=== PATIENT | female | born 1940 | race African-American/Black ===

== ENCOUNTER 2020-06-17 18:32 | Inpatient (IN) | payer MEDICARE, MEDICAID, OTHER ==
--- NOTE | 2020-06-17 19:14 | RAD ---
Exam: Chest one view HISTORY:Trauma. COVID pneumonia. Comparison: 01/06/2020 FINDINGS: Cardiac silhouette:Cardiomegaly. Aorta: Atherosclerosis Pulmonary vessels: Normal Costophrenic angles: Clear LUNGS: Hyperinflation. Interstitial and alveolar infiltrates predominantly in the right lower lobe. Pneumothorax: None Osseous abnormalities: None IMPRESSION: 1. Cardiomegaly 2. Atherosclerosis 3. Interstitial and alveolar opacities in the right lower lobe.
--- NOTE | 2020-06-17 19:22 | CT ---
Exam: Head CT without contrast HISTORY: Unwitnessed fall COMPARISON: 12/07/2019 FINDINGS: Hemorrhage: No intraparenchymal hemorrhage or extra-axial hematoma. Brain parenchyma: Cortical carmona-white matter differentiation is preserved. No mass effect or midline shift. Basilar cisterns are patent.Diffuse atrophy. Confluent white matter hypodensities due to chronic small vessel ischemic change. Ventricular system: Marked dilatation of ventricular system which is slightly greater than expected f or the degree of atrophy. Ventricular dilatation has not increased since the previous examination. Correlate for normal pressure hydrocephalus. Calvarium: Intact. Sinuses and mastoid air cells: Adequate aeration. IMPRESSION: No acute intracranial process.
[2020-06-17 19:52] LABS: Hemoglobin 7.2 g/dL (12.0-16.0); Mean Corpuscular HGB CONC 29.6 g/dL (32.0-36.0); Mean Corpuscular Hemoglobin 29.2 pg (27.0-31.0); Mean Corpuscular Volume 98.8 fL (78.0-98.0); Mean Platelet Volume 7.7 fL (7.4-10.4); Platelet Count 408 thou/uL (130-400); RBC Distribution Width 16.3 % (11.5-14.5); Red Blood Cell (RBC) Count 2.46 mill/uL (4.20-5.40)
[2020-06-17 20:04] LABS: Anisocytosis SLIGHT = 6-15 cells (100X) (0-5/hpf); Band 8 % (5-11); Lymphocytes 4 % (21-51); MDiff Complete? YES; Monocytes 2 % (0-10); Neutrophil 86 % (42-75); Platelet Morphology Comment Appears Increased; Polychromasia SLIGHT = 2-3 cells (100X) (0-2/hpf); Target Cells SLIGHT = 2-5 cells (100X) (0-1/hpf); White Blood Cell (WBC) Count 24.9 thou/uL (4.8-10.8)
[2020-06-17 20:12] LABS: ALT (SGPT) Less than 7 U/L (8-55); AST (SGOT) 19 U/L (5-34); Albumin 2.7 g/dL (3.4-4.8); Alkaline Phosphatase 103 U/L (40-110); Anion Gap 18 mmol/L (10-20); BUN (Urea Nitrogen) 34 mg/dL (9.8-20.1); Bilirubin, Total 0.2 mg/dL (0.2-1.2); Calc. Creatinine Clearance 0 mL/min (70-130); Calcium 8.5 mg/dL (7.8-10.44); Carbon Dioxide 21 mmol/L (23-31); Chloride 111 mmol/L (98-107); Estimated GFR-MDRD 61; Globulin 4.4 g/dL (2.4-3.5); Glucose 144 mg/dL (83-110); Potassium 4.2 mmol/L (3.5-5.1); Protein, Total 7.1 g/dL (6.0-8.3); Sodium 146 mmol/L (136-145)
[2020-06-17] MEDS ORDERED: Cefepime 1 GM VIAL ONE (20:27)
[2020-06-17] MEDS ORDERED: Cefepime 1 GM in Sodium Chloride 0.9% 100 ML IVPB SCH (20:30)
[2020-06-17] MEDS ORDERED: Sodium Chloride 0.9% 1,000 ML IV SCH ×2 (20:30→23:15)
[2020-06-17] MEDS ORDERED: Vancomycin HCl 750 MG in Sodium Chloride 0.9% 250 ML 250 ML IVPB SCH (20:30)
[2020-06-17 20:34] LABS: Bilirubin Negative (Negative); Blood, Urine Negative (Negative); Clarity Turbid (Clear); Glucose, Urine (Dipstick) Normal (Negative); Ketone, Urine Trace mg/dL (Negative); Leukocyte 250 Leu/uL (Negative); Nitrite Negative (Negative); Protein, Urine (Dipstick) 50 mg/dL (Neg-Trace); RBC/HPF 0-3 HPF (0-3); Specific Gravity, Urine 1.028 (1.002-1.036); Squamous Epithelial 0-3 HPF (0-3); Urobilinogen Normal mg/dL (Less than 2); pH, Urine 5.5 (5.0-9.0)
[2020-06-17 20:39] LABS: Bacteria/HPF Rare-Few HPF (None Seen); Yeast-Budding 2+ HPF (None Seen)
[2020-06-17 22:51] LABS: Lactic Acid 3.1 mmol/L (0.5-2.2)
[2020-06-17] MEDS ORDERED: cloNIDine 0.1 MG TAB PO PRN (23:10)
[2020-06-17] MEDS ORDERED: Labetalol HCl 100 MG/20 ML VIAL SLOW IVP PRN (23:10)
[2020-06-17] MEDS ORDERED: hydrALAZINE 20 MG/ML VIAL SLOW IVP PRN (23:10)
[2020-06-17] MEDS ORDERED: Ondansetron PF 4 MG/2 ML Vial IVP PRN (23:10)
[2020-06-17] MEDS ORDERED: Promethazine HCl 12.5 MG in Sodium Chloride 0.9% 50 ML IVPB PRN (23:10)
[2020-06-17] MEDS ORDERED: Bisacodyl 5 MG TAB PO PRN (23:12)
--- NOTE | 2020-06-17 23:15 | PDOC.HHP ---
Hospitalist HPI - History of Present Illness Fall, altered mental status History of Present Illness: Patient is a 79 year old female with PMH COPD, dementia, HTN, GERD, rheumatoid arthritis who presents to ED for unwitnessed fall. Patient lives at [facility] and was found on floor around 1830, unknown duration on floor, she was AOx0 and at baseline is AOx1. She has longstanding RLE dry gangrene and has not been able to have operations reportedly per ortho and cardiology as stated by [facility] hospital records she was sent with, otherwise there is no supporting evidence provided of issues, they do report that this is an ischemic leg Hospitalist ROS - Review of Systems ROS unobtainable: due to mental status - Medication Medications: ascorbic acid (vitamin C) oral TueJun 17, 2020 19:37 ZOIE Ruiz Hannah tablet : Strength - 500 mg : ORAL Patient Dose: 1 tab(s) Oral 2 times a day. budesonide inhalation TueJun 17, 2020 19:38 ZOIE Ruiz Hannah suspension for nebulization : Strength - 0.5 mg/2 mL : INHALATION Patient Dose: 2 mL Inhaler every 12 hours PRN. Claritin TueJun 17, 2020 19:38 ZOIE Ruiz Hannah tablet : Strength - 10 mg : ORAL Patient Dose: 1 tab(s) Oral once a day. docusate sodium TueJun 17, 2020 19:39 ZOIE Ruiz Hannah tablet : Strength - 100 mg : ORAL Patient Dose: 1 tab(s) Oral 2 times a day. donepezil TueJun 17, 2020 19:40 ZOIE Ruiz Hannah tablet : Strength - 10 mg : ORAL Patient Dose: 1 tab(s) Oral once a day (at bedtime). ferrous sulfate TueJun 17, 2020 19:41 ZOIE Ruiz Hannah tablet : Strength - 325 mg (65 mg iron) : ORAL Patient Dose: 1 tab(s) Oral 2 times a day. Lactobacillus acidophilus TueJun 17, 2020 19:42 ZOIE Ruiz Hannah capsule : ORAL Patient Dose: 1 cap(s) Oral once a day. leflunomide TueJun 17, 2020 19:42 ZOIE Ruiz Hannah tablet : Strength - 20 mg : ORAL Patient Dose: 1 tab(s) Oral once a day. levETIRAcetam oral TueJun 17, 2020 19:43 ZOIE Ruiz Hannah tablet : Strength - 500 mg : ORAL Patient Dose: 1 tab(s) Oral 2 times a day. magnesium TueJun 17, 2020 19:43 ZOIE Ruiz Hannah tablet : Strength - 200 mg : ORAL Patient Dose: 2 tab(s) Oral 2 times a day. metoprolol tartrate oral TueJun 17, 2020 19:44 ZOIE Ruiz Hannah tablet : Strength - 50 mg : ORAL Patient Dose: 1 tab(s) Oral 2 times a day. miSOPROStol TueJun 17, 2020 19:44 ZOIE Ruiz Hannah tablet : Strength - 200 mcg : ORAL Patient Dose: 1 tab(s) Oral 3 times a day. multivitamin oral TueJun 17, 2020 19:45 ZOIE Ruiz Hannah tablet : ORAL Patient Dose: 1 tab(s) Oral once a day. Tylenol TueJun 17, 2020 19:45 ZOIE Ruiz Hannah tablet : Strength - 325 mg : ORAL Patient Dose: 2 tab(s) Oral every 6 hours PRN. Tylenol-Codeine #3 TueJun 17, 2020 19:46 ZOIE Ruiz Hannah tablet : Strength - 300 mg-30 mg : ORAL Patient Dose: 1 tab(s) Oral every 6 hours PRN. Hospitalist History - Past Medical History Other Medical History: COPD, dementia, HTN, GERD, rheumatoid arthritis - Past Surgical History Other Surgical History: unable to obtain due to altered mental status - Family History Other Family History: unable to obtain due to altered mental status - Social History Smoking Status: Never smoker Alcohol: reports: None Drugs: reports: none - Exam General Appearance: NAD, awake alert General - other findings: altered mental status Eye: PERRL, anicteric sclera ENT: normocephalic atraumatic, no oropharyngeal lesions Neck: supple, no JVD Heart: RRR, no murmur, no gallops Respiratory: CTAB, no wheezes, no rales, no ronchi Gastrointestinal: soft, non-tender, non-distended, normal bowel sounds Extremities: no clubbing, no edema Extremities - other findings: RLE contracted with dry gangrene and eschar on most of leg no erythema Skin - other findings: as above under extremities Neurological - other findings: contracture to extremities, altered mental status Musculoskeletal - other findings: contracture to extremities, RLE as above Psychiatric - other findings: altered mental status Hospitalist Results - Labs Result Diagrams: 06/17/20 19:42 06/17/20 19:42 Lab results: WBC 24.9 thou/uL (4.8-10.8) H 06/17/20 19:42 Hgb 7.2 g/dL (12.0-16.0) L 06/17/20 19:42 Hct 24.3 % (36.0-47.0) L 06/17/20 19:42 MCV 98.8 fL (78.0-98.0) H 06/17/20 19:42 Plt Count 408 thou/uL (130-400) H 06/17/20 19:42 Band Neuts % (Manual) 8 % (5-11) 06/17/20 19:42 Sodium 146 mmol/L (136-145) H 06/17/20 19:42 Potassium 4.2 mmol/L (3.5-5.1) 06/17/20 19:42 Chloride 111 mmol/L (98-107) H 06/17/20 19:42 Carbon Dioxide 21 mmol/L (23-31) L 06/17/20 19:42 BUN 34 mg/dL (9.8-20.1) H 06/17/20 19:42 Creatinine 1.05 mg/dL (0.6-1.1) 06/17/20 19:42 Glucose 144 mg/dL (83-110) H 06/17/20 19:42 Lactic Acid 3.1 mmol/L (0.5-2.2) H 06/17/20 22:27 Calcium 8.5 mg/dL (7.8-10.44) 06/17/20 19:42 Total Bilirubin 0.2 mg/dL (0.2-1.2) 06/17/20 19:42 AST 19 U/L (5-34) 06/17/20 19:42 ALT Less than 7 U/L (8-55) L 06/17/20 19:42 Alkaline Phosphatase 103 U/L (40-110) 06/17/20 19:42 Serum Total Protein 7.1 g/dL (6.0-8.3) 06/17/20 19:42 Albumin 2.7 g/dL (3.4-4.8) L 06/17/20 19:42 Urine Ketones Trace mg/dL (Negative) A 06/17/20 19:00 Urine Blood Negative (Negative) 06/17/20 19:00 Urine Nitrite Negative (Negative) 06/17/20 19:00 Ur Leukocyte Esterase 250 Luis/uL (Negative) A 06/17/20 19:00 Urine RBC 0-3 HPF (0-3) 06/17/20 19:00 Urine WBC 11-20 HPF (0-3) A 06/17/20 19:00 Ur Squamous Epith Cells 0-3 HPF (0-3) 06/17/20 19:00 Urine Bacteria Rare-Few HPF (None Seen) 06/17/20 19:00 Additional comment: VITAL SIGNS TueJun 17, 2020 23:01 ZOIE Bender Miranda BP: 128/66 Pulse: 92 O2 sat: 96 on (Room Air) Time: 06/17/2020 23:01. outside records reviewed ~[address] head, CXR reports reviewed - EKG Interpretation EKG: sinus tachycardia, rate 102, no ST elevtions or dropped beats Hospitalist H&P A/P - Plan Plan: Patient is a 79 year old female with PMH COPD, dementia, HTN, GERD, rheumatoid arthritis who presents to ED for unwitnessed fall. 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 # sepsis due to above - admit to floor - surgery consulted by ED - consult wound care - empiric vancomycin/unasyn - follow cultures - in past has been deemed not surgical candidate by cardiology, consult cardiology, no testing records were provided - has previously tested positive for covid but now negative # hypernatremia - in setting of hypovolemia and sepsis, IVF and trend BMP # metabolic encephalopathy - treat infection as above # lung opacities - history of covid, no respiratory symptoms currently may be resolving pneumonia # COPD - PRN duonebs, continue budesonide, hold claritin # UTI - will be treated with above abx, follow cultures # Dementia - continue donepezil # history of seizure - continue keppra # RA - hold leflunomide in setting of infection, PRN pain medications ordered # HTN - prn medications ordered, continue metoprolol # anemia - chronic, hold DVT ppx # GERD - H2RA # debility - requires full care, consult therapy and case management DVT ppx - held due to lower extremity edema and wounds so no SCDs, lovenox held due to anemia Code status - full per longterm records
[2020-06-18] MEDS: Ampicillin/Sulbactam 3 GM in Sodium Chloride 0.9% 100 ML IVPB SCH ×4 (00:23→18:27)
[2020-06-18 00:37] VITALS: BMI 26.2
[2020-06-18 05:31] LABS: #Basophils 0.1 thou/uL (0.0-0.2); #Lymphocytes 1.6 thou/uL (1.20-3.40); #Neutrophils 19.5 thou/uL (1.40-6.50); %Basophils 0.3 % (0.0-1.0); %Eosinophils 0.1 % (0.0-10.0); %Monocytes 4.7 % (0.0-10.0); %Neutrophils 87.9 % (42.0-75.0); Hemoglobin 6.7 g/dL (12.0-16.0); Mean Corpuscular HGB CONC 28.5 g/dL (32.0-36.0); Mean Corpuscular Hemoglobin 28.2 pg (27.0-31.0); Mean Corpuscular Volume 98.8 fL (78.0-98.0); Mean Platelet Volume 8.6 fL (7.4-10.4); Platelet Count 374 thou/uL (130-400); RBC Distribution Width 16.3 % (11.5-14.5); Red Blood Cell (RBC) Count 2.36 mill/uL (4.20-5.40); White Blood Cell (WBC) Count 22.2 thou/uL (4.8-10.8)
[2020-06-18 05:40] LABS: Anion Gap 16 mmol/L (10-20); BUN (Urea Nitrogen) 31 mg/dL (9.8-20.1); Calc. Creatinine Clearance 36 mL/min (70-130); Calcium 7.8 mg/dL (7.8-10.44); Carbon Dioxide 19 mmol/L (23-31); Chloride 116 mmol/L (98-107); Estimated GFR-MDRD 84; Glucose 102 mg/dL (83-110); Sodium 147 mmol/L (136-145)
[2020-06-18] MEDS ORDERED: Budesonide 0.5 MG/2 ML NEB INH SCH (06:30)
[2020-06-18] MEDS: levETIRAcetam 500 MG TAB PO SCH ×2 (08:21→19:56)
[2020-06-18] MEDS: Famotidine 20 MG TAB PO SCH ×2 (08:21→19:56)
[2020-06-18] MEDS ORDERED: Enoxaparin Sodium 30 MG/0.3 ML SYRINGE SC SCH (09:00)
--- NOTE | 2020-06-18 10:06 | PDOC.HOSPP ---
- Subjective Encounter Date: 06/18/20 Subjective: Confused related to dementia. - Objective Vital Signs & Weight: Vital Signs (12 hours) Temp Pulse Resp BP BP Pulse Ox 06/18/20 07:42 104 H 16 100 06/18/20 07:40 104 H 16 100 06/18/20 07:15 98.7 F 106 H 15 131/66 97 06/18/20 05:18 97.9 F 98 16 101/62 100 06/17/20 23:35 97.8 F 104 H 18 156/64 H 100 Weight Weight 85 lb 12.157 oz I&O: 06/17/20 06/18/20 06/19/20 06:59 06:59 06:59 Output Total 300 Balance -300 Result Diagrams: 06/18/20 05:13 06/18/20 05:13 Hospitalist ROS - Medication Medications: Active Medications Generic Name Dose Route Start Last Admin Trade Name Freq PRN Reason Stop Dose Admin Albuterol/Ipratropium 3 ml 06/17/20 23:10 06/18/20 07:42 Duoneb NEB 3 ml [id number] PRN Administration SOB &/or Wheezing Budesonide 0.5 mg 06/18/20 06:30 06/18/20 07:40 Pulmicort Neb Solution INH 0.5 mg BID-RT JOSE Administration Famotidine 20 mg 06/18/20 09:00 06/18/20 08:21 Pepcid PO Not Given BID JOSE Ampicillin Sodium/Sulbactam 100 mls @ 200 mls/hr 06/17/20 23:59 06/18/20 05: 56 Sodium 3 gm/ Sodium Chloride IVPB 100 mls Q6HR JOSE Administration Levetiracetam 500 mg 06/18/20 09:00 06/18/20 08:21 Keppra PO Not Given BID JOSE Sodium Chloride 10 ml 06/18/20 09:00 06/18/20 08:21 Flush - Normal Saline IVF Not Given Q12HR JOSE - Exam General - other findings: Nonverbal and confused Neck: supple Respiratory: normal chest expansion, no tachypnea Extremities - other findings: Left lower extremity from the toes to below the knee is Gangrenous Hosp A/P - Plan Hospitalist H&P A/P - Plan Plan: Patient is a 79 year old female with PMH COPD, dementia, HTN, GERD, rheumatoid arthritis who presents to ED for unwitnessed fall. 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 # sepsis due to above - admit to floor - surgery consulted by ED - consult wound care - empiric vancomycin/unasyn - follow cultures - in past has been deemed not surgical candidate by cardiology, consult cardiology, no testing records were provided - has previously tested positive for covid but now negative # hypernatremia - in setting of hypovolemia and sepsis, IVF and trend BMP # metabolic encephalopathy - treat infection as above # lung opacities - history of covid, no respiratory symptoms currently may be resolving pneumonia # COPD - PRN duonebs, continue budesonide, hold claritin # UTI - will be treated with above abx, follow cultures # Dementia - continue donepezil # history of seizure - continue keppra # RA - hold leflunomide in setting of infection, PRN pain medications ordered # HTN - prn medications ordered, continue metoprolol # anemia - chronic, hold DVT ppx # GERD - H2RA # debility - requires full care, consult therapy and case management DVT ppx - held due to lower extremity edema and wounds so no SCDs, lovenox held due to anemia Code status - full per [facility] records 06/18: Patient is septic likely due to UTI. We continued IV antibiotics for now. Gangrenous left lower extremity. Dr. Roawn discussed patient's condition with the family. He has extremely poor prognosis long-term. Recommended against amputation, PEG tube, and full CODE STATUS. The family expressed understanding. Consult for palliative care to facilitate goals of care discussed hospice.
[2020-06-18 12:09] LABS: SARS-CoV-2 by NAA DETECTED (NotDetected)
[2020-06-18 12:10] LABS: SARS-CoV-2 MS2 Positive; SARS-CoV-2 N Gene Positive; SARS-CoV-2 S Gene Positive; SARS-CoV-2 orf1ab Positive
--- NOTE | 2020-06-18 13:02 | CON ---
DATE OF CONSULTATION: HISTORY OF PRESENT ILLNESS: Aidee Fuentes is a 79-year-old female patient, had been in a care facility, brought into the hospitalist service late last night. I was consulted regarding gangrenous right leg and poor intake. The patient is a resident at [facility]. I have talked to the daughter on the telephone, who informed me the patient has a history of dementia, severe rheumatoid arthritis, and disability, bedridden and nonambulatory. She suffers hypertension and GERD and presents for an unwitnessed fall. The family states that she does talk occasionally, although she will not talk to me. Daughter states that she was recently at [facility], and amputation was considered, but she was anemic and hypokalemic and the operation was not performed. This hospitalization, her potassium is normal, renal function is normal, hemoglobin was 7.2 yesterday and 6.7 today, and white count [id number]. Blood cultures obtained, no growth today. The patient has a Quintanilla catheter in place. ALLERGIES: REPORTED NONE. MEDICATIONS: From the correction: 1. Zinc. 2. Misoprostol. 3. Tylenol No. 3. 4. Multivitamin. 5. Ascorbic acid. 6. Tylenol. 7. Keppra. 8. Metoprolol. 9. Arava. 10. Lactobacillus. 11. Ferrous sulfate. 12. Colace. 13. Loratidine. REVIEW OF SYSTEMS: The patient cannot give a history and past history is taken from the hospital records. The patient is bed ridden, nonambulatory, resident at [facility]. PAST MEDICAL HISTORY: She has a history of: 1. GERD. 2. Hypertension. 3. Rheumatoid arthritis, nonambulatory status. 4. COPD. 5. PAD with arteriosclerosis and gangrene of her right leg to below the knee, contracture of right leg, unable to straighten her right hip and knee. The patient's family denies that she had a stroke. SOCIAL HISTORY: Tobacco, alcohol, and drug never. PAST SURGICAL HISTORY: None reported. PHYSICAL EXAMINATION: VITAL SIGNS: Height 4 feet tall, weight 85 pounds, 26 BMI, temperature 98.7, heart rate 104, and blood pressure 131/66. HEAD, EARS, EYES, NOSE, AND THROAT: Unremarkable. LUNGS: Clear. CARDIAC: Regular rate and rhythm. ABDOMEN: Soft. EXTREMITIES: I can palpate femoral pulse with some difficulties. She has a contracted right knee and right hip. I cannot straighten them out. She has dry gangrene of the entire right leg below the knee. LABORATORY DATA: As noted with severe anemia. ASSESSMENT AND PLAN: The patient is a full code. She has dry gangrene in the right leg and surgical intervention is not warranted. She is feeding poorly and feeding tube should be considered and discussed with the family. Code status should be discussed with family. I then on the telephone talked to the patient's daughter who lives in [place]. There are other family members in [place]. One of the family members was refused to access to visit their mother yesterday because of the COVID situation. I have talked to the daughter in [place] and she requests the family to be able to see her and I have put the family in contact with nursing to allow the family to visit her to help establish code status. We would recommend DNR status. Family does not want a feeding tubes, tracheostomies, or amputations and I agree that this would not be appropriate as it would not improve her quality of life. Would suggest DNR status and the family will discuss that. At this point, I will see her as needed. Please call if necessary. I suspect her sepsis is due to urinary source or pneumonia or decubitus, but not her right leg. Job ID: [id number]
--- NOTE | 2020-06-18 14:48 | CON ---
DATE OF CONSULTATION: CONSULTING DOCTOR: Dr. Murray. HISTORY OF PRESENT ILLNESS: The patient is an unfortunate woman with severe dementia and cachexia, who presents with a gangrenous foot and may need to undergo surgery. The patient is unable to give any type of coherent history. She was recently at the [facility] with sepsis. She was apparently felt to be at high risk for complication from undergoing surgery. She was in the [facility] when she apparently fell. The patient was admitted for further evaluation. PAST MEDICAL HISTORY: Significant for; 1. Dementia. 2. History of renal failure. 3. Cachexia. 4. Hypertension. 5. COPD. PAST SURGICAL HISTORY: SOCIAL HISTORY: Lives in [facility]. MEDICATIONS: See nursing list. ALLERGIES: NO KNOWN DRUG ALLERGIES. REVIEW OF SYSTEMS: Not obtainable. PHYSICAL EXAMINATION: VITAL SIGNS: Blood pressure 131/66, heart rate is 106. Physical exam is deferred due to COVID. LABORATORY RESULTS: White blood cell count 22.2, hemoglobin 6.7, hematocrit 23.3, platelets 374. Sodium 147, potassium 4.0, chloride 116, bicarb 19, BUN 31, creatinine was 0.8. Her EKG revealed sinus tachycardia with low-voltage QRS and poor R-wave progression. IMPRESSION: 1. Sepsis. 2. Gangrene. 3. Dementia. 4. History of renal failure. 5. Cachexia. 6. COVID positive. The patient presents with sepsis and apparently gangrene of her leg. She is COVID positive. The patient is at high risk for cardiac complications from undergoing general anesthesia, with overall poor health, if there is no viable good alternative, then we would proceed with surgery after discussing with the family, their wishes. We will follow this patient with you through her hospitalization. Job ID: [id number]
[2020-06-18] MEDS ORDERED: Albuterol 200 PUFF (6.7GM INHALER) INH PRN (17:04)
[2020-06-18] MEDS: Mometasone 100 MCG/PUFF (1 INHALER) INH SCH (19:28)
[2020-06-18] MEDS: Guaifenesin DM 100-10/5 ML UDCUP PO PRN (19:57)
[2020-06-18 21:41] LABS: Vancomycin, Random 8.8 ug/mL (See Comment)
[2020-06-18] MEDS ORDERED: Vancomycin HCl 750 MG in Sodium Chloride 0.9% 250 ML 250 ML IVPB SCH (22:30)
[2020-06-18] MEDS ORDERED: Vancomycin HCl 500 MG in Sodium Chloride 0.9% 100 ML IVPB SCH (23:00)
[2020-06-19] MEDS: Ampicillin/Sulbactam 3 GM in Sodium Chloride 0.9% 100 ML IVPB SCH ×5 (00:37→23:05)
[2020-06-19] MEDS: Mometasone 100 MCG/PUFF (1 INHALER) INH SCH ×2 (06:20→20:18)
[2020-06-19 06:28] LABS: Hemoglobin 6.1 g/dL (12.0-16.0); Mean Corpuscular Hemoglobin 28.4 pg (27.0-31.0); Mean Platelet Volume 8.6 fL (7.4-10.4); Platelet Count 378 thou/uL (130-400); RBC Distribution Width 16.4 % (11.5-14.5); Red Blood Cell (RBC) Count 2.16 mill/uL (4.20-5.40); White Blood Cell (WBC) Count 19.5 thou/uL (4.8-10.8)
[2020-06-19 06:32] LABS: Band 21 % (5-11); Lymphocytes 11 % (21-51); MDiff Complete? YES; Monocytes 1 % (0-10); Neutrophil 67 % (42-75); Platelet Morphology Comment Appears Adequate
[2020-06-19 06:38] LABS: Anion Gap 16 mmol/L (10-20); BUN (Urea Nitrogen) 30 mg/dL (9.8-20.1); Calc. Creatinine Clearance 40 mL/min (70-130); Calcium 8.2 mg/dL (7.8-10.44); Carbon Dioxide 20 mmol/L (23-31); Chloride 115 mmol/L (98-107); Estimated GFR-MDRD Greater than 90; Glucose 98 mg/dL (83-110); Sodium 147 mmol/L (136-145)
[2020-06-19] MEDS: Famotidine 20 MG TAB PO SCH ×2 (08:35→20:18)
[2020-06-19] MEDS: levETIRAcetam 500 MG TAB PO SCH ×2 (08:35→20:18)
--- NOTE | 2020-06-19 10:03 | PDOC.HOSPP ---
- Subjective Encounter Date: 06/19/20 Subjective: The patient is pleasantly confused. - Objective Vital Signs & Weight: Vital Signs (12 hours) Temp Pulse Resp BP Pulse Ox 06/19/20 04:00 98 F 99 18 127/69 100 06/18/20 23:46 97.7 F 105 H 18 116/69 99 Weight Admit Weight 85 lb 12.157 oz Weight 85 lb 12.157 oz I&O: 06/18/20 06/19/20 06/20/20 06:59 06:59 06:59 Intake Total 1300 Output Total 300 350 Balance -300 950 Result Diagrams: 06/19/20 05:22 06/19/20 05:22 Hospitalist ROS - Medication Medications: Active Medications Generic Name Dose Route Start Last Admin Trade Name Freq PRN Reason Stop Dose Admin Famotidine 20 mg 06/18/20 09:00 06/19/20 08:35 Pepcid PO 20 mg BID JOSE Administration Guaifenesin/Dextromethorphan 15 ml 06/17/20 23:10 06/18/20 19:57 Robitussin Dm PO 15 ml Q4H PRN Administration Cough Ampicillin Sodium/Sulbactam 100 mls @ 200 mls/hr 06/17/20 23:59 06/19/20 05: 12 Sodium 3 gm/ Sodium Chloride IVPB 100 mls Q6HR JOSE Administration Levetiracetam 500 mg 06/18/20 09:00 06/19/20 08:35 Keppra PO 500 mg BID JOSE Administration Mometasone Furoate 200 mcg 06/18/20 18:30 06/19/20 06:20 Asmanex Hfa 100 Mcg INH Not Given BID-RT JOSE Sodium Chloride 10 ml 06/18/20 09:00 06/19/20 08:35 Flush - Normal Saline IVF Not Given Q12HR JOSE - Exam General Appearance: awake alert General - other findings: Confused Neck: supple, no JVD Respiratory: normal chest expansion, no tachypnea Gastrointestinal: soft Musculoskeletal - other findings: Necrotic left lower extremity with contractures Hosp A/P - Plan Hospitalist H&P A/P - Plan Plan: Patient is a 79 year old female with PMH COPD, dementia, HTN, GERD, rheumatoid arthritis who presents to ED for unwitnessed fall. 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 # sepsis due to above - admit to floor - surgery consulted by ED - consult wound care - empiric vancomycin/unasyn - follow cultures - in past has been deemed not surgical candidate by cardiology, consult cardiology, no testing records were provided - has previously tested positive for covid but now negative # hypernatremia - in setting of hypovolemia and sepsis, IVF and trend BMP # metabolic encephalopathy - treat infection as above # lung opacities - history of covid, no respiratory symptoms currently may be resolving pneumonia # COPD - PRN duonebs, continue budesonide, hold claritin # UTI - will be treated with above abx, follow cultures # Dementia - continue donepezil # history of seizure - continue keppra # RA - hold leflunomide in setting of infection, PRN pain medications ordered # HTN - prn medications ordered, continue metoprolol # anemia - chronic, hold DVT ppx # GERD - H2RA # debility - requires full care, consult therapy and case management DVT ppx - held due to lower extremity edema and wounds so no SCDs, lovenox held due to anemia Code status - full per intermediate records 06/18: Patient is septic likely due to UTI. We continued IV antibiotics for now. Gangrenous left lower extremity. Dr. Rowan discussed patient's condition with the family. He has extremely poor prognosis long-term. Recommended against amputation, PEG tube, and full CODE STATUS. The family expressed understanding. Consult for palliative care to facilitate goals of care discussed hospice. 06/19: The patient appears to be clinically stable today. She is confused. Her hypernatremia is persistent despite D5 with quarter normal saline. I will change her fluids to D5W. Repeat BMP in the a.m. Family are discussing her situation amongst themselves to make a decision regarding her disposition and goals of care. Urine culture is pending. Continue IV antibiotics. The patient covid positive but she is currently not hypoxic.
[2020-06-19] MEDS: Dextrose 5% in Water 1,000 ML IV SCH (11:55)
[2020-06-19] MEDS: Acetaminophen 325 MG TAB PO PRN (20:18)
[2020-06-19] MEDS: Guaifenesin DM 100-10/5 ML UDCUP PO PRN (20:19)
[2020-06-19 22:51] LABS: Vancomycin, Random 5.9 ug/mL (See Comment)
[2020-06-19] MEDS ORDERED: Vancomycin 1 GM in Premix Bag 1 BAG IVPB SCH (23:15)
[2020-06-20] MEDS: Dextrose 5% in Water 1,000 ML IV SCH (00:08)
[2020-06-20] MEDS: Ampicillin/Sulbactam 3 GM in Sodium Chloride 0.9% 100 ML IVPB SCH ×3 (05:06→17:48)
[2020-06-20] MEDS: Mometasone 100 MCG/PUFF (1 INHALER) INH SCH ×2 (06:37→17:42)
[2020-06-20] MEDS: Famotidine 20 MG TAB PO SCH ×2 (07:45→20:04)
[2020-06-20] MEDS: levETIRAcetam 500 MG TAB PO SCH ×2 (07:45→20:04)
[2020-06-20 07:58] LABS: Band 7 % (5-11); Burr Cells SLIGHT = 2-5 cells (100X) (0-1/hpf); Hemoglobin 5.9 g/dL (12.0-16.0); Hypochromia MODERATE=16-30 cells (100X) (0-5/hpf); Lymphocytes 7 % (21-51); MDiff Complete? YES; Mean Corpuscular HGB CONC 30.4 g/dL (32.0-36.0); Mean Corpuscular Hemoglobin 30.4 pg (27.0-31.0); Mean Platelet Volume 8.1 fL (7.4-10.4); Monocytes 2 % (0-10); Neutrophil 83 % (42-75); Platelet Count 374 thou/uL (130-400); Platelet Morphology Comment Appears Adequate; Poikilocytosis MODERATE=16-30 cells (100X) (0-5/hpf); Polychromasia SLIGHT = 2-3 cells (100X) (0-2/hpf); RBC Distribution Width 17.1 % (11.5-14.5); Red Blood Cell (RBC) Count 1.96 mill/uL (4.20-5.40); Schistocytes SLIGHT = 2-5 cells (100X) (0-1/hpf); White Blood Cell (WBC) Count 13.8 thou/uL (4.8-10.8)
--- NOTE | 2020-06-20 09:59 | PDOC.HOSPP ---
- Subjective Encounter Date: 06/20/20 Subjective: Confused. - Objective Vital Signs & Weight: Vital Signs (12 hours) Temp Pulse Resp BP Pulse Ox 06/20/20 08:00 100 06/20/20 07:45 98.0 F 102 H 18 152/76 H 100 06/19/20 23:24 97.8 F 93 18 103/60 100 Weight Admit Weight 85 lb 12.157 oz Weight 85 lb 12.157 oz I&O: 06/19/20 06/20/20 06/21/20 06:59 06:59 06:59 Intake Total 1300 120 Output Total 350 Balance 950 120 Result Diagrams: 06/20/20 06:46 06/19/20 05:22 Hospitalist ROS - Medication Medications: Active Medications Generic Name Dose Route Start Last Admin Trade Name Freq PRN Reason Stop Dose Admin Acetaminophen 650 mg 06/17/20 23:10 06/19/20 20:18 Tylenol PO 650 mg Q4H PRN Administration Headache/Fever/Mild Pain (1-3) Famotidine 20 mg 06/18/20 09:00 06/20/20 07:45 Pepcid PO 20 mg BID JOSE Administration Guaifenesin/Dextromethorphan 15 ml 06/17/20 23:10 06/19/20 20:19 Robitussin Dm PO 15 ml Q4H PRN Administration Cough Ampicillin Sodium/Sulbactam 100 mls @ 200 mls/hr 06/17/20 23:59 06/20/20 05: 06 Sodium 3 gm/ Sodium Chloride IVPB 100 mls Q6HR JOSE Administration Levetiracetam 500 mg 06/18/20 09:00 06/20/20 07:45 Keppra PO 500 mg BID JOSE Administration Mometasone Furoate 200 mcg 06/18/20 18:30 06/20/20 06:37 Asmanex Hfa 100 Mcg INH Not Given BID-RT JOSE Sodium Chloride 10 ml 06/18/20 09:00 06/20/20 07:46 Flush - Normal Saline IVF 10 ml Q12HR JOSE Administration - Exam General Appearance: awake alert ENT: normocephalic atraumatic Neck: supple Heart: RRR Respiratory: normal chest expansion, no tachypnea Extremities: no cyanosis Extremities - other findings: RLE necrosis Hosp A/P - Plan Hospitalist H&P A/P - Plan Plan: Patient is a 79 year old female with PMH COPD, dementia, HTN, GERD, rheumatoid arthritis who presents to ED for unwitnessed fall. 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 # sepsis due to above - admit to floor - surgery consulted by ED - consult wound care - empiric vancomycin/unasyn - follow cultures - in past has been deemed not surgical candidate by cardiology, consult cardiology, no testing records were provided - has previously tested positive for covid but now negative # hypernatremia - in setting of hypovolemia and sepsis, IVF and trend BMP # metabolic encephalopathy - treat infection as above # lung opacities - history of covid, no respiratory symptoms currently may be resolving pneumonia # COPD - PRN duonebs, continue budesonide, hold claritin # UTI - will be treated with above abx, follow cultures # Dementia - continue donepezil # history of seizure - continue keppra # RA - hold leflunomide in setting of infection, PRN pain medications ordered # HTN - prn medications ordered, continue metoprolol # anemia - chronic, hold DVT ppx # GERD - H2RA # debility - requires full care, consult therapy and case management DVT ppx - held due to lower extremity edema and wounds so no SCDs, lovenox held due to anemia Code status - full per prison records 06/18: Patient is septic likely due to UTI. We continued IV antibiotics for now. Gangrenous left lower extremity. Dr. Rowan discussed patient's condition with the family. He has extremely poor prognosis long-term. Recommended against amputation, PEG tube, and full CODE STATUS. The family expressed understanding. Consult for palliative care to facilitate goals of care discussed hospice. 06/19: The patient appears to be clinically stable today. She is confused. Her hypernatremia is persistent despite D5 with quarter normal saline. I will change her fluids to D5W. Repeat BMP in the a.m. Family are discussing her situation amongst themselves to make a decision regarding her disposition and goals of care. Urine culture is pending. Continue IV antibiotics. The patient covid positive but she is currently not hypoxic. 06/20: The patient's mental status remains the same given her chronic dementia. Her hemoglobin level dropped below 6 today. We will transfuse 2 units of packed RBCs. BMP sample was hemolyzed. I will repeated to see the sodium level. We will change IV fluids to D5 with half-normal saline if her sodium level improves. Awaiting family response regarding hospice.
--- NOTE | 2020-06-20 10:18 | PDOC.PALFU ---
Palliative Care Follow-up Note Attempted again to Call patient daughter Ruth, have left voice message and again today 06/20/2020. Number listed on patient demographic sheet is incorrect and not a working number. Ruth [phone]
[2020-06-20] MEDS: Dextrose 5 %-0.45 % NaCl 1,000 ML IV SCH (10:46)
--- NOTE | 2020-06-20 11:04 | PDOC.FMACP ---
Advance Care Planning - Problem (1) Ischemia of right lower extremity Status: Acute Code(s): I99.8 - OTHER DISORDER OF CIRCULATORY SYSTEM (2) Metabolic encephalopathy Status: Acute Code(s): G93.41 - METABOLIC ENCEPHALOPATHY (3) COPD (chronic obstructive pulmonary disease) Status: Acute (4) COVID-19 Status: Acute Code(s): U07.1 - COVID-19 - Note Participants: surrogate decision-maker Summary: Discussed Advanced Care Planning with patient daughter who is surrogate decision maker secondary to patient confused state. The diagnosis, prognosis and goals of care were discussed. Appropriate forms and documentation to accomplish the goals of care were discussed. All questions were answered. She states that she does not want to have the resuscitation status addressed again, and to remain with full resuscitation measures in place. They have collectively agreed as a family not to pursue surgery, no PEG/no trach if ever needed. However continue with all other treatments, including resuscitation in needed. No interest in hospice care at this time to manage multiple morbidities. The Palliative Care Team will continue to assist with completion of any outstanding forms as identified. Communicated that I would continue to follow up and potentially readdress the Goal of care if her mothers status declines seocnary to gangrene of lower extremity, COVID, known debilitated state, progression of dementia, and COPD. Communicated with Dr Huntley Time Spent (mins): 30
[2020-06-20 12:32] LABS: Calcium 7.8 mg/dL (7.8-10.44); Chloride 108 mmol/L (98-107); Potassium 3.7 mmol/L (3.5-5.1); Sodium 141 mmol/L (136-145)
[2020-06-20 12:33] LABS: Glucose 86 mg/dL (83-110)
[2020-06-20 12:34] LABS: Anion Gap 15 mmol/L (10-20); Carbon Dioxide 22 mmol/L (23-31)
[2020-06-20 12:36] LABS: Calc. Creatinine Clearance 43 mL/min (70-130); Estimated GFR-MDRD Greater than 90
[2020-06-20 12:37] LABS: BUN (Urea Nitrogen) 20 mg/dL (9.8-20.1)
[2020-06-20] MEDS: Acetaminophen 325 MG TAB PO PRN (20:04)
[2020-06-20] MEDS: Guaifenesin DM 100-10/5 ML UDCUP PO PRN (20:05)
[2020-06-20 22:22] LABS: Vancomycin, Random 14.4 ug/mL (See Comment)
[2020-06-20] MEDS ORDERED: Vancomycin 1 GM in Premix Bag 1 BAG IVPB SCH (23:00)
[2020-06-21] MEDS: Ampicillin/Sulbactam 3 GM in Sodium Chloride 0.9% 100 ML IVPB SCH ×5 (00:09→23:16)
[2020-06-21] MEDS: Mometasone 100 MCG/PUFF (1 INHALER) INH SCH ×2 (06:25→21:14)
[2020-06-21] MEDS: Dextrose 5 %-0.45 % NaCl 1,000 ML IV SCH ×2 (06:25→16:00)
[2020-06-21] MEDS: levETIRAcetam 500 MG TAB PO SCH ×2 (07:50→21:16)
[2020-06-21] MEDS: Famotidine 20 MG TAB PO SCH ×2 (07:50→23:15)
[2020-06-21] MEDS ORDERED: Zolpidem Tartrate 5 MG TAB PO PRN (08:03)
[2020-06-21] MEDS ORDERED: Calcium Carbonate 500 MG ChewTAB PO PRN (08:03)
[2020-06-21] MEDS ORDERED: Bisacodyl 10 MG SUPP PR PRN (08:03)
[2020-06-21] MEDS ORDERED: Ondansetron ODT 4 MG TAB SL PRN (08:03)
[2020-06-21] MEDS ORDERED: Sodium Chloride 0.65% Nasal 44 ML BOT EA NARE PRN (08:03)
[2020-06-21] MEDS ORDERED: Diabetic Tussin 200 MG/10 ML UDCUP PO PRN (08:03)
[2020-06-21] MEDS ORDERED: Loratadine 10 MG TAB PO PRN (08:03)
[2020-06-21] MEDS ORDERED: Loperamide HCl 2 MG CAP PO PRN (08:03)
[2020-06-21] MEDS ORDERED: Cepastat Lozenges 1 LOZ PO PRN (08:03)
[2020-06-21] MEDS ORDERED: Nitroglycerin 0.4 MG TAB (25 Tab Bottle) SL PRN (08:03)
[2020-06-21] MEDS ORDERED: Acetaminophen 650 MG Suppository PR PRN (08:03)
[2020-06-21] MEDS ORDERED: Acetaminophen/Codeine 30-300mg Tablet PO PRN (08:04)
[2020-06-21] MEDS ORDERED: Leflunomide 10 mg Tablet PO SCH (09:30)
[2020-06-21 09:56] LABS: Hemoglobin 10.9 g/dL (12.0-16.0); Mean Corpuscular HGB CONC 32.8 g/dL (32.0-36.0); Mean Corpuscular Hemoglobin 31.1 pg (27.0-31.0); Mean Corpuscular Volume 94.8 fL (78.0-98.0); Mean Platelet Volume 7.6 fL (7.4-10.4); Platelet Count 364 thou/uL (130-400); RBC Distribution Width 15.3 % (11.5-14.5); Red Blood Cell (RBC) Count 3.49 mill/uL (4.20-5.40); White Blood Cell (WBC) Count 15.2 thou/uL (4.8-10.8)
[2020-06-21] MEDS: Lactinex Tablet PO SCH (10:06)
[2020-06-21] MEDS: Multivitamin W/ Minerals 1 TAB PO SCH (10:06)
[2020-06-21] MEDS: Magnesium Oxide 400 MG TAB PO SCH ×2 (10:06→21:16)
[2020-06-21] MEDS: Cyanocobalamin (Vitamin B-12) 1,000 MCG TAB PO SCH (10:06)
[2020-06-21] MEDS: Ascorbic Acid 500 mg Chewable Tablet PO SCH ×2 (10:06→21:16)
[2020-06-21] MEDS: Metoprolol Tartrate 50 MG TAB PO SCH ×2 (10:06→21:16)
[2020-06-21] MEDS: Folic Acid 1 MG TAB PO SCH (10:07)
[2020-06-21] MEDS: Docusate 100 MG CAP PO SCH ×2 (10:07→21:16)
[2020-06-21] MEDS: Ferrous Sulfate 325 MG TAB PO SCH ×2 (10:07→21:15)
[2020-06-21 10:12] LABS: Anion Gap 14 mmol/L (10-20); BUN (Urea Nitrogen) 15 mg/dL (9.8-20.1); Calc. Creatinine Clearance 43 mL/min (70-130); Calcium 7.9 mg/dL (7.8-10.44); Carbon Dioxide 22 mmol/L (23-31); Chloride 110 mmol/L (98-107); Estimated GFR-MDRD Greater than 90; Glucose 82 mg/dL (83-110); Potassium 3.6 mmol/L (3.5-5.1); Sodium 142 mmol/L (136-145)
[2020-06-21 10:16] LABS: Band 3 % (5-11); Eosinophils 1 % (0-10); Lymphocytes 8 % (21-51); MDiff Complete? YES; Monocytes 11 % (0-10); Neutrophil 77 % (42-75)
[2020-06-21] MEDS: Zinc Sulfate 220 MG CAP PO SCH (10:24)
[2020-06-21] MEDS: Misoprostol 200 MCG TAB PO SCH ×3 (10:24→21:17)
[2020-06-21 11:40] LABS: Ferritin 3513.43 ng/mL (10-291)
--- NOTE | 2020-06-21 11:50 | PDOC.HOSPP ---
- Subjective Encounter Date: 06/21/20 Encounter Time: 07:35 Subjective: Patient seen and examined bedside today, no overnight event, patient has dry gangrene foot which smells bad - Objective Vital Signs & Weight: Vital Signs (12 hours) Temp Pulse Resp BP Pulse Ox 06/21/20 08:00 100 06/21/20 07:45 97.8 F 89 18 163/80 H 100 06/20/20 23:53 97.8 F 96 18 139/74 96 Weight Admit Weight 85 lb 12.157 oz Weight 85 lb 12.157 oz I&O: 06/20/20 06/21/20 06/22/20 06:59 06:59 06:59 Intake Total 1230 240 Output Total 400 Balance 830 240 Result Diagrams: 06/21/20 09:46 06/21/20 09:46 Radiology Reviewed by me: Yes (All radiological investigations reviewed) Hospitalist ROS - Review of Systems ROS unobtainable: due to mental status - Medication Medications: Active Medications Generic Name Dose Route Start Last Admin Trade Name Freq PRN Reason Stop Dose Admin Acetaminophen 650 mg 06/17/20 23:10 06/20/20 20:04 Tylenol PO 650 mg Q4H PRN Administration Headache/Fever/Mild Pain (1-3) Acidophilus 1 tab 06/21/20 09:00 06/21/20 10:06 Floranex PO 1 tab DAILY JOSE Administration Ascorbic Acid 500 mg 06/21/20 09:00 06/21/20 10:06 Vitamin C PO 500 mg BID JOSE Administration Cyanocobalamin 1,000 mcg 06/21/20 09:00 06/21/20 10:06 Vitamin B-12 PO 1,000 mcg DAILY JOSE Administration Docusate Sodium 100 mg 06/21/20 09:00 06/21/20 10:07 Colace PO 100 mg BID JOSE Administration Famotidine 20 mg 06/18/20 09:00 06/21/20 07:50 Pepcid PO 20 mg BID JOSE Administration Ferrous Sulfate 325 mg 06/21/20 09:00 06/21/20 10:07 Feosol PO 325 mg BID JOSE Administration Folic Acid 1 mg 06/21/20 09:00 06/21/20 10:07 Folvite PO 1 mg DAILY JOSE Administration Guaifenesin/Dextromethorphan 15 ml 06/17/20 23:10 06/20/20 20:05 Robitussin Dm PO 15 ml Q4H PRN Administration Cough Ampicillin Sodium/Sulbactam 100 mls @ 200 mls/hr 06/17/20 23:59 06/21/20 11: 37 Sodium 3 gm/ Sodium Chloride IVPB 100 mls Q6HR JOSE Administration Dextrose/Sodium Chloride 1,000 mls @ 50 mls/hr 06/20/20 10:00 06/21/20 06:25 D5 1/2 Ns IV Not Given .Q20H JOSE Iron/Minerals/Multivitamins 1 tab 06/21/20 09:00 06/21/20 10:06 Theragran M PO 1 tab DAILY JOSE Administration Levetiracetam 500 mg 06/18/20 09:00 06/21/20 07:50 Keppra PO 500 mg BID JOSE Administration Magnesium Oxide 400 mg 06/21/20 09:00 06/21/20 10:06 Magnesium Oxide PO 400 mg BID JOSE Administration Metoprolol Tartrate 50 mg 06/21/20 09:00 06/21/20 10:06 Lopressor PO 50 mg BID JOSE Administration Misoprostol 200 mcg 06/21/20 09:00 06/21/20 10:24 Cytotec PO 200 mcg TID JOSE Administration Mometasone Furoate 200 mcg 06/18/20 18:30 06/21/20 06:25 Asmanex Hfa 100 Mcg INH Not Given BID-RT JOSE Sodium Chloride 10 ml 06/18/20 09:00 06/21/20 07:51 Flush - Normal Saline IVF 10 ml Q12HR JOSE Administration Zinc Sulfate 220 mg 06/21/20 09:00 06/21/20 10:24 Zinc Sulfate PO 220 mg DAILY JOSE Administration - Exam General Appearance: NAD, ill appearing General - other findings: Cachectic Eye: PERRL, anicteric sclera ENT: normocephalic atraumatic, no oropharyngeal lesions Neck: supple, symmetric, no JVD, no thyromegaly Heart: RRR, no murmur, no gallops, no rubs Respiratory: no wheezes, no rales, no ronchi Gastrointestinal: soft, non-tender, non-distended Extremities - other findings: Dry gangrene right leg below knee Skin: normal turgor, no lesions Neurological: no new deficit Musculoskeletal: normal tone Psychiatric: normal affect Hosp A/P - Plan old records reviewed/req, 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, 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 Dry gangrene right lower extremity, below knee Dehydration Metabolic acidosis Hypoalbuminemia due to protein calorie malnutrition Seizure disorder Dementia Macrocytic anemia and folate deficiency Severe protein calorie malnutrition Rheumatoid arthritis Nonambulatory status Hypertension Gastroesophageal reflux disease COPD Peripheral arterial disease Plan Patient was given 2 units of blood transfusion and after that her hemoglobin improved to 10.9 Patient has macrocytic anemia and she has folate deficiency and thus I will start folic acid and vitamin B12 therapy Continue gentle IV fluid for hydration Continue vancomycin and ampicillin with sulbactam Family member wanted to keep her full code but they do not want amputation or any surgical procedure or PEG tube Medications reviewed and continue provide symptomatic care Prognosis is very poor
[2020-06-21] MEDS: Donepezil HCl 10 MG TAB PO SCH (21:16)
[2020-06-21 23:30] LABS: Vancomycin, Random 18.5 ug/mL (See Comment)
[2020-06-22] MEDS ORDERED: Vancomycin 1 GM in Premix Bag 1 BAG IVPB SCH (00:15)
[2020-06-22] MEDS: Ampicillin/Sulbactam 3 GM in Sodium Chloride 0.9% 100 ML IVPB SCH ×3 (05:30→17:06)
[2020-06-22] MEDS: Mometasone 100 MCG/PUFF (1 INHALER) INH SCH ×2 (05:31→18:03)
[2020-06-22 06:16] LABS: ALT (SGPT) Less than 7 U/L (8-55); AST (SGOT) 9 U/L (5-34); Albumin 2.3 g/dL (3.4-4.8); Alkaline Phosphatase 101 U/L (40-110); Anion Gap 13 mmol/L (10-20); BUN (Urea Nitrogen) 13 mg/dL (9.8-20.1); Bilirubin, Total 0.2 mg/dL (0.2-1.2); Calc. Creatinine Clearance 45 mL/min (70-130); Calcium 7.9 mg/dL (7.8-10.44); Carbon Dioxide 21 mmol/L (23-31); Chloride 109 mmol/L (98-107); Estimated GFR-MDRD Greater than 90; Globulin 3.9 g/dL (2.4-3.5); Glucose 83 mg/dL (83-110); Potassium 3.2 mmol/L (3.5-5.1); Protein, Total 6.2 g/dL (6.0-8.3); Sodium 140 mmol/L (136-145)
[2020-06-22 06:34] LABS: Band 4 % (5-11); Eosinophils 1 % (0-10); Hemoglobin 11.9 g/dL (12.0-16.0); Lymphocytes 14 % (21-51); MDiff Complete? YES; Mean Corpuscular HGB CONC 31.6 g/dL (32.0-36.0); Mean Corpuscular Volume 95.1 fL (78.0-98.0); Mean Platelet Volume 7.6 fL (7.4-10.4); Monocytes 4 % (0-10); Neutrophil 77 % (42-75); Platelet Count 338 thou/uL (130-400); RBC Distribution Width 15.5 % (11.5-14.5); Red Blood Cell (RBC) Count 3.96 mill/uL (4.20-5.40); White Blood Cell (WBC) Count 13.4 thou/uL (4.8-10.8)
[2020-06-22] MEDS: Metoprolol Tartrate 50 MG TAB PO SCH ×2 (07:34→20:51)
[2020-06-22] MEDS: Misoprostol 200 MCG TAB PO SCH ×3 (07:35→20:52)
[2020-06-22] MEDS: Multivitamin W/ Minerals 1 TAB PO SCH (07:35)
[2020-06-22] MEDS: Docusate 100 MG CAP PO SCH ×2 (07:35→20:52)
[2020-06-22] MEDS: Zinc Sulfate 220 MG CAP PO SCH (07:35)
[2020-06-22] MEDS: Famotidine 20 MG TAB PO SCH ×2 (07:35→20:52)
[2020-06-22] MEDS: Lactinex Tablet PO SCH (07:35)
[2020-06-22] MEDS: Magnesium Oxide 400 MG TAB PO SCH ×2 (07:36→20:51)
[2020-06-22] MEDS: Ferrous Sulfate 325 MG TAB PO SCH ×2 (07:36→20:51)
[2020-06-22] MEDS: Ascorbic Acid 500 mg Chewable Tablet PO SCH ×2 (07:36→20:50)
[2020-06-22] MEDS: levETIRAcetam 500 MG TAB PO SCH ×2 (07:36→20:51)
[2020-06-22] MEDS: Leflunomide 10 mg Tablet PO SCH (07:36)
[2020-06-22] MEDS: Folic Acid 1 MG TAB PO SCH (07:37)
[2020-06-22] MEDS: Cyanocobalamin (Vitamin B-12) 1,000 MCG TAB PO SCH (07:37)
[2020-06-22] MEDS ORDERED: Potassium Chloride 20 MEQ TAB PO SCH (07:45)
[2020-06-22] MEDS: Heparin 5,000 UNITS/ML VIAL SC SCH ×2 (08:12→20:54)
--- NOTE | 2020-06-22 11:26 | PDOC.HOSPP ---
- Subjective Encounter Date: 06/22/20 Encounter Time: 08:00 Subjective: Patient seen and examined bedside today, she is on room air, her right leg is necrotic below-knee, - Objective Vital Signs & Weight: Vital Signs (12 hours) Temp Pulse Resp BP BP Pulse Ox 06/22/20 08:00 94 L 06/22/20 07:45 97.9 F 74 18 143/89 H 94 L 06/22/20 00:00 98 F 72 20 146/75 H 96 Weight Admit Weight 85 lb 12.157 oz Weight 85 lb 12.157 oz I&O: 06/21/20 06/22/20 06/23/20 06:59 06:59 06:59 Intake Total 1230 480 120 Output Total 400 Balance 830 480 120 Result Diagrams: 06/22/20 05:48 06/22/20 05:48 Hospitalist ROS - Review of Systems ROS unobtainable: due to mental status - Medication Medications: Active Medications Generic Name Dose Route Start Last Admin Trade Name Freq PRN Reason Stop Dose Admin Acetaminophen 650 mg 06/17/20 23:10 06/20/20 20:04 Tylenol PO 650 mg Q4H PRN Administration Headache/Fever/Mild Pain (1-3) Acidophilus 1 tab 06/21/20 09:00 06/22/20 07:35 Floranex PO 1 tab DAILY JOSE Administration Ascorbic Acid 500 mg 06/21/20 09:00 06/22/20 07:36 Vitamin C PO 500 mg BID JOSE Administration Cyanocobalamin 1,000 mcg 06/21/20 09:00 06/22/20 07:37 Vitamin B-12 PO 1,000 mcg DAILY JOSE Administration Docusate Sodium 100 mg 06/21/20 09:00 06/22/20 07:35 Colace PO 100 mg BID JOSE Administration Donepezil HCl 10 mg 06/21/20 21:00 06/21/20 21:16 Aricept PO 10 mg HS JOSE Administration Famotidine 20 mg 06/18/20 09:00 06/22/20 07:35 Pepcid PO 20 mg BID JOSE Administration Ferrous Sulfate 325 mg 06/21/20 09:00 06/22/20 07:36 Feosol PO 325 mg BID JOSE Administration Folic Acid 1 mg 06/21/20 09:00 06/22/20 07:37 Folvite PO 1 mg DAILY JOSE Administration Guaifenesin/Dextromethorphan 15 ml 06/17/20 23:10 06/20/20 20:05 Robitussin Dm PO 15 ml Q4H PRN Administration Cough Heparin Sodium (Porcine) 5,000 units 06/22/20 09:00 06/22/20 08:12 Heparin SC 5,000 units BID JOSE Administration Ampicillin Sodium/Sulbactam 100 mls @ 200 mls/hr 06/17/20 23:59 06/22/20 05: 30 Sodium 3 gm/ Sodium Chloride IVPB 100 mls Q6HR JOSE Administration Dextrose/Sodium Chloride 1,000 mls @ 50 mls/hr 06/20/20 10:00 06/21/20 16:00 D5 1/2 Ns IV 1,000 mls .Q20H JOSE Administration Iron/Minerals/Multivitamins 1 tab 06/21/20 09:00 06/22/20 07:35 Theragran M PO 1 tab DAILY JOSE Administration Leflunomide 20 mg 06/22/20 09:00 06/22/20 07:36 Arava PO 20 mg DAILY JOSE Administration Levetiracetam 500 mg 06/18/20 09:00 06/22/20 07:36 Keppra PO 500 mg BID JOSE Administration Magnesium Oxide 400 mg 06/21/20 09:00 06/22/20 07:36 Magnesium Oxide PO 400 mg BID JOSE Administration Metoprolol Tartrate 50 mg 06/21/20 09:00 06/22/20 07:34 Lopressor PO 50 mg BID JOSE Administration Misoprostol 200 mcg 06/21/20 09:00 06/22/20 07:35 Cytotec PO 200 mcg TID JOSE Administration Mometasone Furoate 200 mcg 06/18/20 18:30 06/22/20 05:31 Asmanex Hfa 100 Mcg INH Not Given BID-RT JOSE Sodium Chloride 10 ml 06/18/20 09:00 06/22/20 07:37 Flush - Normal Saline IVF 10 ml Q12HR JOSE Administration Zinc Sulfate 220 mg 06/21/20 09:00 06/22/20 07:35 Zinc Sulfate PO 220 mg DAILY JOSE Administration - Exam General Appearance: NAD, ill appearing Eye: PERRL, anicteric sclera ENT: normocephalic atraumatic, no oropharyngeal lesions Neck: supple, symmetric, no JVD Heart: RRR, no murmur, no gallops Respiratory: CTAB, no wheezes, no rales Gastrointestinal: soft, non-tender, non-distended Extremities: no clubbing Extremities - other findings: Foul-smelling right leg necrotic below-knee Skin: normal turgor, no lesions Neurological: no focal deficits Musculoskeletal: normal tone, generalized weakness, diffuse muscle atrophy Psychiatric: normal affect, normal behavior Hosp A/P - Plan old records reviewed/req, 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, 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, 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 w/ heparin Dry gangrene right lower extremity, below knee Dehydration Metabolic acidosis Hypoalbuminemia due to protein calorie malnutrition Seizure disorder Dementia Macrocytic anemia and folate deficiency Severe protein calorie malnutrition Rheumatoid arthritis Nonambulatory status Hypertension Gastroesophageal reflux disease COPD Peripheral arterial disease Hypokalemia Plan Continue Unasyn with vancomycin We will add heparin 5000 units subcu twice daily for DVT prophylaxis Medication reviewed and continue provide symptomatic and supportive care Replace potassium today This patient prognosis is extremely poor, without intervention of her right lower extremities he is continuously high risk for recurrent admission, unfortunately family does not have any realistic goal, they do not want amputation and they do not want any kind of surgical procedure including PEG tube and even after that they wanted to keep her as a full code
[2020-06-22] MEDS: Donepezil HCl 10 MG TAB PO SCH (20:52)
[2020-06-22] MEDS: Dextrose 5 %-0.45 % NaCl 1,000 ML IV SCH (21:13)
[2020-06-22 23:23] LABS: Vancomycin, Random 22.8 ug/mL (See Comment)
[2020-06-23] MEDS: Ampicillin/Sulbactam 3 GM in Sodium Chloride 0.9% 100 ML IVPB SCH ×4 (00:06→16:57)
[2020-06-23] MEDS: Mometasone 100 MCG/PUFF (1 INHALER) INH SCH ×2 (05:19→18:39)
[2020-06-23] MEDS: levETIRAcetam 500 MG TAB PO SCH ×2 (09:22→21:41)
[2020-06-23] MEDS: Misoprostol 200 MCG TAB PO SCH ×3 (09:22→21:41)
[2020-06-23] MEDS: Zinc Sulfate 220 MG CAP PO SCH (09:22)
[2020-06-23] MEDS: Folic Acid 1 MG TAB PO SCH (09:22)
[2020-06-23] MEDS: Magnesium Oxide 400 MG TAB PO SCH ×2 (09:22→21:42)
[2020-06-23] MEDS: Cyanocobalamin (Vitamin B-12) 1,000 MCG TAB PO SCH (09:22)
[2020-06-23] MEDS: Lactinex Tablet PO SCH (09:23)
[2020-06-23] MEDS: Ascorbic Acid 500 mg Chewable Tablet PO SCH ×2 (09:23→21:41)
[2020-06-23] MEDS: Leflunomide 10 mg Tablet PO SCH (09:23)
[2020-06-23] MEDS: Docusate 100 MG CAP PO SCH ×2 (09:23→21:41)
[2020-06-23] MEDS: Ferrous Sulfate 325 MG TAB PO SCH ×2 (09:23→21:42)
[2020-06-23] MEDS: Multivitamin W/ Minerals 1 TAB PO SCH (09:23)
[2020-06-23] MEDS: Famotidine 20 MG TAB PO SCH ×2 (09:23→21:41)
[2020-06-23] MEDS: Heparin 5,000 UNITS/ML VIAL SC SCH ×2 (09:23→21:42)
[2020-06-23] MEDS: Metoprolol Tartrate 50 MG TAB PO SCH ×2 (09:23→21:41)
--- NOTE | 2020-06-23 10:41 | PDOC.HOSPP ---
- Subjective Encounter Date: 06/23/20 Encounter Time: 07:45 Subjective: Patient seen and examined bedside today, no overnight event, patient is cachectic and she is not participating with any review of system, she is awake but not following any appropriate command - Objective Vital Signs & Weight: Vital Signs (12 hours) Pulse 06/23/20 00:00 78 Weight Admit Weight 85 lb 12.157 oz Weight 85 lb 12.157 oz I&O: 06/22/20 06/23/20 06/24/20 06:59 06:59 06:59 Intake Total 480 840 Output Total 350 Balance 480 490 Result Diagrams: 06/22/20 05:48 06/22/20 05:48 Hospitalist ROS - Review of Systems ROS unobtainable: due to mental status Other: All review of systems are reviewed with the patient but not reliable due to level of cognitive status - Medication Medications: Active Medications Generic Name Dose Route Start Last Admin Trade Name Freq PRN Reason Stop Dose Admin Acetaminophen 650 mg 06/17/20 23:10 06/20/20 20:04 Tylenol PO 650 mg Q4H PRN Administration Headache/Fever/Mild Pain (1-3) Acidophilus 1 tab 06/21/20 09:00 06/23/20 09:23 Floranex PO 1 tab DAILY JOSE Administration Ascorbic Acid 500 mg 06/21/20 09:00 06/23/20 09:23 Vitamin C PO 500 mg BID JOSE Administration Cyanocobalamin 1,000 mcg 06/21/20 09:00 06/23/20 09:22 Vitamin B-12 PO 1,000 mcg DAILY JOSE Administration Docusate Sodium 100 mg 06/21/20 09:00 06/23/20 09:23 Colace PO 100 mg BID JOSE Administration Donepezil HCl 10 mg 06/21/20 21:00 06/22/20 20:52 Aricept PO 10 mg HS JOSE Administration Famotidine 20 mg 06/18/20 09:00 06/23/20 09:23 Pepcid PO 20 mg BID JOSE Administration Ferrous Sulfate 325 mg 06/21/20 09:00 06/23/20 09:23 Feosol PO 325 mg BID JOSE Administration Folic Acid 1 mg 06/21/20 09:00 06/23/20 09:22 Folvite PO 1 mg DAILY JOSE Administration Guaifenesin/Dextromethorphan 15 ml 06/17/20 23:10 06/20/20 20:05 Robitussin Dm PO 15 ml Q4H PRN Administration Cough Heparin Sodium (Porcine) 5,000 units 06/22/20 09:00 06/23/20 09:23 Heparin SC 5,000 units BID JOSE Administration Ampicillin Sodium/Sulbactam 100 mls @ 200 mls/hr 06/17/20 23:59 06/23/20 05: 05 Sodium 3 gm/ Sodium Chloride IVPB 100 mls Q6HR JOSE Administration Dextrose/Sodium Chloride 1,000 mls @ 50 mls/hr 06/20/20 10:00 06/22/20 21:13 D5 1/2 Ns IV 1,000 mls .Q20H JOSE Administration Iron/Minerals/Multivitamins 1 tab 06/21/20 09:00 06/23/20 09:23 Theragran M PO 1 tab DAILY JOSE Administration Leflunomide 20 mg 06/22/20 09:00 06/23/20 09:23 Arava PO 20 mg DAILY JOSE Administration Levetiracetam 500 mg 06/18/20 09:00 06/23/20 09:22 Keppra PO 500 mg BID JOSE Administration Magnesium Oxide 400 mg 06/21/20 09:00 06/23/20 09:22 Magnesium Oxide PO 400 mg BID JOSE Administration Metoprolol Tartrate 50 mg 06/21/20 09:00 06/23/20 09:23 Lopressor PO 50 mg BID JOSE Administration Misoprostol 200 mcg 06/21/20 09:00 06/23/20 09:22 Cytotec PO 200 mcg TID JOSE Administration Mometasone Furoate 200 mcg 06/18/20 18:30 06/23/20 05:19 Asmanex Hfa 100 Mcg INH Not Given BID-RT JOSE Sodium Chloride 10 ml 06/18/20 09:00 06/23/20 09:24 Flush - Normal Saline IVF 10 ml Q12HR JOSE Administration Zinc Sulfate 220 mg 06/21/20 09:00 06/23/20 09:22 Zinc Sulfate PO 220 mg DAILY JOSE Administration - Exam General Appearance: NAD, ill appearing General - other findings: Cachectic Eye: PERRL, anicteric sclera ENT: normocephalic atraumatic, no oropharyngeal lesions Neck: supple, symmetric, no JVD, no thyromegaly Heart: RRR, no murmur, no gallops, no rubs Respiratory: CTAB, no wheezes, no rales, no ronchi Gastrointestinal: soft, non-tender, non-distended, normal bowel sounds Extremities - other findings: Right leg below-knee dry gangrene Skin: normal turgor, no lesions Neurological: no new deficit Musculoskeletal: normal tone, normal strength Psychiatric: normal affect, normal behavior Hosp A/P - Plan old records reviewed/req, 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, 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 Dry gangrene right lower extremity, below knee Dehydration Metabolic acidosis Hypoalbuminemia due to protein calorie malnutrition Seizure disorder Dementia Macrocytic anemia and folate deficiency Severe protein calorie malnutrition Rheumatoid arthritis Nonambulatory status Hypertension Gastroesophageal reflux disease COPD Peripheral arterial disease Hypokalemia Plan At this point continue to provide supportive care, Palliative care team on the board and they will discuss with the family member about goal of care, Because of multiple comorbidities, even if we discharge her to nursing home home she will be bounced back very soon Continue provide nutritional support Prognosis poor Medications reviewed
[2020-06-23 12:18] LABS: Hemoglobin 12.6 g/dL (12.0-16.0); Mean Corpuscular Hemoglobin 30.7 pg (27.0-31.0); Mean Corpuscular Volume 98.9 fL (78.0-98.0); Mean Platelet Volume 7.8 fL (7.4-10.4); Platelet Count 404 thou/uL (130-400); RBC Distribution Width 15.6 % (11.5-14.5); White Blood Cell (WBC) Count 13.3 thou/uL (4.8-10.8)
[2020-06-23 12:22] LABS: Vancomycin, Random 17.1 ug/mL (See Comment)
[2020-06-23 12:25] LABS: Band 2 % (5-11); Lymphocytes 11 % (21-51); MDiff Complete? YES; Monocytes 2 % (0-10); Neutrophil 85 % (42-75); Platelet Morphology Comment Appears Adequate; Polychromasia SLIGHT = 2-3 cells (100X) (0-2/hpf)
[2020-06-23] MEDS ORDERED: Vancomycin 1 GM in Premix Bag 1 BAG IVPB SCH (12:30)
[2020-06-23 12:32] LABS: Anion Gap 15 mmol/L (10-20); BUN (Urea Nitrogen) 11 mg/dL (9.8-20.1); Calc. Creatinine Clearance 43 mL/min (70-130); Calcium 8.2 mg/dL (7.8-10.44); Carbon Dioxide 19 mmol/L (23-31); Chloride 110 mmol/L (98-107); Estimated GFR-MDRD Greater than 90; Glucose 82 mg/dL (83-110); Potassium 4.1 mmol/L (3.5-5.1); Sodium 140 mmol/L (136-145)
--- NOTE | 2020-06-23 15:17 | PDOC.PALFU ---
Palliative Care Follow-up Note Attempted to call patient Daughter Ruth to revisit Goal of care, attempt to arrange a family meeting via phone conference to discuss Ms Krishna current health status. No answer, left message. Had communicated in previous conversation with Ruth that we would need to revisit Goal of care. Will continue to attempt to connect with Ruth.
[2020-06-23] MEDS: Dextrose 5 %-0.45 % NaCl 1,000 ML IV SCH (16:59)
[2020-06-23] MEDS: HYDROcodone/Acetaminophen 5/325 mg Tablet PO PRN (17:13)
[2020-06-23] MEDS: Donepezil HCl 10 MG TAB PO SCH (21:41)
[2020-06-24] MEDS: Ampicillin/Sulbactam 3 GM in Sodium Chloride 0.9% 100 ML IVPB SCH ×4 (00:15→16:52)
[2020-06-24] MEDS: Dextrose 5 %-0.45 % NaCl 1,000 ML IV SCH ×2 (01:53→16:52)
[2020-06-24 06:04] LABS: Mean Corpuscular HGB CONC 31.1 g/dL (32.0-36.0); Mean Corpuscular Volume 96.4 fL (78.0-98.0); Mean Platelet Volume 7.8 fL (7.4-10.4); Platelet Count 404 thou/uL (130-400); RBC Distribution Width 15.1 % (11.5-14.5); Red Blood Cell (RBC) Count 3.67 mill/uL (4.20-5.40); White Blood Cell (WBC) Count 12.7 thou/uL (4.8-10.8)
[2020-06-24 06:26] LABS: Anion Gap 15 mmol/L (10-20); BUN (Urea Nitrogen) 12 mg/dL (9.8-20.1); Calc. Creatinine Clearance 46 mL/min (70-130); Carbon Dioxide 20 mmol/L (23-31); Chloride 108 mmol/L (98-107); Estimated GFR-MDRD Greater than 90; Glucose 78 mg/dL (83-110); Potassium 3.3 mmol/L (3.5-5.1); Sodium 140 mmol/L (136-145)
[2020-06-24] MEDS: Mometasone 100 MCG/PUFF (1 INHALER) INH SCH ×2 (06:30→18:58)
[2020-06-24 07:26] LABS: Band 5 % (5-11); Eosinophils 3 % (0-10); Hypochromia SLIGHT = 6-15 cells (100X) (0-5/hpf); Lymphocytes 6 % (21-51); MDiff Complete? YES; Monocytes 2 % (0-10); Neutrophil 84 % (42-75); Platelet Morphology Comment Appears Increased; Polychromasia SLIGHT = 2-3 cells (100X) (0-2/hpf)
[2020-06-24] MEDS: Cyanocobalamin (Vitamin B-12) 1,000 MCG TAB PO SCH ×2 (08:57→09:30)
[2020-06-24] MEDS: Leflunomide 10 mg Tablet PO SCH ×2 (08:57→09:30)
[2020-06-24] MEDS: Famotidine 20 MG TAB PO SCH ×3 (08:57→21:00)
[2020-06-24] MEDS: Metoprolol Tartrate 50 MG TAB PO SCH ×3 (08:57→21:02)
[2020-06-24] MEDS: Lactinex Tablet PO SCH ×2 (08:57→09:30)
[2020-06-24] MEDS: Ferrous Sulfate 325 MG TAB PO SCH ×3 (08:57→21:00)
[2020-06-24] MEDS: levETIRAcetam 500 MG TAB PO SCH ×3 (08:57→21:01)
[2020-06-24] MEDS: Potassium Chloride 20 MEQ TAB PO SCH ×2 (08:57→09:30)
[2020-06-24] MEDS: Multivitamin W/ Minerals 1 TAB PO SCH ×2 (08:57→09:30)
[2020-06-24] MEDS: Docusate 100 MG CAP PO SCH ×3 (08:57→21:00)
[2020-06-24] MEDS: Magnesium Oxide 400 MG TAB PO SCH ×3 (08:57→21:01)
[2020-06-24] MEDS: Ascorbic Acid 500 mg Chewable Tablet PO SCH ×3 (08:58→21:00)
[2020-06-24] MEDS: Heparin 5,000 UNITS/ML VIAL SC SCH ×2 (08:58→21:01)
[2020-06-24] MEDS: Folic Acid 1 MG TAB PO SCH ×2 (08:58→09:30)
[2020-06-24] MEDS: Misoprostol 200 MCG TAB PO SCH ×4 (08:58→21:01)
[2020-06-24] MEDS: Zinc Sulfate 220 MG CAP PO SCH ×2 (08:58→09:30)
--- NOTE | 2020-06-24 10:02 | PDOC.HOSPP ---
- Subjective Encounter Date: 06/24/20 Encounter Time: 08:10 Subjective: Patient seen and examined bedside today, no overnight event, yesterday patient had reduced urine output so IV fluid was started, patient has very limited p.o. intake - Objective Vital Signs & Weight: Weight Admit Weight 85 lb 12.157 oz Weight 85 lb 12.157 oz I&O: 06/23/20 06/24/20 06/25/20 06:59 06:59 06:59 Intake Total 840 1930 Output Total 350 300 Balance 490 1630 Result Diagrams: 06/24/20 05:40 06/24/20 05:40 Hospitalist ROS - Review of Systems ROS unobtainable: due to mental status Other: Review of system unable to review from patient because of cognitive dysfunction - Medication Medications: Active Medications Generic Name Dose Route Start Last Admin Trade Name Freq PRN Reason Stop Dose Admin Acetaminophen 650 mg 06/17/20 23:10 06/20/20 20:04 Tylenol PO 650 mg Q4H PRN Administration Headache/Fever/Mild Pain (1-3) Hydrocodone Bitart/Acetaminophen 1 tab 06/17/20 23:10 06/23/20 17:13 [place]umseh 5/325 PO 1 tab Q4H PRN Administration Moderate Pain (4-6) Acidophilus 1 tab 06/21/20 09:00 06/24/20 08:57 Floranex PO 1 tab DAILY JOSE Administration Ascorbic Acid 500 mg 06/21/20 09:00 06/24/20 08:58 Vitamin C PO 500 mg BID JOSE Administration Cyanocobalamin 1,000 mcg 06/21/20 09:00 06/24/20 08:57 Vitamin B-12 PO 1,000 mcg DAILY JOSE Administration Docusate Sodium 100 mg 06/21/20 09:00 06/24/20 08:57 Colace PO 100 mg BID JOSE Administration Donepezil HCl 10 mg 06/21/20 21:00 06/23/20 21:41 Aricept PO 10 mg HS JOSE Administration Famotidine 20 mg 06/18/20 09:00 06/24/20 08:57 Pepcid PO 20 mg BID JOSE Administration Ferrous Sulfate 325 mg 06/21/20 09:00 06/24/20 08:57 Feosol PO 325 mg BID JOSE Administration Folic Acid 1 mg 06/21/20 09:00 06/24/20 08:58 Folvite PO 1 mg DAILY JOSE Administration Guaifenesin/Dextromethorphan 15 ml 06/17/20 23:10 06/20/20 20:05 Robitussin Dm PO 15 ml Q4H PRN Administration Cough Heparin Sodium (Porcine) 5,000 units 06/22/20 09:00 06/24/20 08:58 Heparin SC 5,000 units BID JOSE Administration Ampicillin Sodium/Sulbactam 100 mls @ 200 mls/hr 06/17/20 23:59 06/24/20 06: 30 Sodium 3 gm/ Sodium Chloride IVPB 100 mls Q6HR JOSE Administration Dextrose/Sodium Chloride 1,000 mls @ 65 mls/hr 06/24/20 01:45 06/24/20 01:53 D5 1/2 Ns IV Not Given .[id number] [facility] Iron/Minerals/Multivitamins 1 tab 06/21/20 09:00 06/24/20 08:57 Theragran M PO 1 tab DAILY JOSE Administration Leflunomide 20 mg 06/22/20 09:00 06/24/20 08:57 Arava PO 20 mg DAILY [facility] Administration Levetiracetam 500 mg 06/18/20 09:00 06/24/20 08:57 Keppra PO 500 mg BID JOSE Administration Magnesium Oxide 400 mg 06/21/20 09:00 06/24/20 08:57 Magnesium Oxide PO 400 mg BID JOSE Administration Metoprolol Tartrate 50 mg 06/21/20 09:00 06/24/20 08:57 Lopressor PO 50 mg BID JOSE Administration Misoprostol 200 mcg 06/21/20 09:00 06/24/20 08:58 Cytotec PO 200 mcg TID JOSE Administration Mometasone Furoate 200 mcg 06/18/20 18:30 06/24/20 06:30 Asmanex Hfa 100 Mcg INH Not Given BID-RT [facility] Sodium Chloride 10 ml 06/18/20 09:00 06/24/20 08:58 Flush - Normal Saline IVF Not Given Q12HR [facility] Zinc Sulfate 220 mg 06/21/20 09:00 06/24/20 08:58 Zinc Sulfate PO 220 mg DAILY JOSE Administration - Exam General Appearance: NAD, ill appearing General - other findings: Cachectic Eye: PERRL, anicteric sclera ENT: normocephalic atraumatic, no oropharyngeal lesions Neck: supple, symmetric, no JVD, no thyromegaly Heart: RRR, no murmur, no gallops, no rubs Respiratory: no wheezes, no rales, no ronchi Gastrointestinal: soft, non-tender, non-distended, normal bowel sounds Extremities - other findings: Right below-knee leg is gangrene Skin: normal turgor Neurological: no focal deficits Musculoskeletal: generalized weakness, diffuse muscle atrophy Psychiatric: normal affect, normal behavior Hosp A/P - Plan old records reviewed/req, 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, social insurance adviser Consults: Palliative Care Dry gangrene right lower extremity, below knee Dehydration Metabolic acidosis Hypoalbuminemia due to protein calorie malnutrition Seizure disorder Dementia Macrocytic anemia and folate deficiency Severe protein calorie malnutrition Rheumatoid arthritis Nonambulatory status Hypertension Gastroesophageal reflux disease COPD Peripheral arterial disease Hypokalemia Plan Today we will discontinue vancomycin given negative culture Continue Unasyn for now Continue gentle IV fluid Continue nutritional support This patient is continuously high risk for recurrent admission Unfortunately patient's family member has unrealistic expectation, Palliative care on the case, Until all these issues has been resolved patient would not be safe for discharge otherwise will be bounced back very quick
[2020-06-24] MEDS: Potassium Chloride 10 MEQ/100 ML PREMIX BAG IVPB SCH ×2 (12:15→12:30)
[2020-06-24] MEDS ORDERED: Potassium Chloride 20 MEQ TAB PO SCH (17:00)
[2020-06-24] MEDS: HYDROcodone/Acetaminophen 5/325 mg Tablet PO PRN (17:20)
[2020-06-24] MEDS: Donepezil HCl 10 MG TAB PO SCH (21:00)
[2020-06-24] MEDS: Amoxicillin/Potassium Clav 500 MG TAB PO SCH (21:00)
[2020-06-25] MEDS: Mometasone 100 MCG/PUFF (1 INHALER) INH SCH (06:33)
[2020-06-25] MEDS: Cyanocobalamin (Vitamin B-12) 1,000 MCG TAB PO SCH (09:48)
[2020-06-25] MEDS: Multivitamin W/ Minerals 1 TAB PO SCH (09:48)
[2020-06-25] MEDS: Lactinex Tablet PO SCH (09:48)
[2020-06-25] MEDS: Famotidine 20 MG TAB PO SCH (09:48)
[2020-06-25] MEDS: levETIRAcetam 500 MG TAB PO SCH (09:48)
[2020-06-25] MEDS: Ascorbic Acid 500 mg Chewable Tablet PO SCH (09:48)
[2020-06-25] MEDS: Docusate 100 MG CAP PO SCH (09:48)
[2020-06-25] MEDS: Metoprolol Tartrate 50 MG TAB PO SCH (09:48)
[2020-06-25] MEDS: Ferrous Sulfate 325 MG TAB PO SCH (09:48)
[2020-06-25] MEDS: Leflunomide 10 mg Tablet PO SCH (09:48)
[2020-06-25] MEDS: Magnesium Oxide 400 MG TAB PO SCH (09:48)
[2020-06-25] MEDS: Folic Acid 1 MG TAB PO SCH (09:48)
[2020-06-25] MEDS: Zinc Sulfate 220 MG CAP PO SCH (09:49)
[2020-06-25] MEDS: Heparin 5,000 UNITS/ML VIAL SC SCH (09:49)
[2020-06-25] MEDS: Misoprostol 200 MCG TAB PO SCH ×2 (09:49→14:07)
[2020-06-25] MEDS: Amoxicillin/Potassium Clav 500 MG TAB PO SCH (09:49)
[2020-06-25 13:58] VITALS: BP 149/84; TEMP 97.9
--- NOTE | 2020-06-26 02:21 | DIS ---
DATE OF ADMISSION: 06/17/2020 DATE OF DISCHARGE: 06/25/2020 REASON FOR HOSPITALIZATION: Altered mental status, failure to thrive, and leg infection. SIGNIFICANT FINDINGS: Please see full history and physical from Dr. Murray from 06/17/2020; consultation notes from General Surgery, Dr. Louis; consultation notes from Cardiology, Dr. Brooks. Please see the all progress notes and laboratory data for full details. PROCEDURES PERFORMED AND TREATMENTS RENDERED: Ms. Fuentes presented to [facility] on 06/17/2020 with altered mental status and worsening leg wound. The patient is a chronic resident of [facility] and was found on the ground at about 1830 for an unknown duration. Normally, she is alert and oriented to self only. On admission, she was alert and oriented x0. The patient has a longstanding right lower extremity dry gangrene leg wound. She has been evaluated by Orthopedic Surgery and Cardiology at [facility] in the past for this. The patient also has COPD, dementia, history of seizures on Keppra, rheumatoid arthritis, hypertension, anemia, GERD, and chronic debility. Efforts were made by General Surgery, Dr. Louis to help this patient, please see full consultation notes and progress notes for details. Due to the patient's severe illness, there were [address] Louis was recommending; one would be considering less aggressive measures with do not resuscitate and more comfort care type treatment where we know that she will not be able to be cured, and two would be full medical therapy in which a feeding tube, and a below-knee amputation of the right gangrenous leg would be required. Unfortunately, despite numerous attempts with Dr. Louis and family, the family have selected to have neither of these decisions and they would like to have antibiotics alone for this patient's leg. The patient's family understands the risks of not undergoing surgery include worsening of sepsis, worsening of gangrene, and even . They understand these risks and refused any surgical intervention. The patient did have a good response to medical therapy. The patient was placed on antibiotics and this seemed to control her symptoms. The patient was afebrile throughout her hospitalization. The patient's white blood cell count was at the upper limit of normal at 12.7 on 06/24/2020. The patient's renal function was normal. The patient's oral intake was poor and this was why a feeding tube was recommended, again the family are not interested in feeding tube or any other surgical interventions. The patient's family was explicitly informed that not proceeding with the feeding tube would result in worsening of malnutrition, worsening of wound healing, worsening of mentation, and even . Due to the fact that the patient has been afebrile and responding to antibiotic therapy and they have declined any future surgical intervention, she was recommended safe [facility]. Again, this gangrene has been longstanding over the past 1 year and family are not concerned with this. The patient's family was explicitly informed that in the near future, she will likely have complications and will return to acute care hospital. Efforts were made with Palliative Care to help change this patient's status to do not resuscitate and do not intubate so that she could avoid any unnecessary pain and suffering towards the end of her life. Unfortunately, the patient's family do not want any of these measures and refused to change categorization status and they would like to have her remain a full code. We honored the patient's family's wishes and proceeded as they requested. [facility] and recommended to complete a full course of oral antibiotics. CONDITION ON DISCHARGE: Stable. SPECIFIC INSTRUCTIONS FOR THE PATIENT/FAMILY: 1. The patient is recommended to complete a full course of oral antibiotics. 2. The patient is recommended to take all other medications as directed, to be re-evaluated by admitting physician at [facility]. 3. The patient is recommended to follow up with primary care physician in the next 5 to 7 days. 4. The patient is recommended to follow up with Wound Care daily and have all appropriate wound care per Wound Care physician. 5. The patient is recommended to follow up with General Surgery and Orthopedic Surgery in the next 1 to 2 weeks. 6. The patient is recommended to return to acute care hospital immediately if signs or symptoms return, worsen, or any other new symptoms occur. TIME SPENT: Greater than 37 minutes spent coordinating care and discharge process. Job ID: [id number]
== END 2020-06-25 15:45 | DRG 871 ==
LOC: ERS 18:32 → T4-A 21:08
PROVIDERS: ADMIT Internal Medicine; ATTEND Internal Medicine
PROC: 0T9B70Z Drainage of Bladder with Drainage Device, Via Natural or Artificial Opening (ICD-10-PCS; 2020-06-17)
PROC: 30233N1 Transfusion of Nonautologous Red Blood Cells into Peripheral Vein, Percutaneous Approach (ICD-10-PCS; principal; 2020-06-20)
DX: A41.9 Sepsis, unspecified organism (principal); G93.41 Metabolic encephalopathy; U07.1 COVID-19; E43 Unspecified severe protein-calorie malnutrition; I70.261 Atherosclerosis of native arteries of extremities with gangrene, right leg; E87.0 Hyperosmolality and hypernatremia; N39.0 Urinary tract infection, site not specified; R64 Cachexia; E87.2 Acidosis; M86.8X8 Other osteomyelitis, other site; F03.90 Unspecified dementia, unspecified severity, without behavioral disturbance, psychotic disturbance, mood disturbance, and anxiety; J44.9 Chronic obstructive pulmonary disease, unspecified; G40.909 Epilepsy, unspecified, not intractable, without status epilepticus; M06.9 Rheumatoid arthritis, unspecified; K21.9 Gastro-esophageal reflux disease without esophagitis; I10 Essential (primary) hypertension; E87.6 Hypokalemia; E86.0 Dehydration; D52.9 Folate deficiency anemia, unspecified; L89.322 Pressure ulcer of left buttock, stage 2; Z68.26 Body mass index [BMI] 26.0-26.9, adult; Z79.899 Other long term (current) drug therapy
CPT/HCPCS: 36415; 36430; 51702; 70450; 71045; 80048; 80053; 80202; 81003; 81015; 82607; 82728; 82746; 83605; 85007; 85025; 85027; 86140; 86850; 86900; 86901; 87040; 87086; 87149; 87635; 93005; 94640; 96365; 96366; 96375; J0295; J0692; J1644; J3370; J3480; J3490; J7042; J7050; J7620; J7626; P9016; U0003

== ENCOUNTER 2020-07-21 05:59 | Inpatient (IN) | payer MEDICARE, MEDICAID, OTHER ==
[2020-07-21] MEDS ORDERED: Cefepime 2 GM VIAL ONE (07:06)
[2020-07-21] MEDS ORDERED: Vancomycin 1 GM/200 ML BAG ONE (07:06)
[2020-07-21 07:08] LABS: Actual Bicarbonate (HCO3a) 19.7 mEq/L (22-28); Analyzer IN Cardio ER; Base Excess (BEa) -4.4 mEq/L (-2.0 to +3.0); CO2 Tension 31.5 mmHg (35.0-45.0); Calcium, Ionized (arterial) 0.98 mmol/L (1.12-1.30); Carboxyhemoglobin (COHb) 0.3 gm% (0.0-3.0); Hemoglobin (Hb) 7.3 g/dL (12.0-16.0); O2 Tension (PaO2), arterial 199.8 mmHg (> 70.0); pH, Arterial 7.41 (7.35-7.45)
[2020-07-21 07:12] LABS: Hemoglobin 9.2 g/dL (12.0-16.0); Mean Corpuscular Hemoglobin 30.1 pg (27.0-31.0); Mean Platelet Volume 11.2 fL (7.4-10.4); Platelet Count 306 thou/uL (130-400); RBC Distribution Width 15.2 % (11.5-14.5); Red Blood Cell (RBC) Count 3.05 mill/uL (4.20-5.40); White Blood Cell (WBC) Count 9.7 thou/uL (4.8-10.8)
[2020-07-21 07:15] LABS: Band 23 % (5-11); Hypochromia SLIGHT = 6-15 cells (100X) (0-5/hpf); Lymphocytes 33 % (21-51); MDiff Complete? YES; Macrocytosis SLIGHT = 6-15 cells (100X) (0-5/hpf); Monocytes 7 % (0-10); Neutrophil 37 % (42-75); Nucleated RBC 1 % (0); Platelet Morphology Comment Appears Adequate; Polychromasia SLIGHT = 2-3 cells (100X) (0-2/hpf); Rouleaux Formation SLIGHT = 1-5 cells (100X) (None Seen); Target Cells SLIGHT = 2-5 cells (100X) (0-1/hpf)
[2020-07-21 07:17] LABS: ALV-art Gradient 46.025 (0-20); Puncture Site LRA
[2020-07-21] MEDS ORDERED: Rocuronium Bromide 10 MG/ML (10ML VIAL) ONE ×2 (07:53→07:55)
[2020-07-21 08:25] LABS: Albumin 1.8 g/dL (3.4-4.8)
[2020-07-21 08:26] LABS: Potassium 3.7 mmol/L (3.5-5.1)
[2020-07-21 08:27] LABS: Calcium 6.7 mg/dL (7.8-10.44); Glucose 146 mg/dL (83-110)
[2020-07-21 08:28] LABS: Globulin 2.9 g/dL (2.4-3.5); Protein, Total 4.7 g/dL (6.0-8.3)
[2020-07-21 08:29] LABS: Anion Gap 17 mmol/L (10-20); Bilirubin, Total 0.2 mg/dL (0.2-1.2); Carbon Dioxide 21 mmol/L (23-31)
[2020-07-21 08:30] LABS: Alkaline Phosphatase 79 U/L (40-110)
[2020-07-21 08:31] LABS: Calc. Creatinine Clearance 0 mL/min (70-130); Estimated GFR-MDRD 22
[2020-07-21] MEDS ORDERED: Norepinephrine 8 MG/0.9% NS 250 ML ONE ×2 (08:31→19:41)
[2020-07-21 08:32] LABS: BUN (Urea Nitrogen) 72 mg/dL (9.8-20.1)
[2020-07-21 08:33] LABS: ALT (SGPT) 7 U/L (8-55); AST (SGOT) 12 U/L (5-34); Chloride 134 mmol/L (98-107); Sodium 168 mmol/L (136-145)
--- NOTE | 2020-07-21 08:46 | RAD ---
EXAM: CHEST ONE VIEW HISTORY: Post intubation COMPARISON: 07/21/2020 at 0740 hours. FINDINGS: Right-sided vascular catheter remains in place with tip overlying right atrium. There has been interv al placement of an endotracheal tube with the tip overlying the T5 vertebral body and just above the level of the elsy. Nasogastric tube has also been placed in the interim with the tip overlying the expected location of the proximal body of the stomach. Calcifications of the mitral valve annulus are again seen with vascular calcifications in the thoracic aorta. Cardiac silhouette is with in normal limits. There are scattered airspace opacities again seen within the midlung zones bilaterally and at each lung base. No other interval change. IMPRESSION: 1. Interval placement of endotracheal tube and nasogastric tube with right-sided vascular catheter st able in position. 2. Multifocal airspace opacities within the lungs bilaterally which may represent multifocal pneumoni a or viral pneumonitis. Follow-up to resolution is recommended.
[2020-07-21 09:14] LABS: Actual Bicarbonate (HCO3a) 18.6 mEq/L (22-28); Analyzer IN Cardio ER; Base Excess (BEa) -6.7 mEq/L (-2.0 to +3.0); CO2 Tension 35.5 mmHg (35.0-45.0); Calcium, Ionized (arterial) 0.97 mmol/L (1.12-1.30); Carboxyhemoglobin (COHb) 0.1 gm% (0.0-3.0); O2 Tension (PaO2), arterial 80.1 mmHg (> 70.0); Potassium - ABG Lab 3.93 mmol/L (3.70-5.30); pH, Arterial 7.34 (7.35-7.45)
[2020-07-21 09:16] LABS: ALV-art Gradient 232.025 (0-20); Puncture Site LRA
[2020-07-21 09:35] LABS: Bilirubin Negative (Negative); Blood, Urine 2+ (Negative); Clarity Extra Turbid (Clear); Glucose, Urine (Dipstick) Normal (Negative); Ketone, Urine Negative (Negative); Leukocyte 500 Leu/uL (Negative); Nitrite Negative (Negative); Protein, Urine (Dipstick) 200 mg/dL (Neg-Trace); RBC/HPF 21-50 HPF (0-3); Squamous Epithelial 0-3 HPF (0-3); WBC/HPF Greater than 50 HPF (0-3); pH, Urine 7.5 (5.0-9.0)
--- NOTE | 2020-07-21 09:41 | RAD ---
CHEST 1 VIEW PORTABLE: HISTORY: Dyspnea, sepsis, hypotension, post line placement. FINDINGS: Right central line placed with the tip extending into the distal superior vena cava/right atrial junc tion. There are patchy bilateral alveolar opacity changes, particularly in the perihilar regions and lower lobes with possible small pleural effusions raising concern for bilateral pneumonia and/or laly ateral asymmetric edema. Heart size is within normal limits. These pleural and parenchymal changes are new when compared to the 06/17/2020. IMPRESSION: Developing bilateral pleural and parenchymal opacity changes, particularly in the perihilar regions s gary the prior study. Continued short-term followup for clearing or stability. POS: RRE
[2020-07-21 09:43] LABS: Bacteria/HPF 4+ HPF (None Seen)
[2020-07-21 09:44] LABS: Renal Epithelial 0-3 HPF (None Seen); Transitional Epithelial 0-3 HPF (None Seen)
[2020-07-21 09:50] LABS: SARS-CoV-2 NAA Rapid Test DETECTED (NotDetected)
--- NOTE | 2020-07-21 09:58 | RAD ---
EXAM: XR Foot Rt 2 View PROVIDED CLINICAL HISTORY: Gangrene COMPARISON: None FINDINGS: Diffuse regional osteopenia. Diffuse regional joint space loss. No evidence for fracture or other acu te osseous abnormality. If there is persistent clinical concern, conservative management and follow-up imaging advised. IMPRESSION: As above.
[2020-07-21] MEDS ORDERED: metroNIDAZOLE 500 MG/100 ML BAG ONE (09:59)
[2020-07-21] MEDS ORDERED: Calcium Carbonate 500 MG ChewTAB PO PRN (10:00)
[2020-07-21] MEDS ORDERED: Acetaminophen 650 MG Suppository PR PRN (10:00)
[2020-07-21] MEDS ORDERED: Ondansetron PF 4 MG/2 ML Vial IVP PRN (10:00)
--- NOTE | 2020-07-21 10:01 | RAD ---
Radiograph right leg tibia-fibula 2 views: 07/21/2020 HISTORY: 79-year-old female with gangrene FINDINGS: There are numerous lucencies in the soft tissues of the proximal and mid portions of the leg consiste nt with subcutaneous emphysema, consistent with stated history of gangrene. There is a large number of similar irregular multifocal lucencies overlying bone, throughout the prox imal, mid, and distal diaphyses of the fibula, and throughout the proximal and distal diaphyses of the tibia. Some of these lucencies probably represent the soft tissue gas overlying the bone. However , some of these could represent osteolytic lesions of the bone. There is questionable periosteal elevation of the proximal and mid diaphyses of the fibula. No fracture of tibia or fibula identified. IMPRESSION: 1.) Evidence for gangrene: Subcutaneous emphysema throughout the calf. 2) numerous lucencies is overlying the bone of tibia and fibula. At least some of these represent the subcutaneous emphysema overlapping bone. It is uncertain whether or not there are true osteolytic lesions, and there is a question of periostitis of the fibula, which would suggest possible osteomyel itis. Other possibilities of metastatic bone disease and multiple myeloma are also considered.
[2020-07-21] MEDS ORDERED: Acetaminophen 325 MG/10.15 ML UDCUP PO PRN (10:06)
[2020-07-21 10:15] LABS: INR-International Normal Ratio 1.7; Prothrombin Time 19.6 sec (12.0-14.7)
[2020-07-21] MEDS ORDERED: Ventilator Sedation Protocol 1 EACH FS SCH (10:15)
[2020-07-21] MEDS ORDERED: Sodium Bicarbonate 75 MEQ in Dextrose 5% in Water 1,000 ML IV SCH (10:15)
[2020-07-21 10:16] LABS: PTT 34.4 sec (22.9-36.1)
[2020-07-21] MEDS ORDERED: Propofol 1,000 MG/100 ML VIAL IV PRN (10:21)
[2020-07-21] MEDS ORDERED: fentaNYL Citrate/PF 2,000 MCG in Sodium Chloride 0.9% 60 ML IV SCH (10:21)
[2020-07-21] MEDS ORDERED: Lorazepam 2 MG/ML VIAL SLOW IVP PRN (10:21)
[2020-07-21] MEDS ORDERED: Propofol BOLUS 1,000 MG/100 ML VIAL IV PRN (10:21)
[2020-07-21] MEDS ORDERED: Fentanyl BOLUS 250 ML IVPB PRN (10:21)
[2020-07-21] MEDS ORDERED: DISCONTINUE PREVIOUS NARCOTIC PAIN MEDICATIONS AND BENZODIAZEPINES FS SCH (10:21)
[2020-07-21 10:24] LABS: Lactic Acid 4.9 mmol/L (0.5-2.2)
--- NOTE | 2020-07-21 10:42 | RAD ---
RIGHT FEMUR 3 VIEWS: Date: 07/21/2020 HISTORY: Gangrene. FINDINGS: There are degenerative changes at the hip. Femoral head contour is preserved. Femoral neck is not campos quately evaluated if there is concern of fracture. The femur is otherwise intact and unremarkable. Tibia and fibula are partially imaged and there are scattered areas of lucency and lytic lesions seen . These are only imaged in the lateral view and I cannot exclude infiltrative process involving the t ibia or fibula. IMPRESSION: 1. Degenerative changes at the hip. The femoral neck is not adequately evaluated if there is concern of fracture. Otherwise, the femur shows no acute process. 2. A lateral projection shows portions of the tibia and fibula and there are areas of lucency sugges ting diffuse infiltrative process. See separate films of tibia and fibula. POS: AH
--- NOTE | 2020-07-21 10:45 | RAD ---
RIGHT ANKLE 2 VIEWS: Date: 07/21/2020 HISTORY: Gangrene. FINDINGS/IMPRESSION: Diffuse lytic lesions are seen throughout the visualized tibia and fibula. Findings concerning for in filtrative process and osteomyelitis is a consideration given history of gangrene. No fracture at the ankle. Degenerative changes in the tarsals which are suboptimally evaluated. POS: AH
--- NOTE | 2020-07-21 10:47 | RAD ---
RIGHT KNEE 2 VIEWS: Date: 07/21/2020 HISTORY: Gangrene. FINDINGS: The knee is adequately evaluated. There is no AP projection obtained. On the lateral view, there is abnormal lucency throughout the visualized tibia and fibula suggesting an infiltrative process. Osteomyelitis would be a concern given the history of gangrene. There is fullness at the knee joint suggesting joint effusion. IMPRESSION: Inadequate evaluation of the knee due to poor positioning and no AP view. Diffuse infiltrative proces s involving the visualized tibia and fibula concerning for osteomyelitis. There is evidence of right knee joint effusion. POS: AH
[2020-07-21 11:01] LABS: CKMB 2.2 ng/mL (0-6.6)
[2020-07-21] MEDS: Hydrocortisone Sod Succ/PF 100 mg/2 ml Vial IVP SCH ×2 (11:25→20:23)
[2020-07-21] MEDS ORDERED: Dextrose 5% in Water 1,000 ML IV SCH (11:45)
[2020-07-21 13:01] LABS: Anion Gap 15 mmol/L (10-20); BUN (Urea Nitrogen) 71 mg/dL (9.8-20.1); Calc. Creatinine Clearance 0 mL/min (70-130); Calcium 6.9 mg/dL (7.8-10.44); Carbon Dioxide 21 mmol/L (23-31); Chloride 132 mmol/L (98-107); Estimated GFR-MDRD 21; Glucose 197 mg/dL (83-110); Potassium 3.9 mmol/L (3.5-5.1); Sodium 164 mmol/L (136-145)
--- NOTE | 2020-07-21 13:07 | PDOC.PALCO ---
Palliative Care Consult - Consult Details Requesting Physician: Dr Devries Reason for Consult: goals of care, assistance with communication prognosis/ disease, family support Family Members Present: Spoke to Ruth via phone - Pertinent HPI 79 year old female who resides at a [facility] facility. Discharged from [facility] 06/24 after admission related to gangrene of her right lower extremity, metabolic acidosis, declining functional status related to dementia. Family had elected to not pursue amputation, or feeding tube as patient has poor nutritional status. However the family did not elect to transition to DNAR or seek hospice. Mrs Fuentes is bedbound, total assist for all ADL, chronic wound to right lower extremity. Staff report limited ability to speak a few words but not oriented. Patient was found to have altered mental status from her baseline with aphagia. EMS was called and she was transported to [facility], intubated in the emergency room to protect airway, sedated, levophed for support. Admitted to CCU for higher level of care and medical management. - Pertinent PMH COPD, HTN, Dementia, PAD, Gangrene of right lower extremity, rheumatoid arthritis/non ambulatory status - Social History Smoking Status: Never smoker Smoking: no tobacco exposure Alcohol Use: none Drug Use History: none Living Situation: [facility] resident - Allergies Allergies/Adverse Reactions: Allergies Allergy/AdvReac Type Severity Reaction Status Date / Time No Known Allergies Allergy Verified 06/18/20 00:33 - Subjective Intubated with mechanical ventilation. sedated - ROS Non Response: due to endotracheal tube, due to mental status - Objective Vital Signs: Vital Signs - Most Recent Temp Pulse Resp BP Pulse Ox 105 H 07/21/20 11:15 Palliative Performance Scale: 20 - Physical Exam Constitutional: cachectic, emaciated, encephalitic, ill appearing HEENT: sclera anicteric Respiratory: no rhonchi, no wheezing Deviation from normal: Mechanical ventilation Cardiovascular: RRR Genitourinary: espinosa catheter Musculoskeletal: diffuse muscle atrophy, muscle wasting Deviation from normal: mild contractures Deviation from normal: sedated, no facial asymmetry Skin: fragile, friable Deviation from normal: Significant wound to right lower ext, review wound photos Deviation from normal: Unable to determine related to dementia and sedation - Problem List (1) Dementia Code(s): F03.90 - UNSPECIFIED DEMENTIA WITHOUT BEHAVIORAL DISTURBANCE Current Visit: Yes Status: Acute (2) Malnutrition Code(s): E46 - UNSPECIFIED PROTEIN-CALORIE MALNUTRITION Current Visit: Yes Status: Acute (3) COPD (chronic obstructive pulmonary disease) Current Visit: No Status: Acute (4) COVID-19 Code(s): U07.1 - COVID-19 Current Visit: No Status: Acute (5) Ischemia of right lower extremity Code(s): I99.8 - OTHER DISORDER OF CIRCULATORY SYSTEM Current Visit: No Status: Acute (6) Metabolic encephalopathy Code(s): G93.41 - METABOLIC ENCEPHALOPATHY Current Visit: No Status: Acute - Plan/Recommendations Plan: Patient intubated with mechanical ventilation. Dressing being removed from lower extremity, wound photos. Wound Care called. Reviewed with Dr Devries. Spoke to patient daughter Ruth [phone]. She communicated she is on her way to the hospital. Reviewed her mothers status, discussed consideration of DNAR. She states she will not make this decision without her two sisters (He brother is in a facility and not able to participate) Reviewed poor prognosis, decline. Hope for family conference for family to view Ms Fuentes through the window ( Covid ) and view wound photos, update from physicians, then address Goal of Care with family. [50] minutes spent on this encounter with >50% of the time in counseling and coordination of care. Thank you for this very appropriate consult.
[2020-07-21 16:38] LABS: Anion Gap 21 mmol/L (10-20); BUN (Urea Nitrogen) 71 mg/dL (9.8-20.1); Calc. Creatinine Clearance 0 mL/min (70-130); Calcium 6.7 mg/dL (7.8-10.44); Carbon Dioxide 17 mmol/L (23-31); Chloride 129 mmol/L (98-107); Estimated GFR-MDRD 20; Glucose 248 mg/dL (83-110); Potassium 5.1 mmol/L (3.5-5.1); Sodium 162 mmol/L (136-145)
[2020-07-21 16:43] LABS: Critical Call Chem Troponin I RESULT DECREASING
[2020-07-21 17:01] LABS: CKMB 2.9 ng/mL (0-6.6)
[2020-07-21] MEDS: Sodium Bicarbonate 100 MEQ in Dextrose 5% in Water 1,000 ML IV SCH (18:52)
[2020-07-21 20:02] LABS: SARS-CoV-2 IgG Ab Reactive (NonReactive); SARS-CoV-2 IgG Index 6.07 S/CO (< 1.40)
[2020-07-21] MEDS: Heparin 5,000 UNITS/ML VIAL SC SCH (20:23)
[2020-07-21] MEDS: MEROPENEM 1 GM/50 ML 1 GM in Premix Bag 1 BAG IVPB SCH (20:23)
--- NOTE | 2020-07-21 20:27 | HP ---
PRIMARY CARE PHYSICIAN: Dr. Deras at [facility]. CHIEF COMPLAINT: Altered mentation. HISTORY OF PRESENT ILLNESS: The patient is a 79-year-old female with chronic right lower extremity gangrene, currently residing at nursing facility, was brought in to the hospital with altered mentation. Please refer to the discharge summary dated 25 June 2020 for details on recent hospitalization. History obtained from the family. Limited records from the residential. I was unable to find the list of medications from the residential. The patient was found to have altered mentation that has been worsening over the past 12 to 24 hours. She is normally awake and speaks in short sentences. She was acting different per the residential staff. She was last seen normal yesterday. There was no fall, fever, or focal neurologic deficit reported. She has a history of COVID infection earlier this year. In the emergency room, the patient was subsequently intubated and was placed on mechanical ventilation. Central line was placed as well. She was found to have sodium of 168 with lactic acid of 7.9, WBC of 9.7 with 23% bandemia with blood pressure in systolic 80s with respirations of 42 prior to ventilation and heart rate in 140s. Her O2 saturation, however, was 100% on room air. She also received IV vancomycin, cefepime, and Flagyl along with medications for intubation. She received 30 mL/kg of sodium chloride. PAST MEDICAL HISTORY: 1. Chronic gangrene of the right leg. 2. Recent COVID infection. 3. Chronic obstructive pulmonary disease. 4. Dementia. 5. Hypertension. 6. Gastroesophageal reflux disease. 7. Rheumatoid arthritis. PAST SURGICAL HISTORY: Cannot be obtained from the patient due to current mentation. SOCIAL HISTORY: Cannot be obtained from the patient due to current mentation. FAMILY HISTORY: Cannot be obtained from the patient due to current mentation. ALLERGIES: CANNOT BE OBTAINED FROM THE PATIENT DUE TO CURRENT MENTATION. MEDICATIONS: Cannot be obtained from the patient due to current mentation. Please note that there is no list of medications sent from the residential. REVIEW OF SYSTEMS: Cannot be obtained from the patient due to current mentation. PHYSICAL EXAMINATION: VITAL SIGNS: As discussed above. Her temperature was 97.3. GENERAL: A 79-year-old cachectic female with contractures on mechanical ventilation. HEENT: Head, atraumatic and normocephalic. Sclerae anicteric. Dry mucous membrane. No oral lesion. NECK: Supple. No JVD appreciated. No neck stiffness. LUNGS: Showed diminished air entry at bilateral bases with scattered rhonchi. HEART: S1 and S2 present. Tachycardic. No rubs or gallops. ABDOMEN: Soft. No rebound or guarding. EXTREMITIES: Extensive gangrene of the right leg up to the lower thigh with contractures. NEURO: Limited due to current mentation. PSYCHIATRY: Limited due to current mentation. SKIN: As discussed above. LYMPH NODES: No palpable lymph nodes in the neck. PERIPHERAL VASCULAR: Radial pulses are palpable bilaterally, very low volume. I was unable to palpate the femoral pulses on the right due to significant contractures. MUSCULOSKELETAL: No significant joint swelling or tenderness. DIAGNOSTIC TESTS: EKG by my review showed sinus tachycardia with nonspecific ST-T wave changes. CBC showed WBC 9.7 with hemoglobin 9.2, hematocrit 30.6, platelets of 306 with 23% bandemia. PT 19.6, INR 1.7. ABG showed pH 7.41 with pCO2 of 31.5, bicarbonate 19.7. Sodium 168 with potassium 3.7, chloride 134, bicarb 21, BUN 72, and creatinine 2.52. Creatinine earlier this month was 0.62. Lactic acid 7.9. CRP was 37.9. Cortisol 59.8. Osmolality was 370. Urinalysis showed greater than 50 wbc's with 4+ bacteria, ketones 0.45. COVID testing was positive. Chest x-ray by my review was negative for infiltrate. Right foot x-ray showed osteopenia. Tibia, fibula, and femur x-ray showed evidence of gangrene with subcutaneous emphysema throughout the calf. IMPRESSION: 1. Severe sepsis/septic shock with urinary tract infection and right lower extremity gangrene. 2. Toxic metabolic encephalopathy. 3. Severe hypertonic hypernatremia with sodium 168 with serum osmolality 370. 4. Lactic acidosis. 5. Recent COVID infection with persistent COVID positive. 6. Relative adrenal insufficiency. 7. Chronic anemia, probably due to nutritional deficiency. 8. Severe protein-calorie malnutrition. 9. Gastroesophageal reflux disease. 10. History of rheumatoid arthritis. 11. Dementia. 12. Chronic obstructive pulmonary disease. 13. Metabolic acidosis. PLAN: The patient will be monitored in the intensive care unit. We will continue Levophed. We will start her on D5 water with sodium bicarbonate. We will start stress dose steroids. Empiric vancomycin with meropenem. Continue mechanical ventilation. Monitor base met every four hourly for now. Repeat chest x-ray and ABG in a.m. We will check COVID-19 antibody. Recheck lactic acid in a.m. Repeat osmolality in a.m. Monitor vancomycin level. I had extensive discussion with family at the bedside. General Surgery will be consulted as well per family's request. Await blood and urine cultures. Job ID: [id number]
--- NOTE | 2020-07-21 20:44 | CON ---
DATE OF CONSULTATION: 07/21/2020 REASON FOR CONSULTATION: Necrotizing infection right lower extremity, sepsis, and COVID infection. HISTORY OF PRESENT ILLNESS: A 79-year-old, who has dementia and is a resident at a local long term and has peripheral vascular disease and hypertension, rheumatoid arthritis, and COPD. The patient developed gangrene of the right lower extremity. She was seen in the hospital recently. After extensive conversations with family, the family decided against any aggressive intervention, so she was discharged back to long term. She is back now brought by EMS from the long term because of altered mental state. On arrival, she was not responding and the ER physician talked to the family, the family stated that they wanted full code status and she was intubated and transferred to the ICU. She is now on broad-spectrum antimicrobial coverage. She was intermittently hypotensive at the emergency room. She is receiving inhalers, IV electrolytes, p.r.n. pain medication, sedatives, meropenem, vancomycin, and Levophed. Right now, she is not responsive and cachectic. The right lower extremity is contracted and most of the extremity is covered with dressing. The foot is exposed and there is obvious dry gangrene with sort of humidified foot. According to the nurse description, the patient has active wet gangrene in the remainder aspect of her right lower extremity. Orotracheal intubation. PAST MEDICAL HISTORY: Includes dementia, Alzheimer's reportedly, but could be perfectly vascular dementia. History of GERD, hypertension, peripheral vascular disease, COPD, gangrene right leg, and dry gangrene right foot. ALLERGIES: NONE. SOCIAL HISTORY: [facility] resident. She recently had COVID pneumonia diagnosed in [facility], that was diagnosed at the end of May, not very severe. She used to be a smoker. She is a long term resident at the moment. MEDICATIONS: Have been described above. At [facility], she was on; 1. Misoprostol. 2. Metoprolol. 3. Magnesium. 4. Keppra. 5. Leflunomide. 6. Lactobacillus. PHYSICAL EXAMINATION: VITAL SIGNS: Pulse 105, FiO2 of 50 intubation, PEEP of 5 orotracheal intubation. SKIN: Dry gangrene right foot and wet gangrene remainder of the right lower extremity. Peripheral IV access and Quintanilla catheter. HEENT: Ocular movements are not able to be evaluated because of sedation. pupils are constricted. Sclerae white. Temporal wasting noted. A few remaining teeth. No jugular venous distention. LUNGS: Symmetric air entry with kind of loud rhonchi in the left lower base. HEART: S1 and S2. Regular rate. ABDOMEN: Soft, not distended. Somewhat scaphoid. No ascites. No bladder distention. EXTREMITIES: Right lower extremity kept in a contracted position. No pulses are felt in the right foot, which is mummified. Left foot with 1+ dorsalis pedis. Onychodystrophy. LABORATORY DATA: White cell count 9.7, hemoglobin 9.2, and platelets 306 with 23% bands. INR 1.7. Sodium 164 and creatinine 2.62. Ferritin 11,000. CRP 37. Albumin 1.8, bilirubin 0.2, AST 12, ALT 7, alkaline phosphatase 79. I could not observe any movements at the moment. Tibia-fibula x-ray with gangrene with subcutaneous emphysema throughout the calf lucencies overlying the bone. Tibia and fibula are hard to tell if there are osteolytic lesions. Chest x-ray with endotracheal tube and multifocal airspace opacities. ASSESSMENT: Peripheral vascular disease, Alzheimer's versus vascular dementia, severe neurological impairment, chronic peripheral vascular disease with dry gangrene right foot and wet gangrene right lower extremity, sepsis, altered mental state, and recent covert pneumonia. DISCUSSION: Evidently the case merits palliative care/hospice and not aggressive intervention. Unfortunately, her family insists in the continuation of aggressive intervention. The Covid infection should be resolved by now and she does not require any further isolation precautions. Broad-spectrum coverage is somewhat futile in this situation without AKA amputation. Even in the face of amputation, the surviva bility in this situation is low. I would continue the efforts at trying to change the family's mind regarding palliative care. Job ID: [id number] [facility]
[2020-07-21 20:51] LABS: Anion Gap 18 mmol/L (10-20); BUN (Urea Nitrogen) 73 mg/dL (9.8-20.1); Calc. Creatinine Clearance 11 mL/min (70-130); Calcium 6.8 mg/dL (7.8-10.44); Carbon Dioxide 19 mmol/L (23-31); Estimated GFR-MDRD 20; Glucose 278 mg/dL (83-110); Potassium 3.8 mmol/L (3.5-5.1); Sodium 160 mmol/L (136-145)
--- NOTE | 2020-07-21 20:52 | CON ---
DATE OF CONSULTATION: 07/21/2020 CONSULTING PHYSICIAN: REASON FOR CONSULTATION: Acute kidney injury, hypernatremia. REASON FOR ADMISSION: Altered mentation. HISTORY OF PRESENT ILLNESS: This is a 79-year-old female with history of hypertension, rheumatoid arthritis, Alzheimer's, COPD, who came to the hospital with altered mentation. She is a [facility] resident, was found to have altered mentation, this morning sent to the hospital. She also found to have a right leg gangrene. The patient is intubated and is transferred to ICU currently. The patient was also tested positive for COVID. PAST MEDICAL HISTORY: Positive for GERD, hypertension, COPD, Alzheimer disease, vascular disease, and gangrene. PAST SURGICAL HISTORY: Not available. HOME MEDICATIONS: Reviewed. ALLERGIES: NO KNOWN DRUG ALLERGIES. SOCIAL HISTORY: No smoking, alcohol, or illicit drug abuse. She is a [facility] resident. FAMILY HISTORY: No history of any kidney disease. REVIEW OF SYSTEMS: Could not be obtained. PHYSICAL EXAMINATION: GENERAL: The patient is in ICU intubated. VITAL SIGNS: Temperature 97.9, pulse 84, respiratory rate 16, blood pressure 106/73. The patient is on COVID isolation. LABORATORY DATA: Hemoglobin . Potassium 3.9, sodium 164, chloride 132, bicarb 21, BUN 71, creatinine is 2.6. ASSESSMENT AND PLAN: 1. Acute kidney injury. Continue hydration. 2. Hypernatremia with hyperchloremia. 3. Acidosis. 4. Anemia. 5. Hypoalbuminemia. Recommend D5W with possible bicarb as tolerated. Plan discussed with Dr. Devries. Also, plan is to repeat labs at 4:00 p.m. and decide on the fluids. Currently, on D5W with one amp of bicarb. Prognosis guarded. Thank you for the consult. Job ID: [id number]
[2020-07-21 20:54] LABS: Chloride 127 mmol/L (98-107)
[2020-07-21] MEDS ORDERED: Meropenem 1 GM in Sodium Chloride 0.9% 100 ML IVPB SCH (21:00)
--- NOTE | 2020-07-22 01:19 | CON ---
DATE OF CONSULTATION: 07/21/2020 HISTORY OF PRESENT ILLNESS: Ms. Fuentes is a 79-year-old female, who has basically a lower extremity. Apparently up until this point, she has had dry gangrene of her right lower extremity. This has been going on for many months. There are multiple documentations from the last month but her family had meetings with the caregivers and declined to make her DNR but also declined to allow for amputation. She lives in a [facility], has advanced dementia and history of rheumatoid arthritis. She is bed-ridden. She presents today with a change in her clinical status as well as smelly wounds. Family has again been consulted regarding surgical treatment of these versus comfort care and may want everything done from my discussion with the nurses. PAST MEDICAL HISTORY: Not obtainable from the patient. It is remarkable for dementia, renal failure, cachexia, chronic bedridden state, hypertension, and reported history of COPD. SOCIAL HISTORY: She is not a current smoker and not a current drinker. REVIEW OF SYSTEMS: Not obtainable. MEDICATIONS: Have been reviewed. PHYSICAL EXAMINATION: VITAL SIGNS: The patient is intubated. Heart rate is 113, blood pressure is 99 /61, and respiratory rates in the teens. GENERAL: She is extremely cachectic appearing with contractures. Nursing staff has documented all of her wounds. NECK: Without lymphadenopathy. LUNGS: Clear at this time. HEART: Regular rhythm. ABDOMEN: Soft. No guarding. EXTREMITIES: Right lower extremity is dry but starting at the knee and working up, it is moist and smelly. She has several gluteal issues as well. LABORATORY DATA: White count is 9.7, hemoglobin 9.2, and platelets 306,000. Sodium 162, potassium 5.1, chloride 129, bicarb 17, BUN 71, and creatinine 2.75. Creatinine was 0.6 on the 4th of this month. IMPRESSION: 1. Mixed wet-to-dry gangrene of her lower extremity that is progressing, which will ultimately lead to her demise. 2. Severe intravascular volume depletion secondary to her advanced dementia leading to hypernatremia, hyperchloremia as well as an elevated creatinine and a hyperosmolar state. There are no good therapeutic options and at this point, an amputation will be fraught with issues surrounding nonhealing given her horribly malnourished state. case for Adult Protective Services in my opinion. I have nothing to add to her current care. PH mechanically ventilated is 7.34, CO2 of 35, and PO2 of 80 at this time, which is more than adequate ventilation to correct her mild acid- base disorder. There is no significant hypoxemia at this time. Critical care time 30 min. Job ID: [id number] MTDD
[2020-07-22] MEDS: Hydrocortisone Sod Succ/PF 100 mg/2 ml Vial IVP SCH ×3 (03:23→21:14)
[2020-07-22 04:41] LABS: ALT (SGPT) 7 U/L (8-55); AST (SGOT) 20 U/L (5-34); Albumin 1.9 g/dL (3.4-4.8); Alkaline Phosphatase 82 U/L (40-110); Anion Gap 20 mmol/L (10-20); BUN (Urea Nitrogen) 76 mg/dL (9.8-20.1); Bilirubin, Total 0.2 mg/dL (0.2-1.2); Calc. Creatinine Clearance 10 mL/min (70-130); Calcium 6.7 mg/dL (7.8-10.44); Carbon Dioxide 21 mmol/L (23-31); Chloride 124 mmol/L (98-107); Estimated GFR-MDRD 19; Globulin 3.2 g/dL (2.4-3.5); Glucose 297 mg/dL (83-110); Potassium 3.9 mmol/L (3.5-5.1); Protein, Total 5.1 g/dL (6.0-8.3); Sodium 161 mmol/L (136-145)
[2020-07-22 04:43] LABS: Lactic Acid 6.4 mmol/L (0.5-2.2)
[2020-07-22 05:42] LABS: Band 30 % (5-11); Lymphocytes 8 % (21-51); MDiff Complete? YES; Mean Corpuscular HGB CONC 28.3 g/dL (32.0-36.0); Mean Corpuscular Hemoglobin 28.2 pg (27.0-31.0); Mean Corpuscular Volume 99.3 fL (78.0-98.0); Mean Platelet Volume 10.6 fL (7.4-10.4); Metamyelocyte 7 % (0-0); Monocytes 2 % (0-10); Myelocyte 2 % (0-0); Neutrophil 51 % (42-75); Platelet Count 204 thou/uL (130-400); RBC Distribution Width 14.4 % (11.5-14.5); Red Blood Cell (RBC) Count 2.13 mill/uL (4.20-5.40); White Blood Cell (WBC) Count 7.8 thou/uL (4.8-10.8)
[2020-07-22] MEDS: Norepinephrine 8 MG/0.9% NS 250 ML IVPB PRN ×2 (05:46→23:49)
[2020-07-22 06:14] LABS: Hemoglobin 5.6 g/dL (12.0-16.0); Platelet Count 193 thou/uL (130-400)
[2020-07-22] MEDS: Sodium Bicarbonate 100 MEQ in Dextrose 5% in Water 1,000 ML IV SCH (07:56)
[2020-07-22 08:35] LABS: Vancomycin, Random 15.9 ug/mL (See Comment)
--- NOTE | 2020-07-22 08:50 | RAD ---
PORTABLE CHEST: HISTORY: Respiratory distress. COMPARISON: Prior day's exam. FINDINGS: Endotracheal and NG Tubes are in satisfactory position. The parenchymal lung changes are felt to be essentially stable given the differences in technique. Right central line is unchanged in position. Mitral annulus calcifications again noted. IMPRESSION: Essentially stable chest. POS: VERONICA
[2020-07-22] MEDS ORDERED: Vancomycin 1 GM in Premix Bag 1 BAG IVPB SCH ×2 (09:00→10:15)
[2020-07-22] MEDS: Famotidine/PF 20 mg/2ml Vial SLOW IVP SCH (09:13)
[2020-07-22] MEDS: Heparin 5,000 UNITS/ML VIAL SC SCH (09:13)
[2020-07-22] MEDS: Folic Acid 1 MG TAB PER TUBE SCH ×2 (09:13→21:14)
[2020-07-22] MEDS: Famotidine 20 MG TAB PO SCH (09:14)
[2020-07-22] MEDS: MEROPENEM 1 GM/50 ML 1 GM in Premix Bag 1 BAG IVPB SCH ×2 (09:14→21:14)
[2020-07-22] MEDS: Dextrose 5% in Water 1,000 ML IV SCH ×3 (11:05→19:39)
--- NOTE | 2020-07-22 13:09 | PRG ---
DATE OF SERVICE: SUBJECTIVE: The patient seen in ICU, intubated, nonverbal. OBJECTIVE: VITAL SIGNS: Temperature 97.7, pulse 90, respiratory rate 12, blood pressure 107/60. HEENT: Intubated. CVS: S1 and S2 heard. RESPIRATORY: Clear. GI: Abdomen is soft. MUSCULOSKELETAL: No edema. DERMATOLOGIC: No skin rash. NEUROLOGICAL: Intubated and not responding. LABORATORY DATA: Sodium 161, potassium 3.9, chloride 124, BUN is 76, and creatinine is 2.84. Serum osmolality 364. Hemoglobin is 5.6. Calcium is 6.7. Albumin 1.9. ASSESSMENT AND PLAN: 1. Acute kidney injury. We will continue hydration. 2. Hypernatremia with hyperchloremia. Plan to continue on D5W. 3. Lactic acidosis. 4. Anemia. Rule out any bleed. 5. . 6. Hypoalbuminemia. Overall prognosis is poor. The patient most likely is having ischemic ATN with other ischemic process. Plan discussed with Dr. Devries also to evaluate further, especially given the acute drop in hemoglobin. We will continue D5 water for the hypernatremia for now. Again, prognosis is very guarded. We will monitor. Continue critical care monitoring. Job ID: [id number]
[2020-07-22] MEDS ORDERED: Insulin Regular 300 UNITS/3 ML VIAL SC PRN (14:05)
[2020-07-22] MEDS ORDERED: Dextrose 5% in Water 1,000 ML IV PRN (14:05)
[2020-07-22 14:20] LABS: Hemoglobin 9.1 g/dL (12.0-16.0)
[2020-07-22 14:37] LABS: Anion Gap 22 mmol/L (10-20); BUN (Urea Nitrogen) 73 mg/dL (9.8-20.1); Calc. Creatinine Clearance 11 mL/min (70-130); Calcium 6.4 mg/dL (7.8-10.44); Carbon Dioxide 19 mmol/L (23-31); Chloride 118 mmol/L (98-107); Estimated GFR-MDRD 20; Glucose 431 mg/dL (83-110); Potassium 3.7 mmol/L (3.5-5.1); Sodium 155 mmol/L (136-145)
[2020-07-22] MEDS: Insulin Regular 300 UNITS/3 ML VIAL SC PRN ×2 (14:47→22:10)
--- NOTE | 2020-07-22 16:50 | PRG ---
DATE OF SERVICE: 07/22/2020 SUBJECTIVE: Ms. Fuentes remains hemodynamically stable. IV fluids have been adjusted to hopefully accelerate rehydration, but without a PEG, this is futile. OBJECTIVE: VITAL SIGNS: She is afebrile, heart rate 88, blood pressure 109/59. GENERAL: She is nonverbal, does not follow commands. LUNGS: Remarkable for coarse equal breath sounds. HEART: Regular rhythm. ABDOMEN: Soft. EXTREMITIES: Legs unchanged. LABORATORY DATA: Hemoglobin is 5.6 this morning, it is up to 9.1 after transfusion. Sodium 155, potassium 3.7, chloride 118, bicarb 19, BUN 73, creatinine 2.79. IMPRESSION: 1. Hyperosmolar state secondary to severe intravascular volume depletion. 2. Gangrene of her leg. Family is declining amputation. Family has been informed that she will likely not survive this. Family still apparently been resistant to the idea do not resuscitate status. In my opinion, CPR will not be in her best interest or even the healthcare providers' best interest. We will continue supportive care per family wishes with hydration, monitoring of her renal function. Job ID: [id number]
--- NOTE | 2020-07-22 18:57 | PDOC.HOSPP ---
- Subjective Encounter Date: 07/22/20 Encounter Time: 12:30 non-verbal Subjective: Patient seen and examined for severe sepsis/septic shock. Remains on mechanical ventilation. On Levophed. Received 2 units of PRBC due to significant anemia. No significant change in her mentation. - Objective Vital Signs & Weight: Vital Signs (12 hours) Temp Pulse Pulse Resp BP BP Pulse Ox 07/22/20 18:00 12 07/22/20 16:00 12 07/22/20 15:00 97.7 F 07/22/20 14:26 88 94/56 L 07/22/20 14:00 12 07/22/20 13:19 97.9 F 89 12 104/63 100 07/22/20 12:00 12 07/22/20 11:00 97.7 F 07/22/20 10:58 97 105/59 L 07/22/20 10:40 97.7 F 96 12 105/59 L 100 07/22/20 10:26 98.2 F 88 12 120/66 100 07/22/20 10:00 98.2 F 81 12 131/60 100 07/22/20 08:00 12 99 07/22/20 07:30 108 H 89/61 L 07/22/20 07:00 97.9 F Weight Admit Weight 91 lb Weight 91 lb 11.397 oz Most Recent Monitor Data Heart Rate from ECG 92 NIBP 104/66 NIBP BP-Mean 78 Respiration from ECG 12 SpO2 98 I&O: 07/21/20 07/22/20 07/23/20 06:59 06:59 06:59 Intake Total 2223 2794 Output Total 55 125 Balance 6175 4707 Result Diagrams: 07/22/20 14:06 07/22/20 14:06 Additional Labs: Accuchecks 07/22/20 14:17 POC Glucose 383 H Microbiology 07/21/20 08:43 Urine espinosa catheter Urine Culture - Preliminary 07/21/20 07:31 Venous blood - Neck Blood Culture - Preliminary Gram Negative Freddy 07/21/20 06:20 Venous blood - Left Arm Blood Culture - Preliminary Presumptive Escherichia coli Laboratory Tests 07/21/20 07/21/20 07/21/20 08:40 08:43 09:45 Hgb Folate Urine WBC Greater than 50 A Urine Bacteria 4+ A B-Hydroxybutyrate 0.45 H SARS-CoV-2 Rap RNA(RT-PCR) DETECTED A* SARS-CoV-2 IgG Ab Index 07/21/20 07/22/20 07/22/20 12:19 03:00 03:00 Hgb 6.0 L Folate 1.80 L Urine WBC Urine Bacteria B-Hydroxybutyrate SARS-CoV-2 Rap RNA(RT-PCR) SARS-CoV-2 IgG Ab Index 6.07 07/22/20 05:45 Hgb 5.6 L* Folate Urine WBC Urine Bacteria B-Hydroxybutyrate SARS-CoV-2 Rap RNA(RT-PCR) SARS-CoV-2 IgG Ab Index Radiology Reviewed by me: Yes (Chest x-ray no new changes) EKG Reviewed by me: Yes (Sinus rhythm on telemetry) Hospitalist ROS - Review of Systems ROS unobtainable: due to mental status - Medication Medications: Active Medications Generic Name Dose Route Start Last Admin Trade Name Freq PRN Reason Stop Dose Admin Famotidine 20 mg 07/22/20 09:00 07/22/20 09:13 Pepcid SLOW IVP 20 mg DAILY JOSE Administration Famotidine 20 mg 07/22/20 09:00 07/22/20 09:14 Pepcid PO Not Given DAILY JOSE Folic Acid 1 mg 07/22/20 09:00 07/22/20 09:13 Folvite PER TUBE 1 mg BID JOSE Administration Hydrocortisone Sodium Succinate 100 mg 07/21/20 12:00 07/22/20 11:51 Solu-Cortef IVP 100 mg 0400,1200,2000 JOSE Administration Norepinephrine Bitartrate 250 mls @ 0 mls/hr 07/21/20 10:06 07/22/20 05:46 Levophed IVPB 250 mls PRN PRN Administration To maintain MAP > 65 Protocol Titrate Fentanyl Citrate 2,000 mcg/ 100 mls @ 0 mls/hr 07/21/20 10:21 07/21/20 21:00 Sodium Chloride IV 08/20/20 10:21 100 mls INF JOSE Administration Protocol Per Protocol Meropenem 1 gm/ Device 50 mls @ 100 mls/hr 07/21/20 21:00 07/22/20 09:14 IVPB 50 mls Q12HR JOSE Administration Insulin Human Regular 0 units 07/22/20 14:05 07/22/20 14:47 Humulin R SC 6 unit .MILD SLIDING SCALE PRN Administration Mild Correctional Scale - Exam General Appearance: ill appearing Neck: supple, no JVD Heart: RRR, no gallops, no rubs, normal peripheral pulses Respiratory: no wheezes, no rales, normal chest expansion, rhonchi Gastrointestinal: soft, non-distended, no guarding, no rigidity Extremities: no cyanosis, no clubbing Extremities - other findings: Right lower extremity gangrene Neurological - other findings: Neuro/psych exam limited due to current mentation Hosp A/P - Plan GI proph 1. Severe sepsis/septic shock with urinary tract infection and right lower extremity gangrene/ E coli bacteremia 2. Toxic metabolic encephalopathy. 3. Severe hypertonic hypernatremia with sodium 168 with serum osmolality 370/ severe dehydration 4. Lactic acidosis. 5. Recent COVID infection with persistent COVID positive. 6. Relative adrenal insufficiency. 7. Acute on chronic anemia. 8. Severe protein-calorie malnutrition. 9. Gastroesophageal reflux disease. 10. History of rheumatoid arthritis. 11. Dementia. 12. Chronic obstructive pulmonary disease. 13. Metabolic acidosis. PLAN: 07/22 Change IV fluid to D5 water per nephrology recommendation. Transfuse 2 units of PRBC. Continue empiric vancomycin with meropenem. Monitor vancomycin level. Continue low-dose Levophed with mechanical ventilation. Recheck lactic acid in a.m. A.m. labs. Family to discuss with Dr. Louis later today. Continue CCU monitoring. Hold heparin due to significant anemia. Continue stress dose steroid.
--- NOTE | 2020-07-22 20:22 | CON ---
DATE OF CONSULTATION: HISTORY OF PRESENT ILLNESS: Aidee Fuentes is a 79-year-old female correction patient who I saw in last hospitalization on 06/18/2020 regarding gangrene of her right leg. She had gangrene to above the knee with contractures. She was malnourished and was not feeding. She was not taking oral calories or liquids. She has a history of severe rheumatoid arthritis, has a history of dementia, on disability, bedridden, nonambulatory. She suffers from GERD. At that time, I talked to the daughter and they did not want PEG tube, did not want tracheostomy, did not want amputation. They wanted comfort measures. Unfortunately, however, the patient was transferred back to the long-term care facility without a DNR. She on this occasion was readmitted in extremis from the emergency room to the Hospitalist Service. She had altered mentation and only speaking in short sentences, but had an acute mental status change without a fall. She had a history of colon infection earlier in the year. The patient in the emergency room required intubation, placed on mechanical ventilation. She had a sodium of 168, lactate of 7.9, white count 9.7, 23% bandemia. Hypotension, blood pressure in the 80s, respiratory rate of 42 prior to intubation. She received vancomycin, cefepime and Flagyl. Cultures positive E coli blood. Urine culture, mixed cultures. Chest x-ray revealed bilateral effusions, parenchymal opacities. Followup chest x-ray today reveals stable chest. White count is 7.8, hemoglobin 5.6. She was transfused. She had 30% bands. Sodium 161 this morning, repeat 155, chloride 118, carbon dioxide 19, BUN and creatinine 2.79 and 20. Urine output, oliguric 5 to 25 mLs. Nephrology is seeing her. Family has visited yesterday but the primary caregiver has returned back to [place]. PHYSICAL EXAMINATION: GENERAL: The patient is intubated, sedated. VITAL SIGNS: Temperature 97.7 degrees, blood pressure 109/59, heart rate 75. LUNGS: Clear to auscultation, rhonchi at base. CARDIAC: Sinus tachycardia versus atrial fibrillation. ABDOMEN: Soft. EXTREMITIES: Weak femoral pulse, right. Gangrenous changes in right leg to above her knee. This appears to be dry gangrene. There is contracture of her knee and hip. ASSESSMENT AND PLAN: 1. Sepsis, E coli, etiology unclear. Her leg looks dry gangrenous. I doubt this is the source. 2. Malnutrition. 3. Acute renal failure, oliguric. 4. Severe dehydration with hypernatremia. 5. Respiratory failure. 6. Failure to thrive. 7. Deconditioning. I have called the patient's power of coupon collection clerk and talked to her regarding the patient's condition. I have explained the poor prognosis. I have discussed the patient's care with the hospitalist and Dr. Eubanks. All physicians agree that surgical intervention is not warranted. The patient is not a good candidate for a tracheostomy, not a good candidate for a PEG, not a good candidate for high [id number] amputation. Healing potential is very poor due to her severe PAD. Her surgical risks are great. Her morbidity mortality are prohibitive. I have discussed this with the daughter and the daughter states she will talk to other family members. The daughter has my cell phone number and other family members may call me to further discuss her care. At this point, I would recommend extubation and comfort measures only and the daughter is in favor of that. The daughter does not want PEG tube, does not want tracheostomy, does not want amputation. The patient is not fit for such amputation at this time with her hypernatremia and acute renal failure and malnourishment. Even with an amputation, her quality of life would not improve in long-term and her prognosis is still not good at all. Job ID: [id number]
[2020-07-23] MEDS: Hydrocortisone Sod Succ/PF 100 mg/2 ml Vial IVP SCH ×3 (03:05→19:50)
[2020-07-23] MEDS: Insulin Regular 300 UNITS/3 ML VIAL SC PRN (04:45)
[2020-07-23] MEDS: Dextrose 5% in Water 1,000 ML IV SCH ×2 (04:54→12:45)
[2020-07-23 06:52] LABS: Lactic Acid 4.7 mmol/L (0.5-2.2)
[2020-07-23 06:55] LABS: Band 23 % (5-11); Hemoglobin 9.5 g/dL (12.0-16.0); Large Platelets SLIGHT; Lymphocytes 8 % (21-51); MDiff Complete? YES; Mean Corpuscular Hemoglobin 28.9 pg (27.0-31.0); Mean Corpuscular Volume 90.4 fL (78.0-98.0); Mean Platelet Volume 10.6 fL (7.4-10.4); Metamyelocyte 4 % (0-0); Monocytes 2 % (0-10); Neutrophil 63 % (42-75); Nucleated RBC 3 % (0); Platelet Count 98 thou/uL (130-400); Platelet Morphology Comment Appears Decreased; RBC Distribution Width 14.9 % (11.5-14.5); Red Blood Cell (RBC) Count 3.27 mill/uL (4.20-5.40); Toxic Granulation SLIGHT; White Blood Cell (WBC) Count 8.9 thou/uL (4.8-10.8)
[2020-07-23 06:57] LABS: ALT (SGPT) 8 U/L (8-55); AST (SGOT) 27 U/L (5-34); Albumin 1.9 g/dL (3.4-4.8); Alkaline Phosphatase 117 U/L (40-110); Anion Gap 18 mmol/L (10-20); BUN (Urea Nitrogen) 76 mg/dL (9.8-20.1); Bilirubin, Total 0.2 mg/dL (0.2-1.2); Calc. Creatinine Clearance 12 mL/min (70-130); Calcium 6.7 mg/dL (7.8-10.44); Carbon Dioxide 21 mmol/L (23-31); Chloride 116 mmol/L (98-107); Estimated GFR-MDRD 20; Globulin 3.1 g/dL (2.4-3.5); Glucose 210 mg/dL (83-110); Potassium 3.3 mmol/L (3.5-5.1); Sodium 152 mmol/L (136-145)
[2020-07-23 06:59] LABS: Reticulocyte Count 0.8 % (0.5-1.5)
[2020-07-23] MEDS: Famotidine/PF 20 mg/2ml Vial SLOW IVP SCH (08:11)
--- NOTE | 2020-07-23 08:41 | RAD ---
CHEST 1 VIEW: Date: 07/23/2020 HISTORY: Respiratory insufficiency. FINDINGS: Endotracheal tube, enteric tube, and right central line are in place again. Monitor leads overlie and somewhat obscure the chest. Again noted are bilateral diffuse hazy increased markings, evidence for some vascular congestion and bilateral pleural effusions. IMPRESSION: Stable exam. POS: RRE
[2020-07-23 09:03] LABS: Vancomycin, Random 29.2 ug/mL (See Comment)
[2020-07-23] MEDS: MEROPENEM 1 GM/50 ML 1 GM in Premix Bag 1 BAG IVPB SCH (09:23)
[2020-07-23] MEDS: Famotidine 20 MG TAB PO SCH (09:23)
[2020-07-23] MEDS: Folic Acid 1 MG TAB PER TUBE SCH ×2 (09:23→20:03)
--- NOTE | 2020-07-23 12:38 | PRG ---
DATE OF SERVICE: 07/23/2020 SUBJECTIVE: The patient was seen and examined in the ICU, has remained intubated, nonverbal, and not responding. OBJECTIVE: GENERAL: This is a thin built female, in ICU, intubated. VITAL SIGNS: Temperature 97.9, pulse 82, respiratory rate 14, blood pressure 118/70. HEENT: Intubated. CV: S1 and S2, heard. RESPIRATORY: Clear. GI: Abdomen is soft. MUSCULOSKELETAL: Gangrenous leg present. NEUROLOGIC: Intubated. LABORATORY DATA: Sodium 152, potassium 3.3, BUN is 76, and creatinine is 2.7. ASSESSMENT AND PLAN: 1. Acute kidney injury, stable. 2. Chronic kidney disease, stage 4. 3. Hypernatremia. Continue D5. 4. Lactic acidosis. 5. Anemia. 6. Hypoalbuminemia. Overall prognosis is very poor secondary ischemic ATN and ischemic process. She is having ischemic limbs also with a poor prognosis. I understand family is refusing to have PEG tube, and condition is very poor and prognosis also remains poor. We will continue on D5W for now. Continue discussion with the family for goals of care. Job ID: [id number]
--- NOTE | 2020-07-23 14:11 | PDOC.PALPN ---
Palliative Progress Note - Subjective intubated with mechanical ventilation, non purposeful response. - Objective Vital Signs: Vital Signs - Most Recent Temp Pulse Resp BP Pulse Ox 97.9 F 82 12 94/56 L 100 07/23/20 12:00 07/23/20 11:50 07/23/20 12:00 07/22/20 14:26 07/23/20 08:02 - Physical Exam Constitutional: cachectic, emaciated, ill appearing Respiratory: unlabored breathing Deviation from normal: mechanical ventilation Cardiovascular: RRR Gastrointestinal: incontinent Genitourinary: espinosa catheter Musculoskeletal: diffuse muscle atrophy, muscle wasting Skin: fragile, friable Deviation from normal: Gangrene to lower ext, wound to buttock / wounds in wound photos Deviation from normal: encephalopathic - Assessment (1) Dementia Code(s): F03.90 - UNSPECIFIED DEMENTIA WITHOUT BEHAVIORAL DISTURBANCE Current Visit: Yes Status: Acute (2) Malnutrition Code(s): E46 - UNSPECIFIED PROTEIN-CALORIE MALNUTRITION Current Visit: Yes Status: Acute (3) COPD (chronic obstructive pulmonary disease) Current Visit: No Status: Acute (4) COVID-19 Code(s): U07.1 - COVID-19 Current Visit: No Status: Acute (5) Ischemia of right lower extremity Code(s): I99.8 - OTHER DISORDER OF CIRCULATORY SYSTEM Current Visit: No Status: Acute (6) Metabolic encephalopathy Code(s): G93.41 - METABOLIC ENCEPHALOPATHY Current Visit: No Status: Acute - Plan Plan: Despite poor prognosis, family continues to request supportive care. No amputation, PEG. Communicated with Ruth, they are attempting to have Mrs Krishna son who lives in a skilled nursing come see his mother. It was offered that if that is not possible Palliative Care can assist with use of Ipads for the son to see and talk to his mother. Palliative Care continues to offer education in relation to care verses harm and poor outcome of CPR if indicated. [20] minutes spent on this encounter with >50% of the time in counseling and coordination of care. - ROS Non Response: due to endotracheal tube, due to mental status
--- NOTE | 2020-07-23 18:09 | PRG ---
DATE OF SERVICE: 07/23/2020 SUBJECTIVE: Aidee Fuentes remains mechanically ventilated. This morning, I turned the ventilatory rate down to a rate of 4 and she breathes 4. She does not make any effort to spontaneously breathe. She will open her eyes, but that is it. She does not have much of a cough or gag. OBJECTIVE: LUNGS: Clear. HEART: Regular rhythm. ABDOMEN: Soft. EXTREMITIES: Unchanged. IMPRESSION: Combination of dry and wet gangrene with no therapeutic options. An amputation absolutely will not heal, given her malnutrition. She is not weanable from mechanical ventilation unless she is a DNR and the plan is for comfort care. In my opinion, this is a terrible situation, where family will not face the reality of the terminal nature of Ms. Fuentes's situation. Job ID: [id number]
--- NOTE | 2020-07-23 19:56 | PDOC.HOSPP ---
- Subjective Encounter Date: 07/23/20 Encounter Time: 11:00 non-verbal Subjective: Patient seen and examined for severe sepsis with respiratory failure. Remains on mechanical ventilation without sedation. No other overnight events. On Levophed. - Objective Vital Signs & Weight: Vital Signs (12 hours) Temp Pulse Resp BP Pulse Ox 07/23/20 16:00 12 07/23/20 15:41 88 110/67 07/23/20 14:00 12 07/23/20 12:00 97.9 F 12 07/23/20 11:50 82 07/23/20 10:00 12 07/23/20 09:00 12 07/23/20 08:02 100 07/23/20 08:00 98.7 F Weight Admit Weight 91 lb Weight 98 lb 5.219 oz Most Recent Monitor Data Heart Rate from ECG 80 NIBP 100/60 NIBP BP-Mean 73 Respiration from ECG 12 SpO2 100 I&O: 07/22/20 07/23/20 07/24/20 06:59 06:59 06:59 Intake Total 2223 3610 929 Output Total 55 218 58 Balance 2168 3392 871 Result Diagrams: 07/23/20 06:20 07/23/20 06:20 Additional Labs: Accuchecks 07/23/20 07/23/20 07/23/20 16:21 11:29 04:50 POC Glucose 84 149 H 225 H 07/22/20 22:15 POC Glucose 235 H Laboratory Tests 07/23/20 07/23/20 06:20 06:20 Serum Osmolality 340 H* Lactic Acid 4.7 H* Radiology Reviewed by me: Yes (Chest x-rayno new changes) EKG Reviewed by me: Yes (Sinus rhythm) Hospitalist ROS - Review of Systems ROS unobtainable: due to mental status - Medication Medications: Active Medications Generic Name Dose Route Start Last Admin Trade Name Freq PRN Reason Stop Dose Admin Famotidine 20 mg 07/22/20 09:00 07/23/20 08:11 Pepcid SLOW IVP Not Given DAILY JOSE Famotidine 20 mg 07/22/20 09:00 07/23/20 09:23 Pepcid PO 20 mg DAILY JOSE Administration Folic Acid 1 mg 07/22/20 09:00 07/23/20 09:23 Folvite PER TUBE 1 mg BID JOSE Administration Hydrocortisone Sodium Succinate 100 mg 07/21/20 12:00 07/23/20 19:50 Solu-Cortef IVP 100 mg 0400,1200,2000 JOSE Administration Norepinephrine Bitartrate 250 mls @ 0 mls/hr 07/21/20 10:06 07/22/20 23:49 Levophed IVPB 250 mls PRN PRN Administration To maintain MAP > 65 Protocol Titrate Fentanyl Citrate 2,000 mcg/ 100 mls @ 0 mls/hr 07/21/20 10:21 07/21/20 21:00 Sodium Chloride IV 08/20/20 10:21 100 mls INF JOSE Administration Protocol Per Protocol Meropenem 1 gm/ Device 50 mls @ 100 mls/hr 07/21/20 21:00 07/23/20 09:23 IVPB 50 mls Q12HR JOSE Administration Dextrose/Water 1,000 mls @ 50 mls/hr 07/22/20 16:23 07/23/20 12:45 D5w IV Not Given .Q20H JOSE Insulin Human Regular 0 units 07/22/20 14:05 07/23/20 04:45 Humulin R SC 3 unit .MILD SLIDING SCALE PRN Administration Mild Correctional Scale - Exam General Appearance: NAD General - other findings: On mechanical ventilation Heart: RRR, no gallops, no rubs, diminshed peripheral pulses Respiratory: no wheezes, normal chest expansion, rhonchi Respiratory - other findings: On Mechanical ventilation Gastrointestinal: soft, no bruit, no guarding, no rigidity Extremities - other findings: Right lower extremity gangrene Neurological - other findings: psych/neuro exam limited due to current mentation Hosp A/P - Plan 1. Severe sepsis/septic shock with urinary tract infection and right lower extremity gangrene/ E coli bacteremia 2. Toxic metabolic encephalopathy. 3. Severe hypertonic hypernatremia with sodium 168 with serum osmolality 370/ severe dehydration 4. Lactic acidosis. 5. Recent COVID infection with persistent COVID positive test 6. Relative adrenal insufficiency. 7. Acute on chronic anemia. 8. Severe protein-calorie malnutrition. 9. Gastroesophageal reflux disease. 10. History of rheumatoid arthritis. 11. Dementia. 12. Chronic obstructive pulmonary disease. 13. Metabolic acidosis. 14. Hypokalemia 15. Severe protein calorie malnutritionPOA 16. coagulopathy with thrombocytopenia due to sepsis PLAN: 07/23 Continue pressors. Change meropenem to ceftriaxone. Continue vancomycin with vancomycin level monitoring. Continue mechanical ventilation. Case discussed with Dr. Louis and patient's daughter Ruth. Relative care input appreciated. Heparin on hold due to severe anemia. 07/22 Change IV fluid to D5 water per nephrology recommendation. Transfuse 2 units of PRBC. Continue empiric vancomycin with meropenem. Monitor vancomycin level. Continue low-dose Levophed with mechanical ventilation. Recheck lactic acid in a.m. A.m. labs. Family to discuss with Dr. Louis later today. Continue CCU monitoring. Hold heparin due to significant anemia. Continue stress dose steroid.
[2020-07-23] MEDS ORDERED: cefTRIAXone\\ROCEPHIN 2 GM in Sodium Chloride 0.9% 100 ML IVPB SCH (20:00)
[2020-07-23] MEDS: cefTRIAXone\\ROCEPHIN 1 GM in Sodium Chloride 0.9% 100 ML IVPB SCH (20:08)
[2020-07-23] MEDS: Dextrose 50% Abboject 50 ML SYRINGE SLOW IVP PRN (22:10)
[2020-07-24] MEDS: Hydrocortisone Sod Succ/PF 100 mg/2 ml Vial IVP SCH ×3 (04:23→20:03)
[2020-07-24 05:05] LABS: Hemoglobin 9.3 g/dL (12.0-16.0); Mean Corpuscular HGB CONC 32.2 g/dL (32.0-36.0); Mean Corpuscular Hemoglobin 29.2 pg (27.0-31.0); Mean Corpuscular Volume 90.7 fL (78.0-98.0); Mean Platelet Volume 11.5 fL (7.4-10.4); Platelet Count 47 thou/uL (130-400); RBC Distribution Width 14.5 % (11.5-14.5); Red Blood Cell (RBC) Count 3.18 mill/uL (4.20-5.40); White Blood Cell (WBC) Count 9.3 thou/uL (4.8-10.8)
[2020-07-24 05:06] LABS: Band 20 % (5-11); Lymphocytes 10 % (21-51); MDiff Complete? YES; Metamyelocyte 2 % (0-0); Monocytes 5 % (0-10); Myelocyte 4 % (0-0); Neutrophil 59 % (42-75); Platelet Morphology Comment Appears Decreased
[2020-07-24 05:09] LABS: Lactic Acid 4.7 mmol/L (0.5-2.2)
[2020-07-24 05:13] LABS: ALT (SGPT) 7 U/L (8-55); AST (SGOT) 22 U/L (5-34); Albumin 1.7 g/dL (3.4-4.8); Alkaline Phosphatase 110 U/L (40-110); Anion Gap 17 mmol/L (10-20); BUN (Urea Nitrogen) 75 mg/dL (9.8-20.1); Bilirubin, Total 0.2 mg/dL (0.2-1.2); Calc. Creatinine Clearance 13 mL/min (70-130); Calcium 6.7 mg/dL (7.8-10.44); Carbon Dioxide 21 mmol/L (23-31); Chloride 111 mmol/L (98-107); Estimated GFR-MDRD 21; Glucose 178 mg/dL (83-110); Potassium 3.3 mmol/L (3.5-5.1); Protein, Total 4.7 g/dL (6.0-8.3); Sodium 146 mmol/L (136-145)
--- NOTE | 2020-07-24 07:57 | RAD ---
EXAM: Single view of the chest HISTORY: Ventilated patient with respiratory failure COMPARISON: 07/23/2020 FINDINGS: Single view of the chest shows a normal sized cardiomediastinal silhouette. The lines and tubes are unchanged in position. Scattered multifocal mixed infiltrates are seen in the lungs. There may be small bilateral pleural effusions. No acute osseous abnormality. IMPRESSION: Stable exam
[2020-07-24 08:35] LABS: Vancomycin, Random 24.7 ug/mL (See Comment)
[2020-07-24] MEDS: Folic Acid 1 MG TAB PER TUBE SCH ×2 (09:20→20:03)
[2020-07-24] MEDS: Famotidine 20 MG TAB PO SCH (09:20)
[2020-07-24] MEDS: Famotidine/PF 20 mg/2ml Vial SLOW IVP SCH (09:20)
[2020-07-24] MEDS: Insulin Regular 300 UNITS/3 ML VIAL SC PRN (10:57)
[2020-07-24] MEDS ORDERED: Potassium Chloride 40 MEQ in Sodium Chloride 0.9% 250 ML 250 ML IVPB SCH (11:15)
--- NOTE | 2020-07-24 13:01 | PRG ---
DATE OF SERVICE: 07/24/2020 SUBJECTIVE: Ms. Fuentes is exactly the same. OBJECTIVE: VITAL SIGNS: Heart rates in the 70s, blood pressure 114/65, respiratory rate basically per mechanical ventilation. LUNGS, HEART, ABDOMEN: Unchanged. EXTREMITIES: Unchanged. LABORATORY DATA: White count 9.3, hemoglobin 9.3, platelets 59,000. Sodium 146, potassium 3.3, chloride 111, bicarb 21, BUN 75, creatinine 2.67. IMPRESSION: 1. Multiorgan dysfunction associated with a leg. 2. Advanced dementia. 3. Acute on chronic kidney disease and severe intravascular volume depletion. It is chronic. 4. Probable coexistent aspiration pneumonitis with bilateral infiltrates seen on radiograph. This is a hopeless situation. Unfortunately, family at this point has not been willing to except that fact. She will clearly on the ventilator or shortly after extubation in my opinion. She is still full code. I do not feel comfortable extubating her. Given her current clinical situation situation as well. Job ID: [id number]
--- NOTE | 2020-07-24 14:40 | PDOC.HOSPP ---
- Subjective Encounter Date: 07/24/20 Encounter Time: 08:30 non-verbal Subjective: Patient seen and examined for respiratory failure with sepsis and acute kidney injury. Remains on mechanical ventilation without sedation. No other overnight events. Remains on Pressors. - Objective Vital Signs & Weight: Vital Signs (12 hours) Temp Pulse Resp BP Pulse Ox 07/24/20 14:00 16 07/24/20 13:48 96 113/64 07/24/20 13:00 97.7 F 07/24/20 12:00 95.0 F L 13 07/24/20 11:24 79 139/67 07/24/20 10:00 14 07/24/20 08:38 87 07/24/20 08:00 95.1 F L 15 100 07/24/20 06:00 12 07/24/20 04:00 97.8 F 12 Weight Admit Weight 91 lb Weight 102 lb 8.239 oz Most Recent Monitor Data Heart Rate from ECG 94 NIBP 113/91 NIBP BP-Mean 98 Respiration from ECG 9 SpO2 100 I&O: 07/23/20 07/24/20 07/25/20 06:59 06:59 06:59 Intake Total 3610 2011.6 100 Output Total 218 200 190 Balance 3392 1811.6 -90 Result Diagrams: 07/24/20 04:30 07/24/20 04:30 Additional Labs: Accuchecks 07/24/20 07/23/20 07/23/20 10:52 23:21 23:15 POC Glucose 160 H 248 H 148 H 07/23/20 07/23/20 22:13 16:21 POC Glucose 59 L* 84 Radiology Reviewed by me: Yes (Chest x-raybilateral infiltrate) EKG Reviewed by me: Yes (Sinus rhythm on telemetry) Hospitalist ROS - Review of Systems ROS unobtainable: due to mental status - Medication Medications: Active Medications Generic Name Dose Route Start Last Admin Trade Name Freq PRN Reason Stop Dose Admin Dextrose/Water 25 gm 07/22/20 14:05 07/23/20 22:10 Dextrose 50% SLOW IVP 25 gm PRN PRN Administration Hypoglycemia Famotidine 20 mg 07/22/20 09:00 07/24/20 09:20 Pepcid SLOW IVP Not Given DAILY JOSE Famotidine 20 mg 07/22/20 09:00 07/24/20 09:20 Pepcid PO 20 mg DAILY JOSE Administration Folic Acid 1 mg 07/22/20 09:00 07/24/20 09:20 Folvite PER TUBE 1 mg BID JOSE Administration Hydrocortisone Sodium Succinate 100 mg 07/21/20 12:00 07/24/20 10:59 Solu-Cortef IVP 100 mg 0400,1200,2000 JOSE Administration Norepinephrine Bitartrate 250 mls @ 0 mls/hr 07/21/20 10:06 07/22/20 23:49 Levophed IVPB 250 mls PRN PRN Administration To maintain MAP > 65 Protocol Titrate Fentanyl Citrate 2,000 mcg/ 100 mls @ 0 mls/hr 07/21/20 10:21 07/21/20 21:00 Sodium Chloride IV 08/20/20 10:21 100 mls INF JOSE Administration Protocol Per Protocol Dextrose/Water 1,000 mls @ 50 mls/hr 07/22/20 16:23 07/23/20 12:45 D5w IV Not Given .Q20H JOSE Ceftriaxone Sodium 1 gm/ 100 mls @ 200 mls/hr 07/23/20 20:00 07/23/20 20:08 Sodium Chloride IVPB 100 mls Q24HR JOSE Administration Potassium Chloride 40 meq/ 270 mls @ 67.5 mls/hr 07/24/20 11:15 07/24/20 12: 31 Sodium Chloride IVPB 07/24/20 15:14 270 mls NOW JOSE Administration Insulin Human Regular 0 units 07/22/20 14:05 07/24/20 10:57 Humulin R SC 2 unit .MILD SLIDING SCALE PRN Administration Mild Correctional Scale - Exam General Appearance: ill appearing Neck: supple, no JVD Heart: RRR, no gallops, no rubs, diminshed peripheral pulses Respiratory: no wheezes, no tachypnea, rales, rhonchi Respiratory - other findings: On mechanical ventilation Gastrointestinal: soft, non-tender, no guarding, no rigidity Extremities: no cyanosis, no clubbing Extremities - other findings: Right leg gangrene Psychiatric - other findings: Neuro/psychunable to assess due to current mentation Hosp A/P - Plan 1. Severe sepsis/septic shock with urinary tract infection and right lower extremity gangrene/ E coli UTI withbacteremia / Aspiration pneumonia 2. Toxic metabolic encephalopathy. 3. Severe hypertonic hypernatremia with sodium 168 with serum osmolality 370 due tosevere dehydration 4. Lactic acidosis. 5. Recent COVID infection with persistent COVID positive test 6. Relative adrenal insufficiency. 7. Acute on chronic anemia. 8. Severe protein-calorie malnutrition. 9. Gastroesophageal reflux disease. 10. History of rheumatoid arthritis. 11. Dementia. 12. Chronic obstructive pulmonary disease. 13. Metabolic acidosis. 14. Hypokalemia. 15. Coagulopathy with thrombocytopenia due to sepsis. 16. Dementia. PLAN: 07/24 Continue IV ceftriaxone with vancomycin. Continue D5 water. Continue Mechanical ventilation. Case discussed with nephrology and palliative care. Heparin on hold due to severe anemia with thrombocytopenia. Continue stress dose steroid. Continue other medications. Start tube feeding 07/23 Continue pressors. Change meropenem to ceftriaxone. Continue vancomycin with vancomycin level monitoring. Continue mechanical ventilation. Case discussed with Dr. Louis and patient's daughter Ruth. Critical care input appreciated. Heparin on hold due to severe anemia. 07/22 Change IV fluid to D5 water per nephrology recommendation. Transfuse 2 units of PRBC. Continue empiric vancomycin with meropenem. Monitor vancomycin level. Continue low-dose Levophed with mechanical ventilation. Recheck lactic acid in a.m. A.m. labs. Family to discuss with Dr. Louis later today. Continue CCU monitoring. Hold heparin due to significant anemia. Continue stress dose steroid.
--- NOTE | 2020-07-24 15:35 | PRG ---
DATE OF SERVICE: 07/24/2020 SUBJECTIVE: The patient was seen ad examined in ICU. She remains intubated and nonverbal. Now, family members at the bedside. She remains intubated. OBJECTIVE: GENERAL: She remains intubated. VITAL SIGNS: Temperature 97.7, pulse 94, respiratory rate 9, and blood pressure 113/91. HEENT: Intubated. CV: S1 and S2 heard. RESPIRATORY: Clear. GASTROINTESTINAL: Abdomen is soft. MUSCULOSKELETAL: No edema. NEUROLOGICAL: Not responding. LABORATORY DATA: Sodium 146, potassium 3.3, bicarb 21, BUN is 75, and creatinine is 2.6. ASSESSMENT AND PLAN: 1. Acute kidney injury on chronic kidney disease, stage 4. getting any better. 2. Hypernatremia, on D5W. 3. Anemia. 4. Hypoalbuminemia. 5. Acute hypoxic respiratory failure. 6. Ischemic limb. 7. Peripheral vascular disease. 8. Lactic acidosis. Prognosis remain poor with multiorgan failure and ischemic process going on. Continue discussion . Job ID: [id number]
[2020-07-24] MEDS: Dextrose 5% in Water 1,000 ML IV SCH (15:52)
--- NOTE | 2020-07-24 16:27 | PDOC.PALPN ---
Palliative Progress Note - Subjective Remains intubated with mechanical ventilation. Responds to stimuli - Objective Vital Signs: Vital Signs - Most Recent Temp Pulse Resp BP Pulse Ox 97.7 F 92 12 113/64 100 07/24/20 13:00 07/24/20 15:21 07/24/20 15:47 07/24/20 13:48 07/24/20 08:00 - Physical Exam Constitutional: cachectic, emaciated, ill appearing HEENT: moist MMs Respiratory: unlabored breathing Cardiovascular: RRR Gastrointestinal: soft, positive bowel sounds Musculoskeletal: diffuse muscle atrophy, muscle wasting Skin: fragile, friable Deviation from normal: Gangrene right lower extremity, wound to buttock Deviation from normal: encephalopathic - Assessment (1) Dementia Code(s): F03.90 - UNSPECIFIED DEMENTIA WITHOUT BEHAVIORAL DISTURBANCE Current Visit: Yes Status: Acute (2) Malnutrition Code(s): E46 - UNSPECIFIED PROTEIN-CALORIE MALNUTRITION Current Visit: Yes Status: Acute (3) COPD (chronic obstructive pulmonary disease) Current Visit: No Status: Acute (4) COVID-19 Code(s): U07.1 - COVID-19 Current Visit: No Status: Acute (5) Ischemia of right lower extremity Code(s): I99.8 - OTHER DISORDER OF CIRCULATORY SYSTEM Current Visit: No Status: Acute (6) Metabolic encephalopathy Code(s): G93.41 - METABOLIC ENCEPHALOPATHY Current Visit: No Status: Acute - Plan Plan: Spoke to Ruth patient daughter today, the plan had been for her brother ( patient son that resides in the correction) to come visit. She relayed no one is coming to visit today. The family plans on coming Tuesday to discuss care. Revisited DNAR status and poor meaningful recovery if any further measures were needed to sustain life. Revisited grave condition. Ruth requested that we do not bring up resuscitation status or comfort measures until Tuesday when the family comes. Discussed with Frantz LINO caring for patient Relayed to Dr Devries as well. [25] minutes spent on this encounter with >50% of the time in counseling and coordination of care. - ROS Non Response: due to endotracheal tube, due to mental status
[2020-07-24] MEDS: Norepinephrine 8 MG/0.9% NS 250 ML IVPB PRN ×2 (18:13→20:02)
--- NOTE | 2020-07-24 18:25 | PRG ---
DATE OF SERVICE: 07/24/2020 SUBJECTIVE: Ms. Fuentes continues to intubate as she is on low-dose Levophed. Family was supposed to come here to discuss advanced directives and further management options, but they have not, they have postponed it to Tuesday. OBJECTIVE: VITAL SIGNS: T-max 97.7, blood pressure 114/59, pulse 86, O2 saturation 100%. GENERAL: Foul odor emanating from the right lower extremity even despite of the dressings, and according to the nurse, the skin is necrotic and with obvious gas in the soft tissues. She is cachectic. She is not sedated, but is not responsive at this time except for grimacing when I try to open her eyes. Oral tracheal intubation. LUNGS: Symmetric air entry. HEART: S1 and S2. Regular rate. No murmurs. ABDOMEN: scaphoid. LABORATORY DATA: White cell count is 9.3, hemoglobin 9.2, platelets 47,000, 20% bands. Escherichia coli has a broad susceptibility profile. ASSESSMENT AND DISCUSSION: Peripheral vascular disease, Alzheimer's versus vascular dementia, severe neurological impairment, chronic peripheral vascular disease with dry gangrene in right foot and wet gangrene in the remainder of the extremities, sepsis, altered mental status. There is no hope for survival here and again the interventions are futile at this point. The right approach would be a hospice care as already discussed by the other members of the team. Job ID: [id number] MTDD
[2020-07-24] MEDS: cefTRIAXone\\ROCEPHIN 1 GM in Sodium Chloride 0.9% 100 ML IVPB SCH (20:02)
[2020-07-24] MEDS: Morphine 2 MG/ML VIAL SLOW IVP PRN (22:56)
[2020-07-25] MEDS: Dextrose 5% in Water 1,000 ML IV SCH (01:23)
[2020-07-25] MEDS: Hydrocortisone Sod Succ/PF 100 mg/2 ml Vial IVP SCH ×3 (03:26→20:05)
[2020-07-25] MEDS: Insulin Regular 300 UNITS/3 ML VIAL SC PRN ×3 (04:30→18:20)
[2020-07-25 04:46] LABS: ALT (SGPT) Less than 7 U/L (8-55); AST (SGOT) 15 U/L (5-34); Albumin 1.7 g/dL (3.4-4.8); Alkaline Phosphatase 121 U/L (40-110); Anion Gap 16 mmol/L (10-20); BUN (Urea Nitrogen) 76 mg/dL (9.8-20.1); Bilirubin, Total 0.2 mg/dL (0.2-1.2); Calc. Creatinine Clearance 13 mL/min (70-130); Carbon Dioxide 22 mmol/L (23-31); Chloride 107 mmol/L (98-107); Estimated GFR-MDRD 22; Glucose 166 mg/dL (83-110); Potassium 3.8 mmol/L (3.5-5.1); Protein, Total 4.7 g/dL (6.0-8.3); Sodium 141 mmol/L (136-145)
[2020-07-25 04:58] LABS: Platelet Count 28 thou/uL (130-400)
[2020-07-25 05:00] LABS: Band 33 % (5-11); Hypochromia SLIGHT = 6-15 cells (100X) (0-5/hpf); Lymphocytes 6 % (21-51); MDiff Complete? YES; Mean Corpuscular HGB CONC 32.2 g/dL (32.0-36.0); Mean Corpuscular Hemoglobin 29.3 pg (27.0-31.0); Mean Platelet Volume 14.3 fL (7.4-10.4); Metamyelocyte 2 % (0-0); Monocytes 9 % (0-10); Neutrophil 50 % (42-75); Platelet Morphology Comment Appears Decreased; RBC Distribution Width 14.5 % (11.5-14.5); Red Blood Cell (RBC) Count 3.05 mill/uL (4.20-5.40); White Blood Cell (WBC) Count 11.2 thou/uL (4.8-10.8)
--- NOTE | 2020-07-25 08:12 | RAD ---
EXAM: CHEST ONE VIEW HISTORY: Daily follow-up evaluation. Patient on ventilator. COMPARISON: 07/24/2020 FINDINGS: Endotracheal tube, nasogastric tube, and right-sided vascular catheter remain in place and similar in position. Cardiac silhouette is within normal limits. There is suggestion of small left pleural effusion. Hazy density is also seen at the right lung base which may represent pleural fluid layering posteriorly. Mild increase in perihilar interstitial opacities are seen with patchy parenchymal opacity in each midlung zone. Findings are overall similar to the prior exam and could be related to asymmetric pulmonary edema versus infectious process. There has been no significant interval change when compared to the prior exam. IMPRESSION: Overall stable chest.
[2020-07-25 08:17] LABS: Vancomycin, Random 23.5 ug/mL (See Comment)
[2020-07-25] MEDS: Folic Acid 1 MG TAB PER TUBE SCH ×2 (09:42→20:05)
[2020-07-25] MEDS: Famotidine 20 MG TAB PO SCH (09:42)
[2020-07-25] MEDS: Famotidine/PF 20 mg/2ml Vial SLOW IVP SCH (09:42)
[2020-07-25] MEDS: Dextrose 5 %-0.45 % NaCl 1,000 ML IV SCH ×2 (09:42→18:38)
--- NOTE | 2020-07-25 12:51 | PRG ---
DATE OF SERVICE: 07/25/2020 SUBJECTIVE: The patient was intubated. OBJECTIVE: GENERAL: Remains intubated. VITAL SIGNS: Temperature 97.7, pulse 73, respiratory rate 12, blood pressure 104/60. HEENT: Intubated. CVS: S1 and S2 heard. RESPIRATORY: Clear. MUSCULOSKELETAL: No edema. LABORATORY DATA: Potassium 3.8, BUN is 76, and creatinine is 2.5. ASSESSMENT AND PLAN: 1. Acute kidney injury on chronic kidney disease, stage 4, stable. 2. Hypernatremia, better. Continue free water. 3. Hypokalemia. 4. Ischemic limb and ischemic acute tubular necrosis. 5. Lactic acidosis. Prognosis guarded. Family is aware family meeting. Continue discussion for goals of care. The daughter updated at the bedside renal prognosis and overall prognosis. Job ID: [id number]
[2020-07-25 18:05] LABS: Band 36 % (5-11); Hemoglobin 9.4 g/dL (12.0-16.0); Lymphocytes 7 % (21-51); MDiff Complete? YES; Mean Corpuscular HGB CONC 31.7 g/dL (32.0-36.0); Mean Corpuscular Volume 91.3 fL (78.0-98.0); Monocytes 2 % (0-10); Neutrophil 55 % (42-75); Platelet Count 30 thou/uL (130-400); Platelet Morphology Comment Appears Decreased; RBC Distribution Width 14.5 % (11.5-14.5); RBC Morphology Normal; Red Blood Cell (RBC) Count 3.23 mill/uL (4.20-5.40); Toxic Granulation SLIGHT; Vacuoles SLIGHT; White Blood Cell (WBC) Count 14.6 thou/uL (4.8-10.8)
--- NOTE | 2020-07-25 19:16 | PRG ---
DATE OF SERVICE: 07/25/2020 SUBJECTIVE: Aidee Fuentes remains mechanically ventilated. There are no change at all in her exam. OBJECTIVE: VITAL SIGNS: She is afebrile. Vital signs remained unchanged. Platelets are 28,000, hemoglobin is 9, white count is 11.2, BUN 76, creatinine 2.5. IMPRESSION: Multiorgan dysfunction with advanced dementia and a leg as well as hypoalbuminemia and severe malnutrition as well as severe intravascular volume depletion on presentation. She cannot survive this in my opinion. The only saving jonnie is that she is not awake and aware. Family still refuses to apparently withdraw support in spite of multiple conversations by the nursing staff and the physicians caring for her. It would not be inappropriate in my opinion to consider instituting the [place] [employer] Act through the ethics committee. I have no other suggestions at this time. Job ID: [id number]
[2020-07-25] MEDS: cefTRIAXone\\ROCEPHIN 1 GM in Sodium Chloride 0.9% 100 ML IVPB SCH (20:06)
--- NOTE | 2020-07-25 23:27 | PDOC.HOSPP ---
- Subjective Encounter Date: 07/25/20 Encounter Time: 11:45 non-verbal Subjective: Remains on mechanical ventilation. On low-dose pressors. No significant overnight events. - Objective Vital Signs & Weight: Vital Signs (12 hours) Temp Pulse Resp BP Pulse Ox 07/25/20 22:00 12 07/25/20 20:00 12 98 07/25/20 19:00 97.6 F 07/25/20 18:00 12 07/25/20 16:04 97.5 F L 07/25/20 16:00 12 07/25/20 14:38 81 108/61 07/25/20 14:00 12 07/25/20 12:00 12 07/25/20 11:47 97.7 F Weight Admit Weight 91 lb Weight 102 lb 8.239 oz Most Recent Monitor Data Heart Rate from ECG 79 NIBP 120/70 NIBP BP-Mean 86 Respiration from ECG 13 SpO2 100 I&O: 07/24/20 07/25/20 07/26/20 06:59 06:59 06:59 Intake Total 2011.6 2608 1200 Output Total 200 500 161 Balance 1811.6 2108 1039 Result Diagrams: 07/25/20 16:21 07/25/20 04:15 Additional Labs: Accuchecks 07/25/20 07/25/20 07/25/20 22:18 15:57 04:20 POC Glucose 153 H 202 H 179 H Radiology Reviewed by me: Yes (Chest x-rayno significant change) EKG Reviewed by me: Yes (Sinus rhythm on telemetry) Hospitalist ROS - Review of Systems ROS unobtainable: due to mental status - Medication Medications: Active Medications Generic Name Dose Route Start Last Admin Trade Name Freq PRN Reason Stop Dose Admin Dextrose/Water 25 gm 07/22/20 14:05 07/23/20 22:10 Dextrose 50% SLOW IVP 25 gm PRN PRN Administration Hypoglycemia Famotidine 20 mg 07/22/20 09:00 07/25/20 09:42 Pepcid SLOW IVP Not Given DAILY JOSE Famotidine 20 mg 07/22/20 09:00 07/25/20 09:42 Pepcid PO 20 mg DAILY JOSE Administration Folic Acid 1 mg 07/22/20 09:00 07/25/20 20:05 Folvite PER TUBE 1 mg BID JOSE Administration Hydrocortisone Sodium Succinate 100 mg 08/31/20 12:00 07/25/20 20:05 Solu-Cortef IVP 100 mg 0400,1200,2000 JOSE Administration Norepinephrine Bitartrate 250 mls @ 0 mls/hr 07/21/20 10:06 07/24/20 20:02 Levophed IVPB 250 mls PRN PRN Administration To maintain MAP > 65 Protocol Titrate Fentanyl Citrate 2,000 mcg/ 100 mls @ 0 mls/hr 07/21/20 10:21 07/21/20 21:00 Sodium Chloride IV 08/20/20 10:21 100 mls INF JOSE Administration Protocol Per Protocol Ceftriaxone Sodium 1 gm/ 100 mls @ 200 mls/hr 07/23/20 20:00 07/25/20 20:06 Sodium Chloride IVPB 100 mls Q24HR JOSE Administration Dextrose/Sodium Chloride 1,000 mls @ 75 mls/hr 07/25/20 08:00 07/25/20 18:38 D5 1/2 Ns IV 1,000 mls .[id number] JOSE Administration Insulin Human Regular 0 units 07/22/20 14:05 07/25/20 18:20 Humulin R SC 2 unit .MILD SLIDING SCALE PRN Administration Mild Correctional Scale Lorazepam 2 mg 07/21/20 10:21 07/25/20 03:26 Ativan SLOW IVP 08/20/20 10:21 2 mg Q1H PRN Administration Breakthrough agitation Morphine Sulfate 2 mg 07/21/20 10:21 07/24/20 22:56 Morphine SLOW IVP 08/20/20 10:21 2 mg Q1H PRN Administration Breakthrough Pain/Agitation - Exam General Appearance: ill appearing Neck: supple, no JVD Heart: RRR, no gallops Respiratory: no wheezes, no ronchi Gastrointestinal: soft, normal bowel sounds, no guarding, no rigidity Extremities: no cyanosis Extremities - other findings: Right lower extremity gangrene Psychiatric - other findings: Exam limited due to current mentation Hosp A/P - Plan 1. Severe sepsis/septic shock with urinary tract infection and right lower extremity gangrene/ E coli UTI withbacteremia / Aspiration pneumonia 2. Toxic metabolic encephalopathy. 3. Severe hypertonic hypernatremia with sodium 168 with serum osmolality 370 due to severe dehydration 4. Lactic acidosis. 5. Recent COVID infection with persistent COVID positive test 6. Relative adrenal insufficiency. 7. Acute on chronic anemia. 8. Severe protein-calorie malnutrition. 9. Gastroesophageal reflux disease. 10. History of rheumatoid arthritis. 11. Dementia. 12. Chronic obstructive pulmonary disease. 13. Metabolic acidosis. 14. Hypokalemia. 15. Coagulopathy with thrombocytopenia due to sepsis. 16. Dementia. PLAN: 07/25 Continue IV antibiotics. Change IV fluids to D5 half NS. On mechanical ventilation. Heparin on hold due to significant thrombocytopenia. Recheck labs later today. Continue tube feeding. Continue stress dose steroid. Discussed with the familyfamily to make final decision on coming Tuesday. A.m. labs including lactic acid. 07/24 Continue IV ceftriaxone with vancomycin. Continue D5 water. Continue Mechanical ventilation. Case discussed with nephrology and palliative care. Heparin on hold due to severe anemia with thrombocytopenia. Continue stress dose steroid. Continue other medications. Start tube feeding 07/23 Continue pressors. Change meropenem to ceftriaxone. Continue vancomycin with vancomycin level monitoring. Continue mechanical ventilation. Case discussed with Dr. Louis and patient's daughter Ruth. Critical care input appreciated. Heparin on hold due to severe anemia. 07/22 Change IV fluid to D5 water per nephrology recommendation. Transfuse 2 units of PRBC. Continue empiric vancomycin with meropenem. Monitor vancomycin level. Continue low-dose Levophed with mechanical ventilation. Recheck lactic acid in a.m. A.m. labs. Family to discuss with Dr. Louis later today. Continue CCU monitoring. Hold heparin due to significant anemia. Continue stress dose steroid.
[2020-07-26] MEDS: Hydrocortisone Sod Succ/PF 100 mg/2 ml Vial IVP SCH ×3 (03:24→19:43)
[2020-07-26] MEDS: Insulin Regular 300 UNITS/3 ML VIAL SC PRN ×3 (04:13→16:29)
[2020-07-26 04:54] LABS: Hemoglobin 8.8 g/dL (12.0-16.0); Mean Corpuscular HGB CONC 30.3 g/dL (32.0-36.0); Mean Corpuscular Hemoglobin 27.6 pg (27.0-31.0); Mean Corpuscular Volume 91.3 fL (78.0-98.0); Mean Platelet Volume 13.6 fL (7.4-10.4); Platelet Count 27 thou/uL (130-400); RBC Distribution Width 14.4 % (11.5-14.5); Red Blood Cell (RBC) Count 3.19 mill/uL (4.20-5.40); White Blood Cell (WBC) Count 16.9 thou/uL (4.8-10.8)
[2020-07-26 05:03] LABS: Phosphorus 2.8 mg/dL (2.3-4.7)
[2020-07-26 05:14] LABS: Band 16 % (5-11); Lymphocytes 9 % (21-51); MDiff Complete? YES; Metamyelocyte 3 % (0-0); Monocytes 5 % (0-10); Neutrophil 67 % (42-75); Platelet Morphology Comment Appears Decreased; RBC Morphology Normal
[2020-07-26 05:17] LABS: Lactic Acid 1.9 mmol/L (0.5-2.2)
[2020-07-26 05:20] LABS: ALT (SGPT) Less than 7 U/L (8-55); AST (SGOT) 18 U/L (5-34); Albumin 1.8 g/dL (3.4-4.8); Alkaline Phosphatase 165 U/L (40-110); Anion Gap 15 mmol/L (10-20); BUN (Urea Nitrogen) 82 mg/dL (9.8-20.1); Bilirubin, Total 0.2 mg/dL (0.2-1.2); Calc. Creatinine Clearance 13 mL/min (70-130); Calcium 7.4 mg/dL (7.8-10.44); Carbon Dioxide 23 mmol/L (23-31); Chloride 104 mmol/L (98-107); Estimated GFR-MDRD 22; Globulin 3.1 g/dL (2.4-3.5); Glucose 243 mg/dL (83-110); Magnesium 1.8 mg/dL (1.6-2.6); Protein, Total 4.9 g/dL (6.0-8.3); Sodium 139 mmol/L (136-145)
[2020-07-26 05:34] LABS: Potassium 2.8 mmol/L (3.5-5.1)
[2020-07-26] MEDS ORDERED: Potassium Chloride 20 MEQ in Premix Bag 1 BAG IVPB SCH (06:00)
[2020-07-26 08:16] LABS: Vancomycin, Random 19.6 ug/mL (See Comment)
[2020-07-26] MEDS: Dextrose 5 %-0.45 % NaCl 1,000 ML IV SCH ×2 (08:58→12:08)
[2020-07-26] MEDS: Famotidine/PF 20 mg/2ml Vial SLOW IVP SCH (08:58)
[2020-07-26] MEDS: Folic Acid 1 MG TAB PER TUBE SCH ×2 (09:12→21:10)
[2020-07-26] MEDS ORDERED: Potassium Chloride 20 MEQ/100 ML PREMIX BAG IVPB PRN (09:44)
[2020-07-26] MEDS ORDERED: Vancomycin HCl 500 MG in Sodium Chloride 0.9% 100 ML IVPB SCH (12:00)
[2020-07-26] MEDS: Famotidine 20 MG TAB PO SCH (12:09)
--- NOTE | 2020-07-26 13:04 | PRG ---
DATE OF SERVICE: 07/26/2020 SUBJECTIVE: The patient was seen and examined in ICU, intubated. OBJECTIVE: GENERAL: Intubated. VITAL SIGNS: Temperature 98.4, pulse 92, respiratory rate 12, blood pressure 97/60. HEENT: Intubated. CV: S1 and S2 heard. RESPIRATORY: Clear. MUSCULOSKELETAL: No edema. Ischemic limb. NEUROLOGIC: Not responding. LABORATORY DATA: Sodium 139, potassium 2.8, BUN is 82, creatinine is 2.5. ASSESSMENT AND PLAN: 1. Acute kidney injury on chronic kidney disease, stage 4, stable. 2. Hypernatremia with hyperchloremia secondary to dehydration, getting better. 3. Ischemic limb with ischemic ATN. 4. Lactic acidosis. 5. Hypokalemia, replace. Still awaiting decision from the family. Prognosis remains poor. Labs are better with hydration. We will follow. Job ID: [id number]
--- NOTE | 2020-07-26 14:26 | PRG ---
DATE OF SERVICE: 07/26/2020 SUBJECTIVE: Ms. Fuentes is in no distress. OBJECTIVE: VITAL SIGNS: Heart rate is 92, blood pressure 108/56, respiratory rate LABORATORY DATA: Platelets . Electrolytes are unchanged. Potassium is 2.8, creatinine is 2.5. IMPRESSION: 1. Gangrene. 2. Multiorgan dysfunction. 3. Advanced dementia with very limited ability to breathe. She is probably a chronic hypoventilator with her dementia. There are no therapeutic options. The only issue at hand is when family will be willing to withdraw support. This is truly a hopeless situation. Job ID: [id number]
[2020-07-26] MEDS: Morphine 2 MG/ML VIAL SLOW IVP PRN (14:54)
[2020-07-26] MEDS: cefTRIAXone\\ROCEPHIN 1 GM in Sodium Chloride 0.9% 100 ML IVPB SCH (19:43)
--- NOTE | 2020-07-26 20:33 | PDOC.HOSPP ---
- Subjective Encounter Date: 07/26/20 Encounter Time: 13:00 Subjective: Patient seen and examined for sepsis/septic shock with respiratory failure. Remains on mechanical ventilation with low-dose pressors. Not tolerating tube feeds due to high residual per RN. Also had 2 episodes of diarrhea. - Objective Vital Signs & Weight: Vital Signs (12 hours) Temp Pulse Resp BP 07/26/20 20:00 12 07/26/20 19:02 89 89/60 L 07/26/20 19:00 97.7 F 07/26/20 18:00 12 07/26/20 16:00 98.3 F 111 H 12 07/26/20 14:01 90 110/72 07/26/20 14:00 12 07/26/20 12:00 98.0 F 14 07/26/20 10:39 92 108/56 L 07/26/20 10:00 14 Weight Admit Weight 91 lb Weight 102 lb 8.239 oz Most Recent Monitor Data Heart Rate from ECG 82 NIBP 99/56 NIBP BP-Mean 70 Respiration from ECG 12 SpO2 98 I&O: 07/25/20 07/26/20 07/27/20 06:59 06:59 06:59 Intake Total 2608 2723 867.7 Output Total 500 214 155 Balance 2108 2509 712.7 Result Diagrams: 07/26/20 04:00 07/26/20 15:49 Additional Labs: Accuchecks 07/26/20 07/26/20 07/26/20 16:33 13:47 10:29 POC Glucose 181 H 200 H 218 H 07/26/20 07/25/20 04:08 22:18 POC Glucose 226 H 153 H EKG Reviewed by me: Yes (Sinus rhythm on telemetry) Hospitalist ROS - Review of Systems ROS unobtainable: due to endotracheal tube - Medication Medications: Active Medications Generic Name Dose Route Start Last Admin Trade Name Freq PRN Reason Stop Dose Admin Dextrose/Water 25 gm 07/22/20 14:05 07/23/20 22:10 Dextrose 50% SLOW IVP 25 gm PRN PRN Administration Hypoglycemia Famotidine 20 mg 07/22/20 09:00 07/26/20 08:58 Pepcid SLOW IVP 20 mg DAILY JOSE Administration Famotidine 20 mg 07/22/20 09:00 07/26/20 12:09 Pepcid PO Not Given DAILY JOES Folic Acid 1 mg 07/22/20 09:00 07/26/20 09:12 Folvite PER TUBE 1 mg BID JOSE Administration Hydrocortisone Sodium Succinate 100 mg 07/21/20 12:00 07/26/20 19:43 Solu-Cortef IVP 100 mg 0400,1200,2000 JOSE Administration Norepinephrine Bitartrate 250 mls @ 0 mls/hr 07/21/20 10:06 07/24/20 20:02 Levophed IVPB 250 mls PRN PRN Administration To maintain MAP > 65 Protocol Titrate Fentanyl Citrate 2,000 mcg/ 100 mls @ 0 mls/hr 07/21/20 10:21 07/21/20 21:00 Sodium Chloride IV 08/20/20 10:21 100 mls INF JOSE Administration Protocol Per Protocol Ceftriaxone Sodium 1 gm/ 100 mls @ 200 mls/hr 07/23/20 20:00 07/26/20 19:43 Sodium Chloride IVPB 100 mls Q24HR JOSE Administration Dextrose/Sodium Chloride 1,000 mls @ 50 mls/hr 07/26/20 11:13 07/26/20 12:08 D5 1/2 Ns IV Not Given .Q20H JOSE Insulin Human Regular 0 units 07/22/20 14:05 07/26/20 16:29 Humulin R SC 2 unit .MILD SLIDING SCALE PRN Administration Mild Correctional Scale Lorazepam 2 mg 07/21/20 10:21 07/25/20 03:26 Ativan SLOW IVP 08/20/20 10:21 2 mg Q1H PRN Administration Breakthrough agitation Morphine Sulfate 2 mg 07/21/20 10:21 07/26/20 14:54 Morphine SLOW IVP 08/20/20 10:21 2 mg Q1H PRN Administration Breakthrough Pain/Agitation - Exam General Appearance: ill appearing Neck: supple, no JVD Heart: RRR, no gallops Respiratory: no wheezes, rales, rhonchi Gastrointestinal: soft, no guarding, no rigidity Neurological - other findings: Exam limited due to current mentation Hosp A/P - Plan 1. Severe sepsis/septic shock with urinary tract infection and right lower extremity gangrene/ E coli UTI with bacteremia / Aspiration pneumonia 2. Toxic metabolic encephalopathy. 3. Severe hypertonic hypernatremia with sodium 168 with serum osmolality 370 due to severe dehydration 4. Lactic acidosis. 5. Recent COVID infection 6. Relative adrenal insufficiency. 7. Acute on chronic anemia. 8. Severe protein-calorie malnutrition. 9. Gastroesophageal reflux disease. 10. History of rheumatoid arthritis. 11. Dementia. 12. Chronic obstructive pulmonary disease. 13. Metabolic acidosis. 14. Hypokalemia/hypomagnesemia 15. Coagulopathy with thrombocytopenia due to sepsis. 16. Dementia. PLAN: 07/26 Continue IV ceftriaxone with vancomycin. Continue IV fluid with pressors. Continue stress dose steroid. Replace potassium. Rule out C. difficile. Family to make final decision tomorrow. Not on heparin or Lovenox due to thrombocytopenia. Lactic acid normal. Recheck labs in a.m. turn microphone off 07/25 Continue IV antibiotics. Change IV fluids to D5 half NS. On mechanical ventilation. Heparin on hold due to significant thrombocytopenia. Recheck labs later today. Continue tube feeding. Continue stress dose steroid. Discussed with the familyfamily to make final decision on coming Tuesday. A.m. labs including lactic acid. 07/24 Continue IV ceftriaxone with vancomycin. Continue D5 water. Continue Mechanical ventilation. Case discussed with nephrology and palliative care. Heparin on hold due to severe anemia with thrombocytopenia. Continue stress dose steroid. Continue other medications. Start tube feeding 07/23 Continue pressors. Change meropenem to ceftriaxone. Continue vancomycin with vancomycin level monitoring. Continue mechanical ventilation. Case discussed with Dr. Louis and patient's daughter Ruth. Critical care input appreciated. Heparin on hold due to severe anemia. 07/22 Change IV fluid to D5 water per nephrology recommendation. Transfuse 2 units of PRBC. Continue empiric vancomycin with meropenem. Monitor vancomycin level. Continue low-dose Levophed with mechanical ventilation. Recheck lactic acid in a.m. A.m. labs. Family to discuss with Dr. Louis later today. Continue CCU monitoring. Hold heparin due to significant anemia. Continue stress dose steroid.
[2020-07-27] MEDS: Hydrocortisone Sod Succ/PF 100 mg/2 ml Vial IVP SCH ×3 (03:12→21:20)
[2020-07-27] MEDS: Dextrose 5 %-0.45 % NaCl 1,000 ML IV SCH (04:53)
[2020-07-27 05:21] LABS: Phosphorus 2.7 mg/dL (2.3-4.7)
[2020-07-27 05:23] LABS: ALT (SGPT) Less than 7 U/L (8-55); AST (SGOT) 12 U/L (5-34); Albumin 1.8 g/dL (3.4-4.8); Alkaline Phosphatase 132 U/L (40-110); Anion Gap 14 mmol/L (10-20); BUN (Urea Nitrogen) 95 mg/dL (9.8-20.1); Bilirubin, Total 0.3 mg/dL (0.2-1.2); Calc. Creatinine Clearance 14 mL/min (70-130); Calcium 7.5 mg/dL (7.8-10.44); Carbon Dioxide 20 mmol/L (23-31); Chloride 105 mmol/L (98-107); Estimated GFR-MDRD 24; Globulin 2.9 g/dL (2.4-3.5); Glucose 193 mg/dL (83-110); Magnesium 1.7 mg/dL (1.6-2.6); Protein, Total 4.7 g/dL (6.0-8.3); Sodium 135 mmol/L (136-145)
[2020-07-27 05:39] LABS: Band 7 % (5-11); Hemoglobin 7.2 g/dL (12.0-16.0); Lymphocytes 2 % (21-51); MDiff Complete? YES; Mean Corpuscular HGB CONC 30.9 g/dL (32.0-36.0); Mean Corpuscular Hemoglobin 28.5 pg (27.0-31.0); Mean Corpuscular Volume 92.2 fL (78.0-98.0); Mean Platelet Volume 5.7 fL (7.4-10.4); Metamyelocyte 3 % (0-0); Neutrophil 88 % (42-75); Platelet Count 36 thou/uL (130-400); Platelet Morphology Comment Appears Decreased; RBC Morphology Normal; Red Blood Cell (RBC) Count 2.51 mill/uL (4.20-5.40); White Blood Cell (WBC) Count 18.6 thou/uL (4.8-10.8)
[2020-07-27] MEDS: Insulin Regular 300 UNITS/3 ML VIAL SC PRN (05:46)
[2020-07-27] MEDS: Famotidine 20 MG TAB PO SCH (08:13)
[2020-07-27] MEDS: Folic Acid 1 MG TAB PER TUBE SCH ×2 (08:13→21:20)
[2020-07-27] MEDS: Famotidine/PF 20 mg/2ml Vial SLOW IVP SCH (08:13)
--- NOTE | 2020-07-27 10:33 | PRG ---
DATE OF SERVICE: 07/27/2020 SUBJECTIVE: Aidee Fuentes is clinically unchanged. OBJECTIVE: VITAL SIGNS: Blood pressure 134/75, heart rate 68, respiratory rate is 11. LUNGS: Unchanged. HEART: Unchanged. ABDOMEN: Unchanged. EXTREMITIES: Unchanged. LABORATORY DATA: White count 18.6, hemoglobin 7.2, platelets 36. Sodium 135, potassium 4, chloride 105, bicarb 20, BUN 95, creatinine 2.34, glucose 193, albumin is 1.8. IMPRESSION: 1. Severe malnutrition. 2. Gangrenous leg. 3. Advanced dementia. 4. Respiratory failure secondary primarily to severe muscle weakness and clinical sepsis on presentation. She does not have any chance of any survival of any significant length of time. Withdrawal of care would be appropriate, is not indicated. Family apparently is going to the hospital again, although there have been months worth of family discussions and nobody has ever came to the appropriate decision in my opinion. Long-term ventilator hospital/detention versus [place] natural act institution are the only options in my opinion. Job ID: [id number]
--- NOTE | 2020-07-27 14:10 | PRG ---
DATE OF SERVICE: 07/27/2020 SUBJECTIVE: The patient remains in ICU, intubated, not responding. OBJECTIVE: VITAL SIGNS: Temperature 94.0, pulse 81, respiratory rate 16, blood pressure 133/75. HEENT: Atraumatic and normocephalic. CVS: S1 and S2 heard. RESPIRATORY: Clear. MUSCULOSKELETAL: Ischemic limb. NEUROLOGIC: Not responding. LABORATORY DATA: Sodium 135, potassium 4.0, BUN is 95, creatinine is 2.3. ASSESSMENT AND PLAN: 1. Acute kidney injury on chronic kidney disease, stable. 2. . 3. Hyperchloremia. 4. Ischemic limb. 5. Lactic acidosis. 6. Hypokalemia. 7. Altered mentation. 8. Acute hypoxic respiratory failure. The patient with no significant improvement. Labs are better with hydration and prognosis poor. Family is not available for discussion. I think the Critical Care Team is planning to have ethics committee involved if no family members show up today. Prognosis remains poor. Agree with current management. Job ID: [id number]
[2020-07-27] MEDS: Morphine 2 MG/ML VIAL SLOW IVP PRN (17:07)
--- NOTE | 2020-07-27 17:40 | PDOC.HOSPP ---
- Subjective Encounter Date: 07/27/20 Encounter Time: 11:00 Subjective: Patient seen and examined for sepsis with encephalopathy and respiratory failure. Remains on mechanical ventilation. Off pressors. - Objective Vital Signs & Weight: Vital Signs (12 hours) Temp Pulse Resp BP Pulse Ox 07/27/20 16:00 12 07/27/20 15:37 77 07/27/20 14:00 12 07/27/20 13:21 85 125/81 07/27/20 13:00 93.4 F L 07/27/20 12:00 12 07/27/20 10:58 80 156/71 H 07/27/20 10:00 12 07/27/20 08:00 94.0 F L 100 07/27/20 07:52 78 07/27/20 06:00 12 Weight Admit Weight 91 lb Weight 97 lb 3.582 oz Most Recent Monitor Data Heart Rate from ECG 83 NIBP 130/76 NIBP BP-Mean 98 Respiration from ECG 14 SpO2 100 I&O: 07/26/20 07/27/20 07/28/20 06:59 06:59 06:59 Intake Total 2723 1502.7 Output Total 214 328 120 Balance 2509 1174.7 -120 Result Diagrams: 07/28/20 04:00 07/28/20 04:00 Additional Labs: Accuchecks 07/27/20 07/26/20 10:21 21:18 POC Glucose 72 110 Microbiology 07/21/20 08:43 Urine espinosa catheter Urine Culture - Final Proteus mirabilis Escherichia coli 07/21/20 07:31 Venous blood - Neck Blood Culture - Final Escherichia coli 07/21/20 06:20 Venous blood - Left Arm Blood Culture - Final Escherichia coli 07/21/20 08:43 Urine espinosa catheter Urine Culture - Preliminary Gram Negative Freddy Presumptive Escherichia coli Laboratory Tests 07/27/20 07/27/20 04:42 04:42 Hgb 7.2 L Hct 23.2 L BUN 95 H Creatinine 2.34 H EKG Reviewed by me: Yes (Sinus rhythm on telemetry) Hospitalist ROS - Review of Systems ROS unobtainable: due to mental status - Medication Medications: Active Medications Generic Name Dose Route Start Last Admin Trade Name Freq PRN Reason Stop Dose Admin Dextrose/Water 25 gm 07/22/20 14:05 07/23/20 22:10 Dextrose 50% SLOW IVP 25 gm PRN PRN Administration Hypoglycemia Famotidine 20 mg 07/22/20 09:00 07/27/20 08:13 Pepcid SLOW IVP 20 mg DAILY JOSE Administration Famotidine 20 mg 07/22/20 09:00 07/27/20 08:13 Pepcid PO Not Given DAILY JOSE Folic Acid 1 mg 07/22/20 09:00 07/27/20 08:13 Folvite PER TUBE 1 mg BID JOSE Administration Hydrocortisone Sodium Succinate 100 mg 07/21/20 12:00 07/27/20 13:32 Solu-Cortef IVP 100 mg 0400,1200,2000 JOSE Administration Norepinephrine Bitartrate 250 mls @ 0 mls/hr 07/21/20 10:06 07/24/20 20:02 Levophed IVPB 250 mls PRN PRN Administration To maintain MAP > 65 Protocol Titrate Fentanyl Citrate 2,000 mcg/ 100 mls @ 0 mls/hr 07/21/20 10:21 07/21/20 21:00 Sodium Chloride IV 08/20/20 10:21 100 mls INF JOSE Administration Protocol Per Protocol Ceftriaxone Sodium 1 gm/ 100 mls @ 200 mls/hr 07/23/20 20:00 07/26/20 19:43 Sodium Chloride IVPB 100 mls Q24HR JOSE Administration Dextrose/Sodium Chloride 1,000 mls @ 50 mls/hr 07/26/20 11:13 07/27/20 04:53 D5 1/2 Ns IV 1,000 mls .Q20H JOSE Administration Insulin Human Regular 0 units 07/22/20 14:05 07/27/20 05:46 Humulin R SC 2 unit .MILD SLIDING SCALE PRN Administration Mild Correctional Scale Lorazepam 2 mg 07/21/20 10:21 07/25/20 03:26 Ativan SLOW IVP 08/20/20 10:21 2 mg Q1H PRN Administration Breakthrough agitation Morphine Sulfate 2 mg 07/21/20 10:21 07/27/20 17:07 Morphine SLOW IVP 08/20/20 10:21 2 mg Q1H PRN Administration Breakthrough Pain/Agitation - Exam General Appearance: ill appearing General - other findings: On mechanical ventilation Heart: RRR, no gallops Respiratory: no wheezes, no ronchi Gastrointestinal: soft, no guarding, no rigidity Extremities: no cyanosis Psychiatric: lethargic Hosp A/P - Plan 1. Severe sepsis/septic shock with urinary tract infection and right lower extremity gangrene/ E coli UTI with bacteremia / Aspiration pneumonia 2. Toxic metabolic encephalopathy. 3. Severe hypertonic hypernatremia with sodium 168 with serum osmolality 370 due to severe dehydration 4. Lactic acidosis. 5. Recent COVID infection 6. Relative adrenal insufficiency. 7. Acute on chronic anemia. 8. Severe protein-calorie malnutrition. 9. Gastroesophageal reflux disease. 10. History of rheumatoid arthritis. 11. Dementia. 12. Chronic obstructive pulmonary disease. 13. Metabolic acidosis. 14. Hypokalemia/hypomagnesemia 15. Coagulopathy with thrombocytopenia due to sepsis. 16. Dementia. PLAN: 07/27 Continue IV ceftriaxone with current IV fluids. Sodium is improved. Continue stress dose steroid. C. difficile negative. Updatehad extensive discussion with family. There were total of 11 family members who came by to see the patient in small groups. Family to make final decision once everyone sees the patient. 07/26 Continue IV ceftriaxone with vancomycin. Continue IV fluid with pressors. Continue stress dose steroid. Replace potassium. Rule out C. difficile. Family to make final decision tomorrow. Not on heparin or Lovenox due to thrombocytopenia. Lactic acid normal. Recheck labs in a.m. 07/25 Continue IV antibiotics. Change IV fluids to D5 half NS. On mechanical ventilation. Heparin on hold due to significant thrombocytopenia. Recheck labs later today. Continue tube feeding. Continue stress dose steroid. Discussed with the familyfamily to make final decision on coming Tuesday. A.m. labs including lactic acid. 07/24 Continue IV ceftriaxone with vancomycin. Continue D5 water. Continue Mechanical ventilation. Case discussed with nephrology and palliative care. Heparin on hold due to severe anemia with thrombocytopenia. Continue stress dose steroid. Continue other medications. Start tube feeding 07/23 Continue pressors. Change meropenem to ceftriaxone. Continue vancomycin with vancomycin level monitoring. Continue mechanical ventilation. Case discussed with Dr. Louis and patient's daughter Ruth. Critical care input appreciated. Heparin on hold due to severe anemia. 07/22 Change IV fluid to D5 water per nephrology recommendation. Transfuse 2 units of PRBC. Continue empiric vancomycin with meropenem. Monitor vancomycin level. Continue low-dose Levophed with mechanical ventilation. Recheck lactic acid in a.m. A.m. labs. Family to discuss with Dr. Louis later today. Continue CCU monitoring. Hold heparin due to significant anemia. Continue stress dose steroid.
[2020-07-27] MEDS: cefTRIAXone\\ROCEPHIN 1 GM in Sodium Chloride 0.9% 100 ML IVPB SCH (21:19)
[2020-07-27] MEDS: Dextrose 50% Abboject 50 ML SYRINGE SLOW IVP PRN (22:14)
[2020-07-28] MEDS: Dextrose 5 %-0.45 % NaCl 1,000 ML IV SCH (04:10)
[2020-07-28] MEDS: Hydrocortisone Sod Succ/PF 100 mg/2 ml Vial IVP SCH ×3 (04:10→19:22)
[2020-07-28 04:40] LABS: Hemoglobin 5.9 g/dL (12.0-16.0); Mean Corpuscular HGB CONC 31.4 g/dL (32.0-36.0); Mean Corpuscular Hemoglobin 28.9 pg (27.0-31.0); Mean Platelet Volume 12.5 fL (7.4-10.4); Platelet Count 47 thou/uL (130-400); RBC Distribution Width 14.1 % (11.5-14.5); Red Blood Cell (RBC) Count 2.03 mill/uL (4.20-5.40); White Blood Cell (WBC) Count 19.2 thou/uL (4.8-10.8)
[2020-07-28 04:48] LABS: Band 34 % (5-11); Lymphocytes 3 % (21-51); MDiff Complete? YES; Monocytes 1 % (0-10); Neutrophil 62 % (42-75); Platelet Morphology Comment Appears Decreased
[2020-07-28 04:54] LABS: ALT (SGPT) 7 U/L (8-55); AST (SGOT) 13 U/L (5-34); Albumin 1.7 g/dL (3.4-4.8); Alkaline Phosphatase 120 U/L (40-110); Anion Gap 14 mmol/L (10-20); BUN (Urea Nitrogen) 96 mg/dL (9.8-20.1); Bilirubin, Total 0.3 mg/dL (0.2-1.2); Calc. Creatinine Clearance 14 mL/min (70-130); Calcium 7.5 mg/dL (7.8-10.44); Carbon Dioxide 20 mmol/L (23-31); Chloride 104 mmol/L (98-107); Estimated GFR-MDRD 25; Globulin 2.8 g/dL (2.4-3.5); Glucose 199 mg/dL (83-110); Magnesium 1.7 mg/dL (1.6-2.6); Potassium 4.1 mmol/L (3.5-5.1); Protein, Total 4.5 g/dL (6.0-8.3); Sodium 134 mmol/L (136-145)
[2020-07-28 04:56] LABS: Phosphorus 3.3 mg/dL (2.3-4.7)
--- NOTE | 2020-07-28 09:11 | PRG ---
DATE OF SERVICE: 07/28/2020 30 minutes critical care time. SUBJECTIVE: The patient remains intubated on mechanical ventilation. The stents from her necrotic leg are almost too overwhelming for the people taking care of her. OBJECTIVE: VITAL SIGNS: Temperature 97.7, pulse 99, blood pressure 102/59, O2 saturation 100%. 24-hour intake 1233, output 245. HEENT: She has some bleeding on her tongue. NECK: No JVD. LUNGS: Coarse rhonchi. CARDIAC: S1, S2. Regular. ABDOMEN: Soft. EXTREMITIES: Necrotic right leg with dry gangrene. LABORATORY DATA: White blood cell count 19.2, hemoglobin 5.9, hematocrit 18.7, and platelet count 47. Sodium 134, potassium 4.1, chloride 104, CO2 of 20, BUN 96, creatinine 2.3, glucose 199. ASSESSMENT: 1. Severe malnutrition. 2. Gangrenous right leg. 3. Advanced dementia. 4. Respiratory failure, requiring mechanical ventilation. 5. Severe neuromuscular weakness. PLAN: I agree with the other consultants on this case that there is no reasonable hope for survival or returning to her previous state of conditioning. It is unreasonable to do anything, but compassionate/hospice care at this time. I believe Palliative Care is working through issues with family, but so far, those issue has been unsuccessful. I would agree that ethics committee probably needs to be convened and we probably need to move toward an acting [place] [employer]. Job ID: [id number]
[2020-07-28] MEDS: Famotidine/PF 20 mg/2ml Vial SLOW IVP SCH (09:16)
[2020-07-28] MEDS: Folic Acid 1 MG TAB PER TUBE SCH (09:16)
[2020-07-28] MEDS: Famotidine 20 MG TAB PO SCH (09:17)
[2020-07-28 10:21] LABS: Vancomycin, Random 21.3 ug/mL (See Comment)
[2020-07-28] MEDS ORDERED: Vancomycin HCl 500 MG in Sodium Chloride 0.9% 100 ML IVPB SCH (11:15)
[2020-07-28] MEDS ORDERED: Morphine 2 MG/ML VIAL SLOW IVP PRN (12:03)
[2020-07-28] MEDS ORDERED: Lorazepam 2 MG/ML VIAL SLOW IVP PRN (12:04)
[2020-07-28] MEDS ORDERED: DC Sedation Protocol FS ONE (12:04)
--- NOTE | 2020-07-28 12:19 | PRG ---
DATE OF SERVICE: 07/28/2020 SUBJECTIVE: This is a 79-year-old female, being seen for acute kidney injury. The patient is resting. PHYSICAL EXAMINATION: General: The patient is resting. Vital Signs: Afebrile, pulse 75, breathing at 16, blood pressure 94/56. HEENT: Head normocephalic and atraumatic. Eyes intact, no ulcers. Nose intact, no ulcers. Ears intact, no ulcers. Neck: Supple. No JVD. Chest: Symmetrical and clear. Cardiovascular: Shows S1 and S2, no rub, no murmur. Gastrointestinal: Abdomen is soft, bowel sounds positive. Extremities: Show no edema or ulcers. Skin: Shows no rash or petechiae. Musculoskeletal: Shows no joint swelling or stiffness. Genitourinary: Shows no Quintanilla or CVA tenderness. Neurologic: The patient is resting. LABORATORY DATA: Hemoglobin is 5.9. Potassium 4.1. ASSESSMENT AND PLAN: 1. Stage 4 chronic kidney disease with acute kidney injury, stable. 2. Hypotension probably because of sepsis. 3. Anemia. Would recommend transfusion. Overall, prognosis is poor. Job ID: [id number]
[2020-07-28 12:34] VITALS: BMI 20.3
[2020-07-28] MEDS ORDERED: Scopolamine 1.5 mg/72 hour Patch TD SCH (13:00)
--- NOTE | 2020-07-28 17:22 | PDOC.HOSPP ---
- Subjective Encounter Date: 07/28/20 Encounter Time: 14:00 Subjective: Patient seen and examined for sepsis with respiratory failure. Family at the bedside. No overnight events. Received 1 unit PRBC earlier today for hemoglobin of 5.9. No ongoing bleeding reported. - Objective Vital Signs & Weight: Vital Signs (12 hours) Temp Pulse Resp Pulse Ox 07/28/20 16:00 97.7 F 12 07/28/20 14:00 12 07/28/20 12:00 12 07/28/20 10:10 77 07/28/20 10:00 14 07/28/20 08:00 12 100 07/28/20 07:55 80 07/28/20 06:00 12 Weight Admit Weight 91 lb Weight 97 lb 3.582 oz Most Recent Monitor Data Heart Rate from ECG 85 NIBP 98/60 NIBP BP-Mean 72 Respiration from ECG 12 SpO2 100 I&O: 07/27/20 07/28/20 07/29/20 06:59 06:59 06:59 Intake Total 1502.7 1233 931 Output Total 328 245 160 Balance 1174.7 988 771 Result Diagrams: 07/28/20 04:00 07/28/20 04:00 EKG Reviewed by me: Yes (Sinus rhythm on telemetry) Hospitalist ROS - Review of Systems ROS unobtainable: due to mental status - Medication Medications: Active Medications Generic Name Dose Route Start Last Admin Trade Name Freq PRN Reason Stop Dose Admin Dextrose/Water 25 gm 07/22/20 14:05 07/27/20 22:14 Dextrose 50% SLOW IVP 25 gm PRN PRN Administration Hypoglycemia Norepinephrine Bitartrate 250 mls @ 0 mls/hr 07/21/20 10:06 07/24/20 20:02 Levophed IVPB 250 mls PRN PRN Administration To maintain MAP > 65 Protocol Titrate Insulin Human Regular 0 units 07/22/20 14:05 07/27/20 05:46 Humulin R SC 2 unit .MILD SLIDING SCALE PRN Administration Mild Correctional Scale Scopolamine 1.5 mg 07/28/20 13:00 07/28/20 17:00 Transderm Scop TD 1.5 mg Q3D JOSE Administration - Exam General Appearance: ill appearing General - other findings: On mechanical ventilation Heart: RRR, no gallops Respiratory: rales, rhonchi Gastrointestinal: soft, non-tender, normal bowel sounds Extremities: no edema Extremities - other findings: Right leg gangrene Psychiatric - other findings: Neuro/psych cannot obtain due to current mentation Hosp A/P (1) Severe sepsis with acute organ dysfunction Code(s): A41.9 - SEPSIS, UNSPECIFIED ORGANISM; R65.20 - SEVERE SEPSIS WITHOUT SEPTIC SHOCK Status: Acute (2) Septic shock Code(s): A41.9 - SEPSIS, UNSPECIFIED ORGANISM; R65.21 - SEVERE SEPSIS WITH SEPTIC SHOCK Status: Acute (3) Ischemia of right lower extremity Code(s): I99.8 - OTHER DISORDER OF CIRCULATORY SYSTEM Status: Acute (4) Aspiration pneumonia Code(s): J69.0 - PNEUMONITIS DUE TO INHALATION OF FOOD AND VOMIT Status: Acute (5) 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 coli UTI Code(s): N39.0 - URINARY TRACT INFECTION, SITE NOT SPECIFIED; B96.20 - UNSP ESCHERICHIA COLI THE CAUSE OF DISEASES CLASSD ELSWHR Status: Acute (8) Metabolic encephalopathy Code(s): G93.41 - METABOLIC ENCEPHALOPATHY Status: Acute (9) Adrenal insufficiency Code(s): E27.40 - UNSPECIFIED ADRENOCORTICAL INSUFFICIENCY Status: Acute (10) Anemia Code(s): D64.9 - ANEMIA, UNSPECIFIED Status: Acute (11) COPD (chronic obstructive pulmonary disease) Status: Acute (12) Coagulopathy Status: Acute (13) Dementia Code(s): F03.90 - UNSPECIFIED DEMENTIA WITHOUT BEHAVIORAL DISTURBANCE Status: Acute (14) Electrolyte abnormality Code(s): E87.8 - OTH DISORDERS OF ELECTROLYTE AND FLUID BALANCE, NEC Status: Acute (15) Hyperosmolality with hypernatremia Code(s): E87.0 - HYPEROSMOLALITY AND HYPERNATREMIA Status: Acute (16) Lactic acidosis Code(s): E87.2 - ACIDOSIS Status: Acute (17) Metabolic acidosis Code(s): E87.2 - ACIDOSIS Status: Acute (18) Severe protein-calorie malnutrition Code(s): E43 - UNSPECIFIED SEVERE PROTEIN-CALORIE MALNUTRITION Status: Acute (19) Thrombocytopenia Code(s): D69.6 - THROMBOCYTOPENIA, UNSPECIFIED Status: Acute (20) COVID-19 virus infection Code(s): U07.1 - COVID-19 Status: Resolved - Plan plan discussed w/ family 07/28 Discussed extensively with the DPOA Ruth and other family members at the bedside. DNR verified. Family agrees with compassionate extubation tomorrow when other 2 family members arrive. DNR order placed in the chart. Continue supportive care. Will continue IV fluid, antibiotic and stress dose steroid overnight. Plan discuss with critical care Dr. Burger. 07/27 Continue IV ceftriaxone with current IV fluids. Sodium is improved. Continue stress dose steroid. C. difficile negative. Updatehad extensive discussion with family. There were total of 11 family members who came by to see the patient in small groups. Family to make final decision once everyone sees the patient. 07/26 Continue IV ceftriaxone with vancomycin. Continue IV fluid with pressors. Continue stress dose steroid. Replace potassium. Rule out C. difficile. Family to make final decision tomorrow. Not on heparin or Lovenox due to thrombocytopenia. Lactic acid normal. Recheck labs in a.m. 07/25 Continue IV antibiotics. Change IV fluids to D5 half NS. On mechanical ventilation. Heparin on hold due to significant thrombocytopenia. Recheck labs later today. Continue tube feeding. Continue stress dose steroid. Discussed with the familyfamily to make final decision on coming Tuesday. A.m. labs including lactic acid. 07/24 Continue IV ceftriaxone with vancomycin. Continue D5 water. Continue Mechanical ventilation. Case discussed with nephrology and palliative care. Heparin on hold due to severe anemia with thrombocytopenia. Continue stress dose steroid. Continue other medications. Start tube feeding 07/23 Continue pressors. Change meropenem to ceftriaxone. Continue vancomycin with vancomycin level monitoring. Continue mechanical ventilation. Case discussed with Dr. Louis and patient's daughter Ruth. Critical care input appreciated. Heparin on hold due to severe anemia. 07/22 Change IV fluid to D5 water per nephrology recommendation. Transfuse 2 units of PRBC. Continue empiric vancomycin with meropenem. Monitor vancomycin level. Continue low-dose Levophed with mechanical ventilation. Recheck lactic acid in a.m. A.m. labs. Family to discuss with Dr. Louis later today. Continue CCU monitoring. Hold heparin due to significant anemia. Continue stress dose steroid.
[2020-07-28] MEDS ORDERED: Dextrose 5 %-0.45 % NaCl 1,000 ML IV SCH (17:30)
[2020-07-28] MEDS ORDERED: cefTRIAXone\\ROCEPHIN 1 GM in Sodium Chloride 0.9% 100 ML IVPB SCH (20:00)
[2020-07-29] MEDS: Hydrocortisone Sod Succ/PF 100 mg/2 ml Vial IVP SCH ×3 (00:09→12:37)
[2020-07-29 04:27] LABS: Hemoglobin 7.7 g/dL (12.0-16.0); Mean Corpuscular HGB CONC 32.4 g/dL (32.0-36.0); Mean Corpuscular Hemoglobin 28.9 pg (27.0-31.0); Mean Corpuscular Volume 89.2 fL (78.0-98.0); Platelet Count 76 thou/uL (130-400); RBC Distribution Width 13.8 % (11.5-14.5); Red Blood Cell (RBC) Count 2.65 mill/uL (4.20-5.40); White Blood Cell (WBC) Count 19.2 thou/uL (4.8-10.8)
[2020-07-29 04:28] LABS: Band 34 % (5-11); Lymphocytes 1 % (21-51); MDiff Complete? YES; Neutrophil 65 % (42-75); Platelet Morphology Comment Appears Decreased; Target Cells SLIGHT = 2-5 cells (100X) (0-1/hpf)
[2020-07-29 04:31] LABS: Phosphorus 3.7 mg/dL (2.3-4.7)
[2020-07-29 04:32] LABS: ALT (SGPT) Less than 7 U/L (8-55); AST (SGOT) 13 U/L (5-34); Albumin 1.8 g/dL (3.4-4.8); Alkaline Phosphatase 130 U/L (40-110); Anion Gap 17 mmol/L (10-20); BUN (Urea Nitrogen) 96 mg/dL (9.8-20.1); Bilirubin, Total 0.5 mg/dL (0.2-1.2); Calc. Creatinine Clearance 14 mL/min (70-130); Calcium 7.6 mg/dL (7.8-10.44); Carbon Dioxide 16 mmol/L (23-31); Chloride 105 mmol/L (98-107); Estimated GFR-MDRD 25; Globulin 2.7 g/dL (2.4-3.5); Glucose 139 mg/dL (83-110); Magnesium 1.6 mg/dL (1.6-2.6); Potassium 3.9 mmol/L (3.5-5.1); Protein, Total 4.5 g/dL (6.0-8.3); Sodium 134 mmol/L (136-145)
--- NOTE | 2020-07-29 10:23 | PDOC.PALPN ---
Palliative Progress Note - Subjective Intubated with mechanical ventilation, - Objective Vital Signs: Vital Signs - Most Recent Temp Pulse Resp BP Pulse Ox 96.5 F L 67 12 131/57 L 100 07/29/20 08:00 07/29/20 07:25 07/29/20 10:00 07/29/20 02:28 07/28/20 20:30 - Physical Exam Constitutional: cachectic, emaciated, encephalitic, ill appearing HEENT: moist MMs, sclera anicteric Deviation from normal: mechanical ventilation Cardiovascular: RRR Gastrointestinal: soft, non-tender Genitourinary: espinosa catheter Musculoskeletal: diffuse muscle atrophy Deviation from normal: gangrene wound to right lower extremity. Skin: fragile, friable Deviation from normal: Wounds as per wound care photo notes Deviation from normal: encephalopathic - Assessment (1) Dementia Code(s): F03.90 - UNSPECIFIED DEMENTIA WITHOUT BEHAVIORAL DISTURBANCE Current Visit: Yes Status: Acute (2) COPD (chronic obstructive pulmonary disease) Current Visit: Yes Status: Acute (3) Ischemia of right lower extremity Code(s): I99.8 - OTHER DISORDER OF CIRCULATORY SYSTEM Current Visit: No Status: Acute (4) Metabolic encephalopathy Code(s): G93.41 - METABOLIC ENCEPHALOPATHY Current Visit: No Status: Acute - Plan Plan: Patient 4 children to bedside to see their mother. Plan to compassionately extubate today. Patient children have elected Ruth as surrogate decision maker. Family visited with patient, agreed to compassionately extubate, transition to comfort measures. Communicated with Dr Roth and Dr Eubanks, Dr Eubanks. Comfort medications ordered, Morphine and Ativan. Nurse to pronounce. Family support and therapeutic listening. [50] minutes spent on this encounter with >50% of the time in counseling and coordination of care. - ROS Non Response: due to endotracheal tube, due to mental status
--- NOTE | 2020-07-29 11:21 | PRG ---
DATE OF SERVICE: 07/29/2020 SUBJECT: A 79-year-old female, being seen for acute kidney injury. The patient is nonverbal. PHYSICAL EXAMINATION: GENERAL: The patient is resting. VITAL SIGNS: Afebrile, pulse 71, breathing at 16, blood pressure 105/54. HEENT: Head normocephalic and atraumatic. Eyes intact, no ulcers. Nose intact, no ulcers. Ears intact, no ulcers. NECK: Supple. No JVD. CHEST: Symmetrical and clear. CARDIOVASCULAR: Shows S1 and S2, no rub, no murmur. GASTROINTESTINAL: Abdomen is soft, bowel sounds positive. EXTREMITIES: Show no edema or ulcers. SKIN: Shows no rash or petechiae. MUSCULOSKELETAL: Shows no joint swelling or stiffness. GENITOURINARY: Shows no Quintanilla or CVA tenderness. NEUROLOGIC: The patient is resting. LABORATORY DATA: Hemoglobin 7.7. Creatinine is 2.2. ASSESSMENT AND PLAN: 1. Chronic kidney disease, stage 4. Renal function remains stable. 2. Hypertension, stable. I will sign off on this patient. Please reconsult as needed. Job ID: [id number]
[2020-07-29] MEDS ORDERED: Lorazepam 2 MG/ML VIAL SLOW IVP PRN (11:56)
[2020-07-29 14:36] VITALS: TEMP 95.6
[2020-07-29 19:10] VITALS: BP 111/60
[2020-07-30] MEDS: Morphine 4 MG/ML VIAL SLOW IVP PRN ×2 (02:38→06:01)
--- NOTE | 2020-08-01 17:14 | PDOC.HOSPP ---
- Subjective Encounter Date: 07/29/20 Subjective: Patient was seen post extubation. She continues to breathe independently but slightly tachypneic and very shallow breaths. Family has left for the evening. - Objective Vital Signs & Weight: Weight Admit Weight 91 lb Weight 98 lb 5.219 oz Most Recent Monitor Data Heart Rate from ECG 102 NIBP 121/65 NIBP BP-Mean 83 Respiration from ECG 16 SpO2 97 Result Diagrams: 07/29/20 03:50 07/29/20 03:50 - Exam General - other findings: Extubated. Shallow breaths. Heart: RRR, no murmur Heart - other findings: Heart sounds are a bit faint. 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 Code(s): I70.261 - ATHSCL [place] ARTERIES OF EXTREMITIES W GANGRENE, RIGHT LEG Status: Acute (3) COPD (chronic obstructive pulmonary disease) Status: Acute (4) Coagulopathy Status: Acute (5) Dementia Code(s): F03.90 - UNSPECIFIED DEMENTIA WITHOUT BEHAVIORAL DISTURBANCE Status: Acute (6) Ischemia of right lower extremity Code(s): I99.8 - OTHER DISORDER OF CIRCULATORY SYSTEM Status: Acute (7) Lactic acidosis Code(s): E87.2 - ACIDOSIS Status: Acute (8) Metabolic acidosis Code(s): E87.2 - ACIDOSIS Status: Acute (9) Metabolic encephalopathy Code(s): G93.41 - METABOLIC ENCEPHALOPATHY Status: Acute (10) Severe protein-calorie malnutrition Code(s): E43 - UNSPECIFIED SEVERE PROTEIN-CALORIE MALNUTRITION Status: Acute (11) Thrombocytopenia Code(s): D69.6 - THROMBOCYTOPENIA, UNSPECIFIED Status: Acute - Plan Patient has been extubated compassionately. We are currently in comfort care measures only. Patient will be transferred to the oncology unit and she has comfort medications prescribed by the palliative care team.
--- NOTE | 2020-08-02 02:48 | DIS ---
DATE OF ADMISSION: 07/21/2020 DATE OF DISCHARGE: 07/30/2020 DATE OF : 07/30/2020. DISCHARGE DIAGNOSES: 1. Septic shock. 2. Gangrene of the right lower extremity. 3. Critical ischemia of the right lower extremity. 4. Peripheral vascular disease. 5. Acute metabolic encephalopathy. 6. Lactic acidosis. 7. Severe protein-calorie malnutrition. 8. Rheumatoid arthritis. 9. Dementia. 10. Chronic obstructive pulmonary disease. 11. Acute on chronic anemia. 12. Coagulopathy. 13. Hypernatremia. 14. Acute on chronic kidney disease, stage 4. 15. Hypoalbuminemia. HISTORY OF PRESENT ILLNESS: This patient is a 79-year-old female who presented to the emergency department with severe mixed wet and dry gangrene of her right lower extremity with superimposed infection and sepsis. The patient was altered and in septic shock with hypotension. She had a sodium of 168 and elevated troponins, severe lactic acidosis and a GFR of 20. The patient was critically ill and the patient's family wanted aggressive interventions, however, did not want to consider amputation of the ischemic infected right lower extremity, which was the source of the underlying problem. The patient was intubated in the emergency department, given fluids and pressors. HOSPITAL COURSE: The patient was admitted to the hospital. She was seen in consultation by numerous providers including Nephrology, Infectious Disease, Palliative Care, Surgery and all of them agreed that this patient was not a good candidate for surgery given the fairly severe protein-calorie malnutrition, advanced dementia, and profound debility; however, that would have been the only potential option for her to have any improvement and with that not being an option, I felt that this was a case that would most likely be appropriate for palliative and hospice measures. However, the family wanted to continue with aggressive therapy. She was on antibiotics and fluids. She was transfused, and other appropriate measures in order to try to sustain the patient. Ultimately, however, it was clear that the patient was not improving and was not going to improve, hence the family did ultimately decide to compassionately extubate the patient and make her a do not resuscitate. The patient was extubated on 07/29/2020 with the family at the bedside. The patient survived until the following morning when the patient at 0628. Job ID: [id number]
--- NOTE | 2020-08-02 12:53 | EKG ---
Test Reason : Blood Pressure : / mmHG Vent. Rate : 127 BPM Atrial Rate : 127 BPM P-R Int : 128 ms QRS Dur : 086 ms QT Int : 306 ms P-R-T Axes : 085 035 180 degrees QTc Int : 444 ms Sinus tachycardia with occasional Premature ventricular complexes Low voltage QRS Nonspecific ST and T wave abnormality Abnormal ECG Confirmed by EDWARD MONROE ([id number]), content editor PENNY GIBSON ([id number]) on 08/02/2020 12:53:00 PM Referred By: Confirmed By:EDWARD Davis
== END 2020-07-30 06:28 | disposition expired | DRG 870 ==
LOC: ERS 05:59 → CCU 10:01 → ONC 07-29 18:28
PROVIDERS: ADMIT Internal Medicine; ATTEND Internal Medicine
PROC: 5A1955Z Respiratory Ventilation, Greater than 96 Consecutive Hours (ICD-10-PCS; principal; 2020-07-21)
PROC: 02H633Z Insertion of Infusion Device into Right Atrium, Percutaneous Approach (ICD-10-PCS; 2020-07-21)
PROC: 3E043XZ Introduction of Vasopressor into Central Vein, Percutaneous Approach (ICD-10-PCS; 2020-07-21)
PROC: 0BH17EZ Insertion of Endotracheal Airway into Trachea, Via Natural or Artificial Opening (ICD-10-PCS; 2020-07-21)
PROC: 8E0ZXY6 Isolation (ICD-10-PCS; 2020-07-21)
PROC: 30233N1 Transfusion of Nonautologous Red Blood Cells into Peripheral Vein, Percutaneous Approach (ICD-10-PCS; 2020-07-22)
DX: A41.51 Sepsis due to Escherichia coli [E. coli] (principal); U07.1 COVID-19; R65.21 Severe sepsis with septic shock; G92 Toxic encephalopathy; E43 Unspecified severe protein-calorie malnutrition; N17.0 Acute kidney failure with tubular necrosis; J69.0 Pneumonitis due to inhalation of food and vomit; J96.01 Acute respiratory failure with hypoxia; R64 Cachexia; E87.0 Hyperosmolality and hypernatremia; E87.2 Acidosis; E27.40 Unspecified adrenocortical insufficiency; N39.0 Urinary tract infection, site not specified; D68.8 Other specified coagulation defects; N18.4 Chronic kidney disease, stage 4 (severe); I70.261 Atherosclerosis of native arteries of extremities with gangrene, right leg; N17.9 Acute kidney failure, unspecified; Z51.5 Encounter for palliative care; Z66 Do not resuscitate; J44.9 Chronic obstructive pulmonary disease, unspecified; G30.9 Alzheimer's disease, unspecified; F02.80 Dementia in other diseases classified elsewhere, unspecified severity, without behavioral disturbance, psychotic disturbance, mood disturbance, and anxiety; K21.9 Gastro-esophageal reflux disease without esophagitis; M06.9 Rheumatoid arthritis, unspecified; D53.9 Nutritional anemia, unspecified; E86.0 Dehydration; E86.9 Volume depletion, unspecified; I12.9 Hypertensive chronic kidney disease with stage 1 through stage 4 chronic kidney disease, or unspecified chronic kidney disease; E88.09 Other disorders of plasma-protein metabolism, not elsewhere classified; E87.8 Other disorders of electrolyte and fluid balance, not elsewhere classified; D69.59 Other secondary thrombocytopenia; E87.6 Hypokalemia; E83.42 Hypomagnesemia; Z79.899 Other long term (current) drug therapy; Z68.20 Body mass index [BMI] 20.0-20.9, adult; Z79.51 Long term (current) use of inhaled steroids
CPT/HCPCS: 31500; 36415; 36416; 36430; 36556; 51702; 71045; 80053; 80202; 81003; 81015; 82010; 82533; 82553; 82607; 82728; 82746; 82805; 83605; 83735; 83930; 84100; 84484; 85007; 85025; 85027; 85046; 85379; 85610; 85730; 86140; 86769; 86850; 86900; 86901; 87040; 87077; 87086; 87149; 87186; 87324; 87449; 93005; 94002; 94003; 94760; 96361; 96365; 96366; 96367; 96368; 99292; J0692; J0696; J1644; J1720; J1815; J2060; J2185; J2270; J3010; J3370; J3480; J3490; J7050; J7070; P9016; S0028; U0002